=== PATIENT | male | born 1970 | race Caucasian/White ===

== ENCOUNTER 2017-04-06 07:15 | Inpatient (IN) | payer MEDICARE, OTHER ==
[~2017-04-06] VITALS: Ht 167.6 cm; Wt 62.0 kg
[~2017-04-06 07:15] MED LIST: AMLO10 PO; ASPI81EC PO; BUSP15; Bactrim Ds Tab1 EACH PO; CALCA500CH PO; CHLO25 PO; CIPR500 PO; CITA10S PO; CITA20 PO; Cymbalta60 MG PO; DEPRESSION MED; DIVA250EC PO; DIVA500EC PO; ESCI10; ESCI20; FLUO20 PO; HYDACE5 PO; HYDCHL25 PO; IBUP600 PO; IBUP800 PO; LISI10 PO; NAPR500; NAPR500 PO; Oxazepam10 MG PO; PENVK500; PENVK500 PO; PHENY100ER PO; PIRO20; POTCHL20ER PO; Protonix40 MG PO; QUET100; QUET25; RANI150; RANI150 PO; RXPENVK250 PO; SULTRISS PO; TAMS.4ER PO; TRAZ50
[2017-04-06] MEDS ORDERED: PHENY100ER PO ×2 (07:31)
[2017-04-06 10:43] LABS: BASOPHILS ABSOLUTE AUTO 0.02 K/mm3 (0.00-0.23); BASOPHILS PERCENT AUTO 0 % (0-2); EOSINOPHILS ABSOLUTE AUTO 0.08 K/mm3 (0.00-0.68); EOSINOPHILS PERCENT AUTO 1 % (0-6); Hematocrit 46.6 % (37.0-53.0); Hemoglobin 14.8 g/dL (13.5-17.5); IMMATURE GRAN ABSOLUTE AUTO 0.06 K/mm3 (0.00-0.10); IMMATURE GRAN PERCENT AUTO 1 % (0-1); LYMPHOCYTES ABSOLUTE AUTO 4.83 K/mm3 (0.84-5.20); LYMPHOCYTES PERCENT AUTO 45 % (21-46); MONOCYTES ABSOLUTE AUTO 0.43 K/mm3 (0.16-1.47); MONOCYTES PERCENT AUTO 4 % (4-13); Mean Corpuscular HGB Conc 31.8 g/dL (31.5-36.5); Mean Platelet Volume 8.7 fL (9.1-12.4); NEUTROPHILS ABSOLUTE AUTO 5.31 K/mm3 (1.96-9.15); NEUTROPHILS PERCENT AUTO 50 % (41-73); Platelet Count 514 K/mm3 (150-400); RDW Coefficient Variation 13.2 % (11.7-14.2); RDW Standard Deviation 49.1 fL (35.1-46.3); Red Blood Cell Count 4.62 M/mm3 (4.30-5.90); White Blood Cell Count 10.73 K/mm3 (4.00-11.30)
[2017-04-06 10:47] LABS: Mean Corpuscular Volume 101 fL (80-100)
[2017-04-06 11:05] LABS: Anion Gap 22 mmol/L (6-16); Blood Urea Nitrogen 10 mg/dL (8-24); CO2, Blood 12 mmol/L (21-32); Chloride, Blood 107 mmol/L (98-108); Creatinine, Blood 0.83 mg/dL (0.60-1.20); Dilantin (Phenytoin), Total 0.7 ug/mL (10.0-20.0); Glomerular Filtration Rate >60 (60-); Glucose, Blood 166 mg/dL (70-99); Potassium, Blood 4.8 mmol/L (3.5-5.5); Sodium, Blood 141 mmol/L (136-145)
[2017-04-06 11:21] LABS: Base Excess Venous -13.3 mmol/L; Bicarbonate Venous 14.7 mmol/L (24.0-30.0); PCO2 Venous 42.7 mmHg (38-42); PO2 Venous 308 mmHg (38-42)
[2017-04-06 11:22] LABS: pH Blood Venous 7.17 (7.34-7.37)
[2017-04-07 04:06] LABS: BASOPHILS ABSOLUTE AUTO 0.02 K/mm3 (0.00-0.23); BASOPHILS PERCENT AUTO 0 % (0-2); EOSINOPHILS ABSOLUTE AUTO 0.02 K/mm3 (0.00-0.68); EOSINOPHILS PERCENT AUTO 0 % (0-6); Hematocrit 33.4 % (37.0-53.0); Hemoglobin 11.1 g/dL (13.5-17.5); IMMATURE GRAN ABSOLUTE AUTO 0.01 K/mm3 (0.00-0.10); IMMATURE GRAN PERCENT AUTO 0 % (0-1); LYMPHOCYTES ABSOLUTE AUTO 1.29 K/mm3 (0.84-5.20); LYMPHOCYTES PERCENT AUTO 18 % (21-46); MONOCYTES ABSOLUTE AUTO 0.73 K/mm3 (0.16-1.47); MONOCYTES PERCENT AUTO 10 % (4-13); Mean Corpuscular HGB Conc 33.2 g/dL (31.5-36.5); Mean Platelet Volume 8.3 fL (9.1-12.4); NEUTROPHILS ABSOLUTE AUTO 5.09 K/mm3 (1.96-9.15); NEUTROPHILS PERCENT AUTO 71 % (41-73); Platelet Count 294 K/mm3 (150-400); RDW Coefficient Variation 13.1 % (11.7-14.2); RDW Standard Deviation 45.9 fL (35.1-46.3); Red Blood Cell Count 3.47 M/mm3 (4.30-5.90); White Blood Cell Count 7.16 K/mm3 (4.00-11.30)
[2017-04-07 04:12] LABS: Mean Corpuscular Volume 96 fL (80-100)
[2017-04-07 04:30] LABS: Magnesium, Blood 2.3 mg/dL (1.6-2.4)
[2017-04-07 04:34] LABS: Dilantin (Phenytoin), Total 16.9 ug/mL (10.0-20.0)
[2017-04-07 04:53] LABS: Alanine Aminotransfer (ALT/SGP 24 U/L (12-78); Alk Phos 68 U/L (50-136); Anion Gap 8 mmol/L (6-16); Aspartate Aminotrans (AST/SGOT 25 U/L (12-37); Bilirubin, Total 0.7 mg/dL (0.1-1.0); Blood Urea Nitrogen 9 mg/dL (8-24); Bun/Creatinine Ratio 10.4 (12.0-20.0); CO2, Blood 27 mmol/L (21-32); Calcium, Blood 7.7 mg/dL (8.5-10.1); Chloride, Blood 106 mmol/L (98-108); Creatinine, Blood 0.86 mg/dL (0.60-1.20); Globulin, Blood 2.9 g/dL (2.2-4.0); Glomerular Filtration Rate >60 (60-); Glucose, Blood 110 mg/dL (70-99); Potassium, Blood 3.1 mmol/L (3.5-5.5); Sodium, Blood 141 mmol/L (136-145); Total Protein, Blood 5.9 g/dL (6.4-8.2)
[2017-04-07 09:12] LABS: PCO2 Arterial 35.8 mmHg (35-45); pH Blood Arterial 7.49 (7.35-7.45)
[2017-04-08 06:36] LABS: BASOPHILS ABSOLUTE AUTO 0.02 K/mm3 (0.00-0.23); BASOPHILS PERCENT AUTO 0 % (0-2); EOSINOPHILS ABSOLUTE AUTO 0.26 K/mm3 (0.00-0.68); EOSINOPHILS PERCENT AUTO 4 % (0-6); Hematocrit 36.5 % (37.0-53.0); Hemoglobin 12.1 g/dL (13.5-17.5); IMMATURE GRAN ABSOLUTE AUTO 0.01 K/mm3 (0.00-0.10); IMMATURE GRAN PERCENT AUTO 0 % (0-1); LYMPHOCYTES ABSOLUTE AUTO 1.55 K/mm3 (0.84-5.20); LYMPHOCYTES PERCENT AUTO 23 % (21-46); MONOCYTES PERCENT AUTO 4 % (4-13); Mean Corpuscular HGB 31.8 pg (26.0-34.0); Mean Corpuscular HGB Conc 33.2 g/dL (31.5-36.5); Mean Corpuscular Volume 96 fL (80-100); Mean Platelet Volume 8.5 fL (9.1-12.4); NEUTROPHILS ABSOLUTE AUTO 4.63 K/mm3 (1.96-9.15); NEUTROPHILS PERCENT AUTO 69 % (41-73); Platelet Count 306 K/mm3 (150-400); RDW Coefficient Variation 12.9 % (11.7-14.2); RDW Standard Deviation 45.1 fL (35.1-46.3); Red Blood Cell Count 3.81 M/mm3 (4.30-5.90); White Blood Cell Count 6.77 K/mm3 (4.00-11.30)
[2017-04-08 06:53] LABS: Alanine Aminotransfer (ALT/SGP 24 U/L (12-78); Albumin, Blood 2.9 g/dL (3.4-5.0); Albumin/Globulin Ratio 0.8 (0.8-1.8); Alk Phos 69 U/L (50-136); Anion Gap 6 mmol/L (6-16); Aspartate Aminotrans (AST/SGOT 24 U/L (12-37); Bilirubin, Total 0.4 mg/dL (0.1-1.0); Blood Urea Nitrogen 4 mg/dL (8-24); Bun/Creatinine Ratio 5.2 (12.0-20.0); CO2, Blood 29 mmol/L (21-32); Chloride, Blood 106 mmol/L (98-108); Creatinine, Blood 0.77 mg/dL (0.60-1.20); Globulin, Blood 3.5 g/dL (2.2-4.0); Glomerular Filtration Rate >60 (60-); Glucose, Blood 122 mg/dL (70-99); Potassium, Blood 3.3 mmol/L (3.5-5.5); Sodium, Blood 141 mmol/L (136-145); Total Protein, Blood 6.4 g/dL (6.4-8.2)
[2017-04-09 05:59] LABS: Anion Gap 5 mmol/L (6-16); Blood Urea Nitrogen 6 mg/dL (8-24); Bun/Creatinine Ratio 7.8 (12.0-20.0); CO2, Blood 28 mmol/L (21-32); Calcium, Blood 8.1 mg/dL (8.5-10.1); Chloride, Blood 107 mmol/L (98-108); Creatinine, Blood 0.77 mg/dL (0.60-1.20); Glomerular Filtration Rate >60 (60-); Glucose, Blood 93 mg/dL (70-99); Potassium, Blood 3.8 mmol/L (3.5-5.5); Sodium, Blood 140 mmol/L (136-145)
[2017-04-09] MEDS ORDERED: Hair, Skin & N1 EACH PO ×2 (10:22)
[2017-04-09] MEDS ORDERED: PANT40 PO ×2 (10:22)
[2017-04-09] MEDS ORDERED: THIA100 PO ×2 (10:24)
[2017-10-25] MEDS ORDERED: PHENY100ER (03:55)
== END 2017-04-09 10:38 | disposition home or self-care (01) | DRG 208 ==
LOC: ER 07:15 → ICUW 12:10 → PCU 12:10 → ICUE 12:10 → PCU 04-07 19:42
PROVIDERS: Emergency Medicine; Internal Medicine; Internal Medicine Pulmonary Disease
PROC: 5A1935Z Respiratory Ventilation, Less than 24 Consecutive Hours (ICD-10-PCS; principal; 2017-04-06)
PROC: 0BH17EZ Insertion of Endotracheal Airway into Trachea, Via Natural or Artificial Opening (ICD-10-PCS; 2017-04-06)
DX: J69.0 Pneumonitis due to inhalation of food and vomit (principal); J96.01 Acute respiratory failure with hypoxia; G93.40 Encephalopathy, unspecified; F10.230 Alcohol dependence with withdrawal, uncomplicated; G40.909 Epilepsy, unspecified, not intractable, without status epilepticus; B19.20 Unspecified viral hepatitis C without hepatic coma; F95.2 Tourette's disorder; F20.9 Schizophrenia, unspecified; F32.9 Major depressive disorder, single episode, unspecified; N40.0 Benign prostatic hyperplasia without lower urinary tract symptoms; J44.9 Chronic obstructive pulmonary disease, unspecified; F17.210 Nicotine dependence, cigarettes, uncomplicated; R62.7 Adult failure to thrive; E87.6 Hypokalemia; F10.220 Alcohol dependence with intoxication, uncomplicated; W19.XXXA Unspecified fall, initial encounter; Z59.0 Homelessness; Z91.018 Allergy to other foods; Z79.899 Other long term (current) drug therapy; Z91.14 Patient's other noncompliance with medication regimen
CPT/HCPCS: 31500; 31720; 36415; 36600; 51702; 71045; 71046; 80048; 80053; 80185; 81003; 82803; 83735; 85025; 93005; 93010; 94002; 94003; 94640; 94760; 96365; 96366; 96375; 99283; 99291; 99292; C9113; G0480; J0696; J1165; J1630; J1650; J2060; J2250; J2543; J3010; J3411; J3475; J3480; J7030; J7042

== ENCOUNTER 2017-04-11 21:19 | Observation (INO) | payer MEDICARE, OTHER ==
[~2017-04-11] VITALS: Ht 172.7 cm; Wt 68.0 kg
[~2017-04-11 21:19] MED LIST changes: +Hair, Skin & N1 EACH PO; +PANT40 PO; +THIA100 PO
[2017-04-11 22:12] LABS: BASOPHILS ABSOLUTE AUTO 0.04 K/mm3 (0.00-0.23); BASOPHILS PERCENT AUTO 1 % (0-2); EOSINOPHILS ABSOLUTE AUTO 0.26 K/mm3 (0.00-0.68); EOSINOPHILS PERCENT AUTO 3 % (0-6); Hematocrit 39.9 % (37.0-53.0); Hemoglobin 13.3 g/dL (13.5-17.5); IMMATURE GRAN ABSOLUTE AUTO 0.06 K/mm3 (0.00-0.10); IMMATURE GRAN PERCENT AUTO 1 % (0-1); LYMPHOCYTES ABSOLUTE AUTO 2.43 K/mm3 (0.84-5.20); LYMPHOCYTES PERCENT AUTO 28 % (21-46); MONOCYTES ABSOLUTE AUTO 0.49 K/mm3 (0.16-1.47); MONOCYTES PERCENT AUTO 6 % (4-13); Mean Corpuscular HGB 31.9 pg (26.0-34.0); Mean Corpuscular HGB Conc 33.3 g/dL (31.5-36.5); Mean Corpuscular Volume 96 fL (80-100); Mean Platelet Volume 8.8 fL (9.1-12.4); NEUTROPHILS ABSOLUTE AUTO 5.46 K/mm3 (1.96-9.15); NEUTROPHILS PERCENT AUTO 62 % (41-73); Platelet Count 309 K/mm3 (150-400); RDW Standard Deviation 44.9 fL (35.1-46.3); Red Blood Cell Count 4.17 M/mm3 (4.30-5.90); White Blood Cell Count 8.74 K/mm3 (4.00-11.30)
[2017-04-11 22:36] LABS: Anion Gap 13 mmol/L (6-16); Blood Urea Nitrogen 7 mg/dL (8-24); Bun/Creatinine Ratio 12.3 (12.0-20.0); CO2, Blood 23 mmol/L (21-32); Calcium, Blood 8.4 mg/dL (8.5-10.1); Chloride, Blood 108 mmol/L (98-108); Creatinine, Blood 0.57 mg/dL (0.60-1.20); Dilantin (Phenytoin), Total 4.9 ug/mL (10.0-20.0); Glomerular Filtration Rate >60 (60-); Glucose, Blood 116 mg/dL (70-99); Potassium, Blood 3.4 mmol/L (3.5-5.5); Sodium, Blood 144 mmol/L (136-145)
[2017-04-11 22:40] LABS: Ethanol (Alcohol), Blood, Med 385 mg/dL
[2017-10-25] MEDS ORDERED: PHENY100ER (03:55)
== END 2017-04-12 06:42 | disposition home or self-care (01) ==
LOC: ER 21:19 → EOR 21:20
PROVIDERS: Emergency Medicine
DX: F10.129 Alcohol abuse with intoxication, unspecified (principal); F20.9 Schizophrenia, unspecified; F06.2 Psychotic disorder with delusions due to known physiological condition; F95.2 Tourette's disorder; R48.0 Dyslexia and alexia; Z90.49 Acquired absence of other specified parts of digestive tract; Z86.19 Personal history of other infectious and parasitic diseases; Z86.14 Personal history of Methicillin resistant Staphylococcus aureus infection; Z91.018 Allergy to other foods; Z79.899 Other long term (current) drug therapy; Z98.890 Other specified postprocedural states; Y90.8 Blood alcohol level of 240 mg/100 ml or more
CPT/HCPCS: 80048; 80185; 85025; 99285; G0378; G0480; J1630

== ENCOUNTER 2017-04-14 18:00 | Observation (INO) | payer MEDICARE, OTHER ==
[~2017-04-14] VITALS: Ht 165.1 cm; Wt 59.0 kg
[2017-04-14 19:01] LABS: BASOPHILS ABSOLUTE AUTO 0.02 K/mm3 (0.00-0.23); BASOPHILS PERCENT AUTO 0 % (0-2); EOSINOPHILS ABSOLUTE AUTO 0.08 K/mm3 (0.00-0.68); EOSINOPHILS PERCENT AUTO 2 % (0-6); Hematocrit 39.4 % (37.0-53.0); Hemoglobin 13.1 g/dL (13.5-17.5); IMMATURE GRAN ABSOLUTE AUTO 0.05 K/mm3 (0.00-0.10); IMMATURE GRAN PERCENT AUTO 1 % (0-1); LYMPHOCYTES ABSOLUTE AUTO 2.28 K/mm3 (0.84-5.20); LYMPHOCYTES PERCENT AUTO 44 % (21-46); MONOCYTES ABSOLUTE AUTO 0.21 K/mm3 (0.16-1.47); MONOCYTES PERCENT AUTO 4 % (4-13); Mean Corpuscular HGB 32.3 pg (26.0-34.0); Mean Corpuscular HGB Conc 33.2 g/dL (31.5-36.5); Mean Corpuscular Volume 97 fL (80-100); Mean Platelet Volume 9.3 fL (9.1-12.4); NEUTROPHILS ABSOLUTE AUTO 2.54 K/mm3 (1.96-9.15); NEUTROPHILS PERCENT AUTO 49 % (41-73); Platelet Count 158 K/mm3 (150-400); RDW Coefficient Variation 13.5 % (11.7-14.2); RDW Standard Deviation 48.2 fL (35.1-46.3); Red Blood Cell Count 4.06 M/mm3 (4.30-5.90); White Blood Cell Count 5.18 K/mm3 (4.00-11.30)
[2017-04-14 19:23] LABS: Anion Gap 7 mmol/L (6-16); Blood Urea Nitrogen 8 mg/dL (8-24); Bun/Creatinine Ratio 12.8 (12.0-20.0); CO2, Blood 28 mmol/L (21-32); Calcium, Blood 8.7 mg/dL (8.5-10.1); Chloride, Blood 109 mmol/L (98-108); Creatinine, Blood 0.62 mg/dL (0.60-1.20); Glomerular Filtration Rate >60 (60-); Glucose, Blood 96 mg/dL (70-99); Sodium, Blood 144 mmol/L (136-145)
[2017-04-14 19:26] LABS: Ethanol (Alcohol), Blood, Med 305 mg/dL
[2017-10-25] MEDS ORDERED: PHENY100ER (03:55)
== END 2017-04-15 01:39 | disposition home or self-care (01) ==
LOC: ER 18:00 → EOR 18:01
PROVIDERS: Emergency Medicine
DX: S20.211A Contusion of right front wall of thorax, initial encounter (principal); F10.129 Alcohol abuse with intoxication, unspecified; F95.2 Tourette's disorder; F17.210 Nicotine dependence, cigarettes, uncomplicated; R48.0 Dyslexia and alexia; F20.9 Schizophrenia, unspecified; Z86.19 Personal history of other infectious and parasitic diseases; Z86.14 Personal history of Methicillin resistant Staphylococcus aureus infection; Z91.018 Allergy to other foods; Z90.49 Acquired absence of other specified parts of digestive tract; Z98.890 Other specified postprocedural states; Z79.899 Other long term (current) drug therapy; Y90.8 Blood alcohol level of 240 mg/100 ml or more; W08.XXXA Fall from other furniture, initial encounter
CPT/HCPCS: 70450; 71260; 72125; 80048; 85025; 96365; 96375; 99285; G0378; G0480; J1165; J1200; J1630; J2060; Q9967

== ENCOUNTER 2017-04-18 17:49 | Observation (INO) | payer MEDICARE, OTHER ==
[~2017-04-18] VITALS: Ht 170.2 cm; Wt 63.5 kg
[2017-04-18 22:45] LABS: BASOPHILS ABSOLUTE AUTO 0.04 K/mm3 (0.00-0.23); BASOPHILS PERCENT AUTO 1 % (0-2); EOSINOPHILS PERCENT AUTO 2 % (0-6); Hematocrit 40.3 % (37.0-53.0); Hemoglobin 13.1 g/dL (13.5-17.5); IMMATURE GRAN ABSOLUTE AUTO 0.06 K/mm3 (0.00-0.10); IMMATURE GRAN PERCENT AUTO 1 % (0-1); LYMPHOCYTES ABSOLUTE AUTO 1.95 K/mm3 (0.84-5.20); LYMPHOCYTES PERCENT AUTO 33 % (21-46); MONOCYTES ABSOLUTE AUTO 0.44 K/mm3 (0.16-1.47); MONOCYTES PERCENT AUTO 8 % (4-13); Mean Corpuscular HGB 31.5 pg (26.0-34.0); Mean Corpuscular HGB Conc 32.5 g/dL (31.5-36.5); Mean Corpuscular Volume 97 fL (80-100); Mean Platelet Volume 8.4 fL (9.1-12.4); NEUTROPHILS PERCENT AUTO 56 % (41-73); Platelet Count 253 K/mm3 (150-400); RDW Coefficient Variation 13.8 % (11.7-14.2); RDW Standard Deviation 48.5 fL (35.1-46.3); Red Blood Cell Count 4.16 M/mm3 (4.30-5.90); White Blood Cell Count 5.89 K/mm3 (4.00-11.30)
[2017-04-18 23:01] LABS: Anion Gap 9 mmol/L (6-16); Blood Urea Nitrogen 11 mg/dL (8-24); Bun/Creatinine Ratio 19.4 (12.0-20.0); CO2, Blood 25 mmol/L (21-32); Calcium, Blood 7.9 mg/dL (8.5-10.1); Chloride, Blood 113 mmol/L (98-108); Creatinine, Blood 0.57 mg/dL (0.60-1.20); Glomerular Filtration Rate >60 (60-); Glucose, Blood 97 mg/dL (70-99); Potassium, Blood 3.7 mmol/L (3.5-5.5); Sodium, Blood 147 mmol/L (136-145)
[2017-04-18 23:08] LABS: Ethanol (Alcohol), Blood, Med 516 mg/dL
[2017-10-25] MEDS ORDERED: PHENY100ER (03:55)
== END 2017-04-19 10:35 | disposition home or self-care (01) ==
LOC: ER 17:49 → EOR 17:50
PROVIDERS: Emergency Medicine
DX: F10.129 Alcohol abuse with intoxication, unspecified (principal); R45.851 Suicidal ideations; R56.9 Unspecified convulsions; Z86.19 Personal history of other infectious and parasitic diseases; F20.9 Schizophrenia, unspecified; Z90.49 Acquired absence of other specified parts of digestive tract; Z98.890 Other specified postprocedural states; Z86.14 Personal history of Methicillin resistant Staphylococcus aureus infection; Y90.8 Blood alcohol level of 240 mg/100 ml or more; Z79.899 Other long term (current) drug therapy
CPT/HCPCS: 36415; 80048; 85025; 96372; 99285; G0378; G0480; J1630

== ENCOUNTER 2017-04-21 16:21 | Observation (INO) | payer MEDICARE, OTHER ==
[~2017-04-21] VITALS: Ht 167.6 cm; Wt 63.5 kg
[2017-04-21 16:59] LABS: BASOPHILS ABSOLUTE AUTO 0.05 K/mm3 (0.00-0.23); BASOPHILS PERCENT AUTO 1 % (0-2); EOSINOPHILS ABSOLUTE AUTO 0.05 K/mm3 (0.00-0.68); EOSINOPHILS PERCENT AUTO 1 % (0-6); Hematocrit 42.5 % (37.0-53.0); Hemoglobin 14.3 g/dL (13.5-17.5); IMMATURE GRAN ABSOLUTE AUTO 0.02 K/mm3 (0.00-0.10); IMMATURE GRAN PERCENT AUTO 0 % (0-1); LYMPHOCYTES ABSOLUTE AUTO 1.95 K/mm3 (0.84-5.20); LYMPHOCYTES PERCENT AUTO 31 % (21-46); MONOCYTES ABSOLUTE AUTO 0.37 K/mm3 (0.16-1.47); MONOCYTES PERCENT AUTO 6 % (4-13); Mean Corpuscular HGB 31.7 pg (26.0-34.0); Mean Corpuscular HGB Conc 33.6 g/dL (31.5-36.5); Mean Platelet Volume 8.2 fL (9.1-12.4); NEUTROPHILS ABSOLUTE AUTO 3.82 K/mm3 (1.96-9.15); NEUTROPHILS PERCENT AUTO 61 % (41-73); Platelet Count 344 K/mm3 (150-400); RDW Coefficient Variation 13.4 % (11.7-14.2); RDW Standard Deviation 46.4 fL (35.1-46.3); Red Blood Cell Count 4.51 M/mm3 (4.30-5.90); White Blood Cell Count 6.26 K/mm3 (4.00-11.30)
[2017-04-21 17:15] LABS: Anion Gap 8 mmol/L (6-16); Blood Urea Nitrogen 8 mg/dL (8-24); Bun/Creatinine Ratio 12.9 (12.0-20.0); CO2, Blood 29 mmol/L (21-32); Chloride, Blood 103 mmol/L (98-108); Creatinine, Blood 0.62 mg/dL (0.60-1.20); Glomerular Filtration Rate >60 (60-); Glucose, Blood 109 mg/dL (70-99); Potassium, Blood 3.9 mmol/L (3.5-5.5); Sodium, Blood 140 mmol/L (136-145)
[2017-04-21 17:18] LABS: Ethanol (Alcohol), Blood, Med 488 mg/dL
[2017-04-21 17:29] LABS: Mean Corpuscular Volume 94 fL (80-100)
[2017-10-25] MEDS ORDERED: PHENY100ER (03:55)
== END 2017-04-21 20:45 | disposition home or self-care (01) ==
LOC: ER 16:21 → EOR 16:22
PROVIDERS: Emergency Medicine
DX: F10.129 Alcohol abuse with intoxication, unspecified (principal); F20.9 Schizophrenia, unspecified; F95.2 Tourette's disorder; R48.0 Dyslexia and alexia; F80.81 Childhood onset fluency disorder; Z90.49 Acquired absence of other specified parts of digestive tract; Z98.890 Other specified postprocedural states; Z91.018 Allergy to other foods; Z59.0 Homelessness; Y90.8 Blood alcohol level of 240 mg/100 ml or more
CPT/HCPCS: 36415; 80048; 85025; 96361; 96372; 96374; 99283; 99285; G0378; G0480; J1630; J2250; J7030

== ENCOUNTER 2017-04-21 21:03 | Emergency (ER) | payer MEDICARE, OTHER ==
[2017-10-25] MEDS ORDERED: PHENY100ER (03:55)
== END 2017-04-21 21:54 | disposition left against medical advice (07) ==
LOC: ER 21:03
DX: Z53.21 Procedure and treatment not carried out due to patient leaving prior to being seen by health care provider (principal)

== ENCOUNTER 2017-04-24 19:04 | Observation (INO) | payer MEDICARE, OTHER ==
[~2017-04-24] VITALS: Ht 167.6 cm; Wt 68.0 kg
[2017-04-24 22:08] LABS: BASOPHILS ABSOLUTE AUTO 0.04 K/mm3 (0.00-0.23); BASOPHILS PERCENT AUTO 1 % (0-2); EOSINOPHILS ABSOLUTE AUTO 0.16 K/mm3 (0.00-0.68); EOSINOPHILS PERCENT AUTO 3 % (0-6); Hematocrit 44.6 % (37.0-53.0); Hemoglobin 14.9 g/dL (13.5-17.5); IMMATURE GRAN ABSOLUTE AUTO 0.04 K/mm3 (0.00-0.10); IMMATURE GRAN PERCENT AUTO 1 % (0-1); LYMPHOCYTES ABSOLUTE AUTO 1.74 K/mm3 (0.84-5.20); LYMPHOCYTES PERCENT AUTO 32 % (21-46); MONOCYTES PERCENT AUTO 6 % (4-13); Mean Corpuscular HGB Conc 33.4 g/dL (31.5-36.5); Mean Corpuscular Volume 96 fL (80-100); Mean Platelet Volume 8.5 fL (9.1-12.4); NEUTROPHILS ABSOLUTE AUTO 3.19 K/mm3 (1.96-9.15); NEUTROPHILS PERCENT AUTO 58 % (41-73); Platelet Count 299 K/mm3 (150-400); RDW Coefficient Variation 14.2 % (11.7-14.2); RDW Standard Deviation 49.1 fL (35.1-46.3); Red Blood Cell Count 4.66 M/mm3 (4.30-5.90); White Blood Cell Count 5.47 K/mm3 (4.00-11.30)
[2017-04-24 22:34] LABS: Alanine Aminotransfer (ALT/SGP 25 U/L (12-78); Albumin, Blood 4.2 g/dL (3.4-5.0); Alk Phos 93 U/L (50-136); Anion Gap 11 mmol/L (6-16); Aspartate Aminotrans (AST/SGOT 29 U/L (12-37); Bilirubin, Total 0.2 mg/dL (0.1-1.0); Blood Urea Nitrogen 8 mg/dL (8-24); Bun/Creatinine Ratio 13.1 (12.0-20.0); CO2, Blood 26 mmol/L (21-32); Calcium, Blood 8.5 mg/dL (8.5-10.1); Chloride, Blood 108 mmol/L (98-108); Creatinine, Blood 0.61 mg/dL (0.60-1.20); Globulin, Blood 4.2 g/dL (2.2-4.0); Glomerular Filtration Rate >60 (60-); Glucose, Blood 109 mg/dL (70-99); Magnesium, Blood 2.5 mg/dL (1.6-2.4); Potassium, Blood 3.5 mmol/L (3.5-5.5); Sodium, Blood 145 mmol/L (136-145); Total Protein, Blood 8.4 g/dL (6.4-8.2)
[2017-04-24 22:45] LABS: Ethanol (Alcohol), Blood, Med 377 mg/dL
[2017-04-25] MEDS ORDERED: RID COMPLETE TOP (05:42)
[2017-10-25] MEDS ORDERED: PHENY100ER (03:55)
== END 2017-04-25 05:47 | disposition home or self-care (01) ==
LOC: ER 19:04 → EOR 19:05
PROVIDERS: Emergency Medicine
DX: F10.129 Alcohol abuse with intoxication, unspecified (principal); B85.2 Pediculosis, unspecified; F20.9 Schizophrenia, unspecified; F95.2 Tourette's disorder; R48.0 Dyslexia and alexia; Z86.14 Personal history of Methicillin resistant Staphylococcus aureus infection; Z86.19 Personal history of other infectious and parasitic diseases; Z79.899 Other long term (current) drug therapy; Z91.018 Allergy to other foods; Z90.49 Acquired absence of other specified parts of digestive tract; Z98.890 Other specified postprocedural states; Y90.8 Blood alcohol level of 240 mg/100 ml or more
CPT/HCPCS: 80053; 83735; 85025; 96372; 99285; G0378; G0480; J3486

== ENCOUNTER 2017-05-09 11:21 | Emergency (ER) | payer MEDICARE, OTHER ==
[~2017-05-09] VITALS: Ht 167.6 cm; Wt 63.5 kg
[~2017-05-09 11:21] MED LIST changes: +RID COMPLETE TOP
[2017-05-09 13:10] LABS: Calcium, Ionized (POC) 1.09 mmol/L (1.10-1.46); Chloride (POC) 102 mmol/L (98-108); Creatinine (POC) 0.7 mg/dL (0.8-1.3); Glucose (ISTAT POC) 94 mg/dL (70-99); Hemoglobin (POC) 16.3 g/dL (13.5-17.5); Potassium (POC) 4.3 mmol/L (3.5-5.5); Sodium (POC) 140 mmol/L (135-148); Total CO2 (POC) 29 mmol/L (21-32)
[2017-05-09] MEDS ORDERED: LEVE500 PO (13:28)
[2017-05-09] MEDS ORDERED: CHLO25 PO (13:28)
[2017-10-25] MEDS ORDERED: PHENY100ER (03:55)
== END 2017-05-09 13:35 | disposition home or self-care (01) ==
LOC: ER 11:21
PROVIDERS: Emergency Medicine
DX: R56.9 Unspecified convulsions (principal); S20.212A Contusion of left front wall of thorax, initial encounter; F10.239 Alcohol dependence with withdrawal, unspecified; F20.9 Schizophrenia, unspecified; F17.210 Nicotine dependence, cigarettes, uncomplicated; Z86.14 Personal history of Methicillin resistant Staphylococcus aureus infection; Z90.49 Acquired absence of other specified parts of digestive tract; Z91.018 Allergy to other foods; X58.XXXA Exposure to other specified factors, initial encounter; Y92.149 Unspecified place in prison as the place of occurrence of the external cause
CPT/HCPCS: 71101; 80047; 85014; 93005; 93010; 99284

== ENCOUNTER 2017-05-14 04:12 | Emergency (ER) | payer MEDICARE, OTHER ==
[~2017-05-14] VITALS: Ht 167.6 cm; Wt 65.8 kg
[~2017-05-14 04:12] MED LIST changes: +LEVE500 PO
[2017-05-14 06:36] LABS: BASOPHILS ABSOLUTE AUTO 0.02 K/mm3 (0.00-0.23); BASOPHILS PERCENT AUTO 0 % (0-2); EOSINOPHILS ABSOLUTE AUTO 0.02 K/mm3 (0.00-0.68); EOSINOPHILS PERCENT AUTO 0 % (0-6); Hematocrit 39.9 % (37.0-53.0); Hemoglobin 14.2 g/dL (13.5-17.5); IMMATURE GRAN ABSOLUTE AUTO 0.02 K/mm3 (0.00-0.10); IMMATURE GRAN PERCENT AUTO 0 % (0-1); LYMPHOCYTES ABSOLUTE AUTO 1.12 K/mm3 (0.84-5.20); LYMPHOCYTES PERCENT AUTO 19 % (21-46); MONOCYTES ABSOLUTE AUTO 0.61 K/mm3 (0.16-1.47); MONOCYTES PERCENT AUTO 10 % (4-13); Mean Corpuscular HGB 32.9 pg (26.0-34.0); Mean Corpuscular HGB Conc 35.6 g/dL (31.5-36.5); Mean Corpuscular Volume 92 fL (80-100); Mean Platelet Volume 8.9 fL (9.1-12.4); NEUTROPHILS PERCENT AUTO 70 % (41-73); Platelet Count 248 K/mm3 (150-400); RDW Coefficient Variation 13.2 % (11.7-14.2); RDW Standard Deviation 44.6 fL (35.1-46.3); Red Blood Cell Count 4.32 M/mm3 (4.30-5.90); White Blood Cell Count 5.99 K/mm3 (4.00-11.30)
[2017-05-14 06:54] LABS: Alanine Aminotransfer (ALT/SGP 28 U/L (12-78); Albumin, Blood 3.7 g/dL (3.4-5.0); Alk Phos 73 U/L (50-136); Anion Gap 10 mmol/L (6-16); Aspartate Aminotrans (AST/SGOT 36 U/L (12-37); Bilirubin, Total 0.8 mg/dL (0.1-1.0); Blood Urea Nitrogen 13 mg/dL (8-24); Bun/Creatinine Ratio 19.8 (12.0-20.0); CO2, Blood 32 mmol/L (21-32); Calcium, Blood 9.3 mg/dL (8.5-10.1); Chloride, Blood 92 mmol/L (98-108); Creatinine, Blood 0.66 mg/dL (0.60-1.20); Ethanol (Alcohol), Blood, Med <3 mg/dL; Globulin, Blood 3.7 g/dL (2.2-4.0); Glomerular Filtration Rate >60 (60-); Glucose, Blood 90 mg/dL (70-99); Potassium, Blood 2.9 mmol/L (3.5-5.5); Salicylate 2.1 mg/dL (2.8-20.0); Sodium, Blood 134 mmol/L (136-145); Total Protein, Blood 7.4 g/dL (6.4-8.2)
[2017-05-14 07:25] LABS: Acetaminophen, Random <2.0 ug/mL (10.0-30.0)
[2017-05-14] MEDS ORDERED: Prilosec Otc20 MG PO (09:14)
[2017-10-25] MEDS ORDERED: PHENY100ER (03:55)
== END 2017-05-14 09:44 | disposition home or self-care (01) ==
LOC: ER 04:12
PROVIDERS: Emergency Medicine
DX: S20.219A Contusion of unspecified front wall of thorax, initial encounter (principal); R45.851 Suicidal ideations; Z59.0 Homelessness; F32.9 Major depressive disorder, single episode, unspecified; F10.10 Alcohol abuse, uncomplicated; W50.0XXA Accidental hit or strike by another person, initial encounter; Z88.8 Allergy status to other drugs, medicaments and biological substances; Z79.899 Other long term (current) drug therapy
CPT/HCPCS: 71046; 80053; 85025; 93005; 93010; 99283; G0480

== ENCOUNTER 2017-05-18 02:39 | Observation (INO) | payer MEDICARE, OTHER ==
[~2017-05-18] VITALS: Ht 167.6 cm; Wt 59.0 kg
[~2017-05-18 02:39] MED LIST changes: +Prilosec Otc20 MG PO
[2017-05-18 03:43] LABS: BASOPHILS ABSOLUTE AUTO 0.04 K/mm3 (0.00-0.23); BASOPHILS PERCENT AUTO 1 % (0-2); EOSINOPHILS ABSOLUTE AUTO 0.09 K/mm3 (0.00-0.68); EOSINOPHILS PERCENT AUTO 2 % (0-6); Hematocrit 41.4 % (37.0-53.0); Hemoglobin 14.2 g/dL (13.5-17.5); IMMATURE GRAN ABSOLUTE AUTO 0.05 K/mm3 (0.00-0.10); IMMATURE GRAN PERCENT AUTO 1 % (0-1); LYMPHOCYTES ABSOLUTE AUTO 2.18 K/mm3 (0.84-5.20); LYMPHOCYTES PERCENT AUTO 42 % (21-46); MONOCYTES ABSOLUTE AUTO 0.51 K/mm3 (0.16-1.47); MONOCYTES PERCENT AUTO 10 % (4-13); Mean Corpuscular HGB 32.7 pg (26.0-34.0); Mean Corpuscular HGB Conc 34.3 g/dL (31.5-36.5); Mean Corpuscular Volume 95 fL (80-100); Mean Platelet Volume 8.3 fL (9.1-12.4); NEUTROPHILS ABSOLUTE AUTO 2.36 K/mm3 (1.96-9.15); NEUTROPHILS PERCENT AUTO 45 % (41-73); Platelet Count 296 K/mm3 (150-400); RDW Coefficient Variation 13.6 % (11.7-14.2); Red Blood Cell Count 4.34 M/mm3 (4.30-5.90); White Blood Cell Count 5.23 K/mm3 (4.00-11.30)
[2017-05-18 03:48] LABS: Source, Urine Clean Catch
[2017-05-18 03:50] LABS: Appearance, Urine Clear (Clear); Bilirubin, Urine Neg (Neg); Blood, Urine Neg (Neg); Color, Urine Yellow (P-Yellow); Glucose Qualitative, Urine Neg (Neg); Ketones, Urine Neg (Neg); Leukocyte Esterase, Urine Neg (Neg); Nitrite, Urine Neg (Neg); Protein, Urine Neg (Neg); Urobilinogen, Urine NORM (Normal)
[2017-05-18 04:04] LABS: U Amphetamine Screen Not Detected; U Barbituate Screen Not Detected; U Benzodiazapine Screen DETECTED; U Buprenorphine Screen Not Detected; U Cannabinoids Screen DETECTED; U Cocaine Screen Not Detected; U Methadone Screen Not Detected; U Methamphetamine Screen Not Detected; U Opiates Screen Not Detected; U Oxycodone Screen Not Detected; U Phencyclidine Screen Not Detected; U Propoxyphene Screen Not Detected
[2017-05-18 04:05] LABS: Alanine Aminotransfer (ALT/SGP 28 U/L (12-78); Albumin, Blood 3.7 g/dL (3.4-5.0); Alk Phos 71 U/L (50-136); Anion Gap 9 mmol/L (6-16); Aspartate Aminotrans (AST/SGOT 34 U/L (12-37); Bilirubin, Total 0.2 mg/dL (0.1-1.0); Blood Urea Nitrogen 5 mg/dL (8-24); Bun/Creatinine Ratio 7.6 (12.0-20.0); CO2, Blood 32 mmol/L (21-32); Calcium, Blood 8.7 mg/dL (8.5-10.1); Chloride, Blood 97 mmol/L (98-108); Creatinine, Blood 0.66 mg/dL (0.60-1.20); Ethanol (Alcohol), Blood, Med 189 mg/dL; Globulin, Blood 3.6 g/dL (2.2-4.0); Glomerular Filtration Rate >60 (60-); Glucose, Blood 72 mg/dL (70-99); Salicylate 3.4 mg/dL (2.8-20.0); Sodium, Blood 138 mmol/L (136-145); Total Protein, Blood 7.3 g/dL (6.4-8.2)
[2017-05-18 04:18] LABS: Acetaminophen, Random <2.0 ug/mL (10.0-30.0)
[2017-10-25] MEDS ORDERED: PHENY100ER (03:55)
== END 2017-05-18 04:53 | disposition home or self-care (01) ==
LOC: ER 02:39 → EOR 02:40
PROVIDERS: Emergency Medicine
DX: F10.129 Alcohol abuse with intoxication, unspecified (principal); R45.851 Suicidal ideations; F20.9 Schizophrenia, unspecified; F95.2 Tourette's disorder; F17.210 Nicotine dependence, cigarettes, uncomplicated; F80.81 Childhood onset fluency disorder; R48.0 Dyslexia and alexia; Z86.19 Personal history of other infectious and parasitic diseases; Z86.14 Personal history of Methicillin resistant Staphylococcus aureus infection; Z90.49 Acquired absence of other specified parts of digestive tract; Z91.018 Allergy to other foods; Z98.890 Other specified postprocedural states; Y90.6 Blood alcohol level of 120-199 mg/100 ml
CPT/HCPCS: 36415; 80053; 81003; 84443; 85025; 99285; G0378; G0480

== ENCOUNTER 2017-05-24 15:44 | Emergency (ER) | payer MEDICARE, OTHER ==
[~2017-05-24] VITALS: Ht 170.2 cm; Wt 68.0 kg
[2017-05-24 16:08] LABS: BASOPHILS ABSOLUTE AUTO 0.03 K/mm3 (0.00-0.23); BASOPHILS PERCENT AUTO 1 % (0-2); EOSINOPHILS PERCENT AUTO 2 % (0-6); Hematocrit 36.6 % (37.0-53.0); Hemoglobin 12.1 g/dL (13.5-17.5); IMMATURE GRAN ABSOLUTE AUTO 0.03 K/mm3 (0.00-0.10); IMMATURE GRAN PERCENT AUTO 1 % (0-1); LYMPHOCYTES ABSOLUTE AUTO 1.33 K/mm3 (0.84-5.20); LYMPHOCYTES PERCENT AUTO 27 % (21-46); MONOCYTES ABSOLUTE AUTO 0.44 K/mm3 (0.16-1.47); MONOCYTES PERCENT AUTO 9 % (4-13); Mean Corpuscular HGB 32.4 pg (26.0-34.0); Mean Corpuscular HGB Conc 33.1 g/dL (31.5-36.5); Mean Platelet Volume 8.6 fL (9.1-12.4); NEUTROPHILS ABSOLUTE AUTO 3.05 K/mm3 (1.96-9.15); NEUTROPHILS PERCENT AUTO 61 % (41-73); Platelet Count 327 K/mm3 (150-400); RDW Coefficient Variation 13.8 % (11.7-14.2); RDW Standard Deviation 50.1 fL (35.1-46.3); Red Blood Cell Count 3.74 M/mm3 (4.30-5.90); White Blood Cell Count 4.98 K/mm3 (4.00-11.30)
[2017-05-24] MEDS ORDERED: RID COMPLETE TP (16:13)
[2017-05-24 16:16] LABS: Mean Corpuscular Volume 98 fL (80-100)
[2017-05-24 16:28] LABS: Anion Gap 19 mmol/L (6-16); Blood Urea Nitrogen 7 mg/dL (8-24); Bun/Creatinine Ratio 9.4 (12.0-20.0); CO2, Blood 15 mmol/L (21-32); Calcium, Blood 8.3 mg/dL (8.5-10.1); Chloride, Blood 101 mmol/L (98-108); Creatinine, Blood 0.75 mg/dL (0.60-1.20); Ethanol (Alcohol), Blood, Med 25 mg/dL; Glomerular Filtration Rate >60 (60-); Glucose, Blood 83 mg/dL (70-99); Magnesium, Blood 2.1 mg/dL (1.6-2.4); Potassium, Blood 3.3 mmol/L (3.5-5.5); Sodium, Blood 135 mmol/L (136-145)
[2017-05-24] MEDS ORDERED: LEVE500 PO (18:02)
[2017-10-25] MEDS ORDERED: PHENY100ER (03:55)
== END 2017-05-24 18:35 | disposition home or self-care (01) ==
LOC: ER 15:44
PROVIDERS: Emergency Medicine
DX: G40.909 Epilepsy, unspecified, not intractable, without status epilepticus (principal); E87.6 Hypokalemia; Z91.018 Allergy to other foods; Z79.899 Other long term (current) drug therapy; F20.9 Schizophrenia, unspecified; F17.210 Nicotine dependence, cigarettes, uncomplicated
CPT/HCPCS: 80048; 83735; 85025; 99283; G0480

== ENCOUNTER 2017-06-15 15:22 | Emergency (ER) | payer MEDICARE, OTHER ==
[~2017-06-15] VITALS: Ht 167.6 cm; Wt 63.5 kg
[~2017-06-15 15:22] MED LIST changes: +RID COMPLETE TP
[2017-06-15 16:25] LABS: Hematocrit 43.5 % (37.0-53.0); Hemoglobin 14.7 g/dL (13.5-17.5); Mean Corpuscular HGB 32.3 pg (26.0-34.0); Mean Corpuscular HGB Conc 33.8 g/dL (31.5-36.5); Mean Corpuscular Volume 96 fL (80-100); Mean Platelet Volume 8.5 fL (9.1-12.4); Platelet Count 317 K/mm3 (150-400); RDW Coefficient Variation 13.5 % (11.7-14.2); RDW Standard Deviation 47.8 fL (35.1-46.3); Red Blood Cell Count 4.55 M/mm3 (4.30-5.90); White Blood Cell Count 8.06 K/mm3 (4.00-11.30)
[2017-06-15 16:49] LABS: Anion Gap 13 mmol/L (6-16); Blood Urea Nitrogen 8 mg/dL (8-24); Bun/Creatinine Ratio 12.9 (12.0-20.0); CO2, Blood 24 mmol/L (21-32); Chloride, Blood 100 mmol/L (98-108); Creatinine, Blood 0.62 mg/dL (0.60-1.20); Glomerular Filtration Rate >60 (60-); Glucose, Blood 94 mg/dL (70-99); Magnesium, Blood 2.6 mg/dL (1.6-2.4); Potassium, Blood 3.2 mmol/L (3.5-5.5); Sodium, Blood 137 mmol/L (136-145)
[2017-06-15 16:54] LABS: Ethanol (Alcohol), Blood, Med 379 mg/dL
[2017-06-15] MEDS ORDERED: Lice Killing240 ML TOP (17:32)
[2017-10-25] MEDS ORDERED: PHENY100ER (03:55)
== END 2017-06-15 18:27 | disposition home or self-care (01) ==
LOC: ER 15:22
PROVIDERS: Emergency Medicine
DX: F10.129 Alcohol abuse with intoxication, unspecified (principal); B85.2 Pediculosis, unspecified; F17.200 Nicotine dependence, unspecified, uncomplicated; J44.9 Chronic obstructive pulmonary disease, unspecified; G40.909 Epilepsy, unspecified, not intractable, without status epilepticus; I10 Essential (primary) hypertension; F20.9 Schizophrenia, unspecified; Z86.19 Personal history of other infectious and parasitic diseases; Z90.49 Acquired absence of other specified parts of digestive tract; Z98.890 Other specified postprocedural states
CPT/HCPCS: 36415; 71045; 80048; 83735; 85027; 99283; G0480

== ENCOUNTER 2017-06-18 16:36 | Observation (INO) | payer MEDICARE, OTHER ==
[~2017-06-18] VITALS: Ht 177.8 cm; Wt 81.7 kg
[~2017-06-18 16:36] MED LIST changes: +Lice Killing240 ML TOP
[2017-10-25] MEDS ORDERED: PHENY100ER (03:55)
== END 2017-06-18 20:10 | disposition home or self-care (01) ==
LOC: ER 16:36 → EOR 16:37
DX: F10.129 Alcohol abuse with intoxication, unspecified (principal); G92 Toxic encephalopathy; G40.909 Epilepsy, unspecified, not intractable, without status epilepticus; F95.2 Tourette's disorder; F80.81 Childhood onset fluency disorder; R48.0 Dyslexia and alexia; F20.9 Schizophrenia, unspecified; F17.210 Nicotine dependence, cigarettes, uncomplicated; Z86.14 Personal history of Methicillin resistant Staphylococcus aureus infection; Z91.018 Allergy to other foods; Z86.19 Personal history of other infectious and parasitic diseases; Z90.49 Acquired absence of other specified parts of digestive tract; Z98.890 Other specified postprocedural states
CPT/HCPCS: 96361; 96374; 99285; G0378; J2405; J7030

== ENCOUNTER 2017-06-26 19:17 | Observation (INO) | payer MEDICARE, OTHER ==
[~2017-06-26] VITALS: Ht 167.6 cm; Wt 63.5 kg
[2017-10-25] MEDS ORDERED: PHENY100ER (03:55)
== END 2017-06-27 05:30 | disposition home or self-care (01) ==
LOC: ER 19:17 → EOR 19:18
DX: F10.129 Alcohol abuse with intoxication, unspecified (principal); B19.20 Unspecified viral hepatitis C without hepatic coma; F95.2 Tourette's disorder; F20.9 Schizophrenia, unspecified; Z79.899 Other long term (current) drug therapy
CPT/HCPCS: 99285; G0378

== ENCOUNTER 2017-07-04 18:59 | Observation (INO) | payer MEDICARE, OTHER ==
[~2017-07-04] VITALS: Ht 172.7 cm; Wt 61.3 kg
[2017-07-04 20:00] LABS: BASOPHILS ABSOLUTE AUTO 0.05 K/mm3 (0.00-0.23); BASOPHILS PERCENT AUTO 1 % (0-2); EOSINOPHILS PERCENT AUTO 14 % (0-6); Hematocrit 37.4 % (37.0-53.0); Hemoglobin 12.9 g/dL (13.5-17.5); IMMATURE GRAN ABSOLUTE AUTO 0.03 K/mm3 (0.00-0.10); IMMATURE GRAN PERCENT AUTO 0 % (0-1); LYMPHOCYTES ABSOLUTE AUTO 0.44 K/mm3 (0.84-5.20); LYMPHOCYTES PERCENT AUTO 6 % (21-46); MONOCYTES ABSOLUTE AUTO 0.47 K/mm3 (0.16-1.47); MONOCYTES PERCENT AUTO 6 % (4-13); Mean Corpuscular HGB 32.3 pg (26.0-34.0); Mean Corpuscular HGB Conc 34.5 g/dL (31.5-36.5); Mean Corpuscular Volume 94 fL (80-100); Mean Platelet Volume 8.9 fL (9.1-12.4); NEUTROPHILS ABSOLUTE AUTO 5.58 K/mm3 (1.96-9.15); NEUTROPHILS PERCENT AUTO 73 % (41-73); Platelet Count 315 K/mm3 (150-400); RDW Coefficient Variation 13.7 % (11.7-14.2); RDW Standard Deviation 47.2 fL (35.1-46.3); Red Blood Cell Count 3.99 M/mm3 (4.30-5.90); White Blood Cell Count 7.67 K/mm3 (4.00-11.30)
[2017-07-04 20:31] LABS: Ethanol (Alcohol), Blood, Med <3 mg/dL; Magnesium, Blood 2.6 mg/dL (1.6-2.4)
[2017-07-04 20:33] LABS: Alanine Aminotransfer (ALT/SGP 39 U/L (12-78); Albumin/Globulin Ratio 1.1 (0.8-1.8); Alk Phos 77 U/L (50-136); Anion Gap 12 mmol/L (6-16); Aspartate Aminotrans (AST/SGOT 54 U/L (12-37); Bilirubin, Total 0.6 mg/dL (0.1-1.0); Blood Urea Nitrogen 13 mg/dL (8-24); Bun/Creatinine Ratio 18.5 (12.0-20.0); CO2, Blood 24 mmol/L (21-32); Calcium, Blood 8.9 mg/dL (8.5-10.1); Chloride, Blood 99 mmol/L (98-108); Globulin, Blood 3.5 g/dL (2.2-4.0); Glomerular Filtration Rate >60 (60-); Glucose, Blood 106 mg/dL (70-99); Potassium, Blood 3.2 mmol/L (3.5-5.5); Sodium, Blood 135 mmol/L (136-145); Total Protein, Blood 7.5 g/dL (6.4-8.2)
[2017-07-04 21:52] LABS: U Amphetamine Screen DETECTED; U Barbituate Screen Not Detected; U Benzodiazapine Screen Not Detected; U Buprenorphine Screen Not Detected; U Cannabinoids Screen DETECTED; U Cocaine Screen Not Detected; U Methadone Screen Not Detected; U Methamphetamine Screen Not Detected; U Opiates Screen Not Detected; U Oxycodone Screen Not Detected; U Phencyclidine Screen Not Detected; U Propoxyphene Screen Not Detected
[2017-07-05 05:25] LABS: BASOPHILS ABSOLUTE AUTO 0.06 K/mm3 (0.00-0.23); BASOPHILS PERCENT AUTO 1 % (0-2); EOSINOPHILS ABSOLUTE AUTO 1.39 K/mm3 (0.00-0.68); EOSINOPHILS PERCENT AUTO 19 % (0-6); Hematocrit 36.3 % (37.0-53.0); Hemoglobin 12.4 g/dL (13.5-17.5); IMMATURE GRAN ABSOLUTE AUTO 0.02 K/mm3 (0.00-0.10); IMMATURE GRAN PERCENT AUTO 0 % (0-1); LYMPHOCYTES ABSOLUTE AUTO 1.03 K/mm3 (0.84-5.20); LYMPHOCYTES PERCENT AUTO 14 % (21-46); MONOCYTES ABSOLUTE AUTO 0.75 K/mm3 (0.16-1.47); MONOCYTES PERCENT AUTO 10 % (4-13); Mean Corpuscular HGB 32.5 pg (26.0-34.0); Mean Corpuscular HGB Conc 34.2 g/dL (31.5-36.5); Mean Corpuscular Volume 95 fL (80-100); Mean Platelet Volume 8.7 fL (9.1-12.4); NEUTROPHILS ABSOLUTE AUTO 4.19 K/mm3 (1.96-9.15); NEUTROPHILS PERCENT AUTO 56 % (41-73); Platelet Count 287 K/mm3 (150-400); RDW Coefficient Variation 13.9 % (11.7-14.2); RDW Standard Deviation 48.3 fL (35.1-46.3); Red Blood Cell Count 3.82 M/mm3 (4.30-5.90); White Blood Cell Count 7.44 K/mm3 (4.00-11.30)
[2017-07-05 05:57] LABS: Alanine Aminotransfer (ALT/SGP 34 U/L (12-78); Albumin, Blood 3.5 g/dL (3.4-5.0); Alk Phos 65 U/L (50-136); Anion Gap 9 mmol/L (6-16); Aspartate Aminotrans (AST/SGOT 40 U/L (12-37); Bilirubin, Total 0.9 mg/dL (0.1-1.0); Blood Urea Nitrogen 13 mg/dL (8-24); Bun/Creatinine Ratio 18.4 (12.0-20.0); CO2, Blood 26 mmol/L (21-32); Calcium, Blood 8.4 mg/dL (8.5-10.1); Chloride, Blood 101 mmol/L (98-108); Creatinine, Blood 0.71 mg/dL (0.60-1.20); Globulin, Blood 3.5 g/dL (2.2-4.0); Glomerular Filtration Rate >60 (60-); Glucose, Blood 94 mg/dL (70-99); Sodium, Blood 136 mmol/L (136-145)
[2017-07-06 05:26] LABS: Anion Gap 8 mmol/L (6-16); Blood Urea Nitrogen 14 mg/dL (8-24); Bun/Creatinine Ratio 17.3 (12.0-20.0); CO2, Blood 28 mmol/L (21-32); Calcium, Blood 8.4 mg/dL (8.5-10.1); Chloride, Blood 104 mmol/L (98-108); Creatinine, Blood 0.81 mg/dL (0.60-1.20); Glomerular Filtration Rate >60 (60-); Glucose, Blood 104 mg/dL (70-99); Potassium, Blood 3.6 mmol/L (3.5-5.5); Sodium, Blood 140 mmol/L (136-145)
== END 2017-07-06 22:15 ==
LOC: ER 18:59 → MEDS 19:00
PROVIDERS: Internal Medicine; Physician Assistant
DX: G40.909 Epilepsy, unspecified, not intractable, without status epilepticus (principal); F20.9 Schizophrenia, unspecified; F10.259 Alcohol dependence with alcohol-induced psychotic disorder, unspecified; F15.10 Other stimulant abuse, uncomplicated; F12.10 Cannabis abuse, uncomplicated; F95.2 Tourette's disorder; J44.9 Chronic obstructive pulmonary disease, unspecified; I10 Essential (primary) hypertension; F32.9 Major depressive disorder, single episode, unspecified; B85.0 Pediculosis due to Pediculus humanus capitis; B85.1 Pediculosis due to Pediculus humanus corporis; E87.6 Hypokalemia; R45.851 Suicidal ideations; Z87.820 Personal history of traumatic brain injury; Z86.19 Personal history of other infectious and parasitic diseases; Z79.899 Other long term (current) drug therapy
CPT/HCPCS: 36415; 70450; 72125; 80048; 80053; 83735; 84425; 84443; 85025; 93005; 93010; 96361; 96365; 96372; 96375; 96376; 99285; G0378; G0480; J1650; J3411; J3480; J7042

== ENCOUNTER 2017-08-20 00:19 | Observation (INO) | payer MEDICARE ==
[~2017-08-20] VITALS: Ht 167.6 cm; Wt 63.5 kg
[2017-08-20 02:33] LABS: BASOPHILS ABSOLUTE AUTO 0.04 K/mm3 (0.00-0.23); BASOPHILS PERCENT AUTO 1 % (0-2); EOSINOPHILS ABSOLUTE AUTO 0.34 K/mm3 (0.00-0.68); EOSINOPHILS PERCENT AUTO 5 % (0-6); IMMATURE GRAN ABSOLUTE AUTO 0.01 K/mm3 (0.00-0.10); IMMATURE GRAN PERCENT AUTO 0 % (0-1); LYMPHOCYTES ABSOLUTE AUTO 1.62 K/mm3 (0.84-5.20); LYMPHOCYTES PERCENT AUTO 24 % (21-46); MONOCYTES ABSOLUTE AUTO 0.69 K/mm3 (0.16-1.47); MONOCYTES PERCENT AUTO 10 % (4-13); Mean Corpuscular HGB 31.7 pg (26.0-34.0); Mean Corpuscular HGB Conc 33.3 g/dL (31.5-36.5); Mean Corpuscular Volume 95 fL (80-100); Mean Platelet Volume 8.7 fL (9.1-12.4); NEUTROPHILS ABSOLUTE AUTO 4.04 K/mm3 (1.96-9.15); NEUTROPHILS PERCENT AUTO 60 % (41-73); Platelet Count 300 K/mm3 (150-400); RDW Coefficient Variation 13.7 % (11.7-14.2); RDW Standard Deviation 48.1 fL (35.1-46.3); Red Blood Cell Count 3.79 M/mm3 (4.30-5.90); White Blood Cell Count 6.74 K/mm3 (4.00-11.30)
[2017-08-20 02:50] LABS: Alanine Aminotransfer (ALT/SGP 26 U/L (12-78); Albumin, Blood 3.5 g/dL (3.4-5.0); Alk Phos 91 U/L (50-136); Anion Gap 5 mmol/L (6-16); Aspartate Aminotrans (AST/SGOT 31 U/L (12-37); Bilirubin, Total 0.2 mg/dL (0.1-1.0); Blood Urea Nitrogen 16 mg/dL (8-24); Bun/Creatinine Ratio 19.9 (12.0-20.0); CO2, Blood 28 mmol/L (21-32); Calcium, Blood 8.4 mg/dL (8.5-10.1); Chloride, Blood 105 mmol/L (98-108); Creatinine, Blood 0.81 mg/dL (0.60-1.20); Ethanol (Alcohol), Blood, Med <3 mg/dL; Globulin, Blood 3.6 g/dL (2.2-4.0); Glomerular Filtration Rate >60 (60-); Glucose, Blood 99 mg/dL (70-99); Potassium, Blood 4.3 mmol/L (3.5-5.5); Salicylate 2.6 mg/dL (2.8-20.0); Sodium, Blood 138 mmol/L (136-145); Thyroxine (T4) 5.5 ug/dL (4.5-12.1); Total Protein, Blood 7.1 g/dL (6.4-8.2); Troponin I <0.015 ng/mL (0.000-0.040)
[2017-08-20 02:51] LABS: U Amphetamine Screen Not Detected; U Barbituate Screen DETECTED; U Benzodiazapine Screen Not Detected; U Buprenorphine Screen Not Detected; U Cannabinoids Screen DETECTED; U Cocaine Screen Not Detected; U Methadone Screen Not Detected; U Methamphetamine Screen Not Detected; U Opiates Screen Not Detected; U Oxycodone Screen Not Detected; U Phencyclidine Screen Not Detected; U Propoxyphene Screen Not Detected
[2017-08-20 02:54] LABS: Acetaminophen, Random <2.0 ug/mL (10.0-30.0)
[2017-08-20 03:22] LABS: Source, Urine Clean Catch
[2017-08-20 03:24] LABS: Bilirubin, Urine Neg (Neg); Blood, Urine Neg (Neg); Glucose Qualitative, Urine Neg (Neg); Ketones, Urine Neg (Neg); Leukocyte Esterase, Urine Neg (Neg); Nitrite, Urine Neg (Neg); Protein, Urine Neg (Neg); Urobilinogen, Urine NORM (Normal)
[2017-08-20 03:25] LABS: Appearance, Urine Clear (Clear); Color, Urine Yellow (P-Yellow)
== END 2017-08-21 12:02 | disposition home or self-care (01) ==
LOC: ER 00:19 → EOR 00:20
PROVIDERS: Emergency Medicine
DX: F32.9 Major depressive disorder, single episode, unspecified (principal); F41.9 Anxiety disorder, unspecified; F17.210 Nicotine dependence, cigarettes, uncomplicated; F20.9 Schizophrenia, unspecified; Z79.899 Other long term (current) drug therapy
CPT/HCPCS: 80053; 81003; 84436; 84443; 84484; 85025; 93005; 93010; 99285; G0378; G0480; Q3014

== ENCOUNTER 2017-09-06 15:06 | Observation (INO) | payer MEDICARE, OTHER ==
[~2017-09-06] VITALS: Ht 167.6 cm; Wt 63.5 kg
[2017-09-06 16:58] LABS: BASOPHILS ABSOLUTE AUTO 0.02 K/mm3 (0.00-0.23); BASOPHILS PERCENT AUTO 0 % (0-2); EOSINOPHILS ABSOLUTE AUTO 0.14 K/mm3 (0.00-0.68); EOSINOPHILS PERCENT AUTO 3 % (0-6); Hematocrit 38.5 % (37.0-53.0); Hemoglobin 12.7 g/dL (13.5-17.5); IMMATURE GRAN ABSOLUTE AUTO 0.02 K/mm3 (0.00-0.10); IMMATURE GRAN PERCENT AUTO 0 % (0-1); LYMPHOCYTES ABSOLUTE AUTO 1.95 K/mm3 (0.84-5.20); LYMPHOCYTES PERCENT AUTO 34 % (21-46); MONOCYTES ABSOLUTE AUTO 0.42 K/mm3 (0.16-1.47); MONOCYTES PERCENT AUTO 7 % (4-13); Mean Corpuscular HGB 30.9 pg (26.0-34.0); Mean Corpuscular Volume 94 fL (80-100); Mean Platelet Volume 8.4 fL (9.1-12.4); NEUTROPHILS ABSOLUTE AUTO 3.13 K/mm3 (1.96-9.15); NEUTROPHILS PERCENT AUTO 55 % (41-73); Platelet Count 364 K/mm3 (150-400); RDW Coefficient Variation 14.7 % (11.7-14.2); RDW Standard Deviation 51.5 fL (35.1-46.3); Red Blood Cell Count 4.11 M/mm3 (4.30-5.90); White Blood Cell Count 5.68 K/mm3 (4.00-11.30)
[2017-09-06 17:15] LABS: U Amphetamine Screen DETECTED; U Barbituate Screen Not Detected; U Benzodiazapine Screen Not Detected; U Buprenorphine Screen Not Detected; U Cannabinoids Screen DETECTED; U Cocaine Screen Not Detected; U Methadone Screen Not Detected; U Methamphetamine Screen DETECTED; U Opiates Screen Not Detected; U Oxycodone Screen Not Detected; U Phencyclidine Screen Not Detected; U Propoxyphene Screen Not Detected
[2017-09-06 17:18] LABS: Alanine Aminotransfer (ALT/SGP 35 U/L (12-78); Albumin, Blood 3.7 g/dL (3.4-5.0); Alk Phos 86 U/L (50-136); Anion Gap 9 mmol/L (6-16); Aspartate Aminotrans (AST/SGOT 45 U/L (12-37); Bilirubin, Total 0.2 mg/dL (0.1-1.0); Blood Urea Nitrogen 12 mg/dL (8-24); CO2, Blood 24 mmol/L (21-32); Calcium, Blood 8.9 mg/dL (8.5-10.1); Chloride, Blood 106 mmol/L (98-108); Creatinine, Blood 0.75 mg/dL (0.60-1.20); Ethanol (Alcohol), Blood, Med 121 mg/dL; Globulin, Blood 3.8 g/dL (2.2-4.0); Glomerular Filtration Rate >60 (60-); Glucose, Blood 89 mg/dL (70-99); Magnesium, Blood 2.5 mg/dL (1.6-2.4); Potassium, Blood 4.2 mmol/L (3.5-5.5); Salicylate 4.8 mg/dL (2.8-20.0); Sodium, Blood 139 mmol/L (136-145); Thyroxine (T4) 7.4 ug/dL (4.5-12.1); Total Protein, Blood 7.5 g/dL (6.4-8.2); Troponin I <0.015 ng/mL (0.000-0.040)
[2017-09-06 17:34] LABS: Acetaminophen, Random <2.0 ug/mL (10.0-30.0)
== END 2017-09-07 14:19 | disposition home or self-care (01) ==
LOC: ER 15:06 → EOR 15:07
PROVIDERS: Emergency Medicine
DX: R45.851 Suicidal ideations (principal); F32.9 Major depressive disorder, single episode, unspecified; F10.129 Alcohol abuse with intoxication, unspecified; F15.129 Other stimulant abuse with intoxication, unspecified; F19.10 Other psychoactive substance abuse, uncomplicated; F17.210 Nicotine dependence, cigarettes, uncomplicated; F20.9 Schizophrenia, unspecified
CPT/HCPCS: 71046; 80053; 83690; 83735; 84436; 84443; 84484; 85025; 93005; 93010; 99285; G0378; G0480; Q3014

== ENCOUNTER 2017-09-18 19:47 | Observation (INO) | payer MEDICARE, OTHER ==
[~2017-09-18] VITALS: Ht 177.8 cm; Wt 68.0 kg
== END 2017-09-19 01:47 | disposition home or self-care (01) ==
LOC: ER 19:47 → EOR 20:46
DX: F10.129 Alcohol abuse with intoxication, unspecified (principal); F17.210 Nicotine dependence, cigarettes, uncomplicated; F20.9 Schizophrenia, unspecified
CPT/HCPCS: 82947; 99285; G0378

== ENCOUNTER 2017-09-19 02:29 | Emergency (ER) | payer MEDICARE, OTHER ==
[~2017-09-19] VITALS: Ht 167.6 cm; Wt 69.8 kg
== END 2017-09-19 03:38 | disposition home or self-care (01) ==
LOC: ER 02:29
DX: R20.2 Paresthesia of skin (principal); F19.10 Other psychoactive substance abuse, uncomplicated; F17.210 Nicotine dependence, cigarettes, uncomplicated; Z91.018 Allergy to other foods
CPT/HCPCS: 82947; 99283

== ENCOUNTER 2017-10-02 19:03 | Observation (INO) | payer MEDICARE, OTHER ==
[~2017-10-02] VITALS: Ht 177.8 cm; Wt 72.6 kg
[2017-10-02 19:37] LABS: BASOPHILS ABSOLUTE AUTO 0.04 K/mm3 (0.00-0.23); BASOPHILS PERCENT AUTO 1 % (0-2); EOSINOPHILS ABSOLUTE AUTO 0.12 K/mm3 (0.00-0.68); EOSINOPHILS PERCENT AUTO 2 % (0-6); Hematocrit 42.3 % (37.0-53.0); Hemoglobin 14.1 g/dL (13.5-17.5); IMMATURE GRAN ABSOLUTE AUTO 0.01 K/mm3 (0.00-0.10); IMMATURE GRAN PERCENT AUTO 0 % (0-1); LYMPHOCYTES ABSOLUTE AUTO 2.26 K/mm3 (0.84-5.20); LYMPHOCYTES PERCENT AUTO 35 % (21-46); MONOCYTES ABSOLUTE AUTO 0.24 K/mm3 (0.16-1.47); MONOCYTES PERCENT AUTO 4 % (4-13); Mean Corpuscular HGB 31.7 pg (26.0-34.0); Mean Corpuscular HGB Conc 33.3 g/dL (31.5-36.5); Mean Corpuscular Volume 95 fL (80-100); Mean Platelet Volume 8.4 fL (9.1-12.4); NEUTROPHILS ABSOLUTE AUTO 3.76 K/mm3 (1.96-9.15); NEUTROPHILS PERCENT AUTO 59 % (41-73); Platelet Count 303 K/mm3 (150-400); RDW Coefficient Variation 15.2 % (11.7-14.2); RDW Standard Deviation 54.3 fL (35.1-46.3); Red Blood Cell Count 4.45 M/mm3 (4.30-5.90); White Blood Cell Count 6.43 K/mm3 (4.00-11.30)
[2017-10-02 19:52] LABS: Alanine Aminotransfer (ALT/SGP 27 U/L (12-78); Albumin, Blood 3.8 g/dL (3.4-5.0); Alk Phos 72 U/L (50-136); Anion Gap 8 mmol/L (6-16); Aspartate Aminotrans (AST/SGOT 41 U/L (12-37); Bilirubin, Total 0.3 mg/dL (0.1-1.0); Blood Urea Nitrogen 7 mg/dL (8-24); Bun/Creatinine Ratio 10.5 (12.0-20.0); CO2, Blood 27 mmol/L (21-32); Calcium, Blood 8.3 mg/dL (8.5-10.1); Chloride, Blood 110 mmol/L (98-108); Creatinine, Blood 0.67 mg/dL (0.60-1.20); Globulin, Blood 3.9 g/dL (2.2-4.0); Glomerular Filtration Rate >60 (60-); Glucose, Blood 96 mg/dL (70-99); Sodium, Blood 145 mmol/L (136-145); Total Protein, Blood 7.7 g/dL (6.4-8.2)
[2017-10-02 20:28] LABS: Salicylate 6.2 mg/dL (2.8-20.0)
[2017-10-02 20:31] LABS: Acetaminophen, Random <2.0 ug/mL (10.0-30.0); Ethanol (Alcohol), Blood, Med 429 mg/dL
[2017-10-03 00:41] LABS: U Amphetamine Screen Not Detected; U Barbituate Screen Not Detected; U Benzodiazapine Screen Not Detected; U Cannabinoids Screen DETECTED; U Cocaine Screen Not Detected; U Methadone Screen Not Detected; U Methamphetamine Screen Not Detected; U Opiates Screen Not Detected; U Phencyclidine Screen Not Detected
[2017-10-03 00:42] LABS: U Buprenorphine Screen Not Detected; U Oxycodone Screen Not Detected; U Propoxyphene Screen Not Detected
[2017-10-03 01:37] LABS: Source, Urine Voided
[2017-10-03 01:40] LABS: Bilirubin, Urine Neg (Neg); Blood, Urine Neg (Neg); Glucose Qualitative, Urine Neg (Neg); Ketones, Urine Neg (Neg); Leukocyte Esterase, Urine Neg (Neg); Nitrite, Urine Neg (Neg); Protein, Urine Neg (Neg); Urobilinogen, Urine NORM (Normal)
[2017-10-03 01:50] LABS: Appearance, Urine Clear (Clear); Color, Urine Pale Yellow (P-Yellow)
== END 2017-10-03 06:09 | disposition home or self-care (01) ==
LOC: ER 19:03 → EOR 19:04
PROVIDERS: Emergency Medicine
DX: G92 Toxic encephalopathy (principal); F10.10 Alcohol abuse, uncomplicated; F20.9 Schizophrenia, unspecified; F17.210 Nicotine dependence, cigarettes, uncomplicated
CPT/HCPCS: 36415; 80053; 81003; 85025; 96360; 96361; 99285-25; G0378; G0480; J7030

== ENCOUNTER 2017-10-09 02:10 | Emergency (ER) | payer MEDICARE, OTHER ==
[~2017-10-09] VITALS: Ht 175.3 cm; Wt 63.5 kg
== END 2017-10-09 03:40 | disposition home or self-care (01) ==
LOC: ER 02:10
DX: F10.20 Alcohol dependence, uncomplicated (principal); F17.210 Nicotine dependence, cigarettes, uncomplicated; Z91.018 Allergy to other foods
CPT/HCPCS: 99284

== ENCOUNTER 2017-10-20 13:18 | Emergency (ER) | payer MEDICARE, OTHER ==
[~2017-10-20] VITALS: Ht 167.6 cm; Wt 70.3 kg
[2017-10-20] MEDS ORDERED: Ultram50 MG PO (14:59)
== END 2017-10-20 15:09 | disposition home or self-care (01) ==
LOC: ER 13:18
DX: S80.11XA Contusion of right lower leg, initial encounter (principal); J44.9 Chronic obstructive pulmonary disease, unspecified; I10 Essential (primary) hypertension; F17.210 Nicotine dependence, cigarettes, uncomplicated; X58.XXXA Exposure to other specified factors, initial encounter
CPT/HCPCS: 93971; 99284-25

== ENCOUNTER 2017-11-01 21:03 | Observation (INO) | payer MEDICARE, OTHER ==
[~2017-11-01] VITALS: Ht 167.6 cm; Wt 63.5 kg
[~2017-11-01 21:03] MED LIST changes: +PHENY100ER; +Ultram50 MG PO
[2017-11-01 21:23] LABS: Hematocrit 37.1 % (37.0-53.0); Hemoglobin 12.4 g/dL (13.5-17.5); Mean Corpuscular HGB 31.8 pg (26.0-34.0); Mean Corpuscular HGB Conc 33.4 g/dL (31.5-36.5); Mean Corpuscular Volume 95 fL (80-100); Mean Platelet Volume 8.3 fL (9.1-12.4); Platelet Count 214 K/mm3 (150-400); RDW Coefficient Variation 15.6 % (11.7-14.2); RDW Standard Deviation 54.4 fL (35.1-46.3); White Blood Cell Count 5.72 K/mm3 (4.00-11.30)
[2017-11-01 21:41] LABS: Anion Gap 9 mmol/L (6-16); Blood Urea Nitrogen 7 mg/dL (8-24); Bun/Creatinine Ratio 8.6 (12.0-20.0); CO2, Blood 29 mmol/L (21-32); Calcium, Blood 8.3 mg/dL (8.5-10.1); Chloride, Blood 102 mmol/L (98-108); Creatinine, Blood 0.81 mg/dL (0.60-1.20); Glomerular Filtration Rate >60 (60-); Glucose, Blood 112 mg/dL (70-99); Potassium, Blood 3.8 mmol/L (3.5-5.5); Sodium, Blood 140 mmol/L (136-145)
[2017-11-01 21:50] LABS: Ethanol (Alcohol), Blood, Med 460 mg/dL
[2017-11-02 00:15] LABS: U Amphetamine Screen Not Detected; U Barbituate Screen Not Detected; U Benzodiazapine Screen Not Detected; U Buprenorphine Screen Not Detected; U Cannabinoids Screen DETECTED; U Cocaine Screen Not Detected; U Methadone Screen Not Detected; U Methamphetamine Screen Not Detected; U Opiates Screen Not Detected; U Oxycodone Screen Not Detected; U Phencyclidine Screen Not Detected; U Propoxyphene Screen Not Detected
== END 2017-11-02 08:27 | disposition home or self-care (01) ==
LOC: ER 21:03 → EOR 21:04
PROVIDERS: Emergency Medicine
DX: F10.129 Alcohol abuse with intoxication, unspecified (principal); J44.9 Chronic obstructive pulmonary disease, unspecified; G40.909 Epilepsy, unspecified, not intractable, without status epilepticus; F20.9 Schizophrenia, unspecified; F17.210 Nicotine dependence, cigarettes, uncomplicated; I10 Essential (primary) hypertension
CPT/HCPCS: 36415; 80048; 85027; 96374; 96375; 99285-25; G0378; G0480; J1200; J1630; J2060

== ENCOUNTER 2017-11-04 03:25 | Inpatient (IN) | payer MEDICARE, OTHER ==
[~2017-11-04] VITALS: Ht 165.1 cm; Wt 57.4 kg
[2017-11-04 03:37] LABS: BASOPHILS ABSOLUTE AUTO 0.04 K/mm3 (0.00-0.23); BASOPHILS PERCENT AUTO 1 % (0-2); EOSINOPHILS ABSOLUTE AUTO 0.06 K/mm3 (0.00-0.68); EOSINOPHILS PERCENT AUTO 1 % (0-6); Hematocrit 41.4 % (37.0-53.0); Hemoglobin 13.4 g/dL (13.5-17.5); IMMATURE GRAN ABSOLUTE AUTO 0.07 K/mm3 (0.00-0.10); IMMATURE GRAN PERCENT AUTO 1 % (0-1); LYMPHOCYTES ABSOLUTE AUTO 2.09 K/mm3 (0.84-5.20); LYMPHOCYTES PERCENT AUTO 28 % (21-46); MONOCYTES ABSOLUTE AUTO 1.04 K/mm3 (0.16-1.47); MONOCYTES PERCENT AUTO 14 % (4-13); Mean Corpuscular HGB 31.7 pg (26.0-34.0); Mean Corpuscular HGB Conc 32.4 g/dL (31.5-36.5); Mean Platelet Volume 8.1 fL (9.1-12.4); NEUTROPHILS ABSOLUTE AUTO 4.27 K/mm3 (1.96-9.15); NEUTROPHILS PERCENT AUTO 57 % (41-73); Platelet Count 216 K/mm3 (150-400); RDW Coefficient Variation 15.2 % (11.7-14.2); RDW Standard Deviation 54.6 fL (35.1-46.3); Red Blood Cell Count 4.23 M/mm3 (4.30-5.90); White Blood Cell Count 7.57 K/mm3 (4.00-11.30)
[2017-11-04 03:38] LABS: Mean Corpuscular Volume 98 fL (80-100)
[2017-11-04 03:40] LABS: Calcium, Ionized (POC) 1.08 mmol/L (1.10-1.46); Chloride (POC) 99 mmol/L (98-108); Creatinine (POC) 0.6 mg/dL (0.8-1.3); Glucose (ISTAT POC) 126 mg/dL (70-99); Hemoglobin (POC) 15.3 g/dL (13.5-17.5); Sodium (POC) 136 mmol/L (135-148); Total CO2 (POC) 17 mmol/L (21-32)
[2017-11-04 03:50] LABS: International Normalized Ratio 0.91; Prothrombin Time Results 9.4 Sec (9.7-11.5)
[2017-11-04 03:56] LABS: Alanine Aminotransfer (ALT/SGP 34 U/L (12-78); Albumin, Blood 4.2 g/dL (3.4-5.0); Alk Phos 89 U/L (50-136); Anion Gap 22 mmol/L (6-16); Aspartate Aminotrans (AST/SGOT 48 U/L (12-37); Bilirubin, Total 0.4 mg/dL (0.1-1.0); Blood Urea Nitrogen 7 mg/dL (8-24); Bun/Creatinine Ratio 11.3 (12.0-20.0); CO2, Blood 16 mmol/L (21-32); Calcium, Blood 8.1 mg/dL (8.5-10.1); Chloride, Blood 99 mmol/L (98-108); Creatinine, Blood 0.62 mg/dL (0.60-1.20); Ethanol (Alcohol), Blood, Med <3 mg/dL; Glomerular Filtration Rate >60 (60-); Glucose, Blood 123 mg/dL (70-99); Potassium, Blood 3.2 mmol/L (3.5-5.5); Sodium, Blood 137 mmol/L (136-145); Total Protein, Blood 8.2 g/dL (6.4-8.2)
[2017-11-04 04:01] LABS: U Amphetamine Screen DETECTED; U Barbituate Screen Not Detected; U Benzodiazapine Screen Not Detected; U Buprenorphine Screen Not Detected; U Cannabinoids Screen DETECTED; U Cocaine Screen Not Detected; U Methadone Screen Not Detected; U Methamphetamine Screen DETECTED; U Opiates Screen Not Detected; U Oxycodone Screen Not Detected; U Phencyclidine Screen Not Detected; U Propoxyphene Screen Not Detected
[2017-11-04 06:41] LABS: CPK Creatine Kinase 558 U/L (39-308); Magnesium, Blood 2.3 mg/dL (1.6-2.4); Phosphorus, Blood 3.8 mg/dL (2.5-4.9)
[2017-11-04 06:52] LABS: Beta-hydroxybutyrate 0.9 mg/dL (0.2-2.8)
[2017-11-04 08:24] LABS: PO2 Arterial 110 mmHg (80-100); pH Blood Arterial 7.48 (7.35-7.45)
[2017-11-04 08:54] LABS: Source, Urine Catheter
[2017-11-04 09:20] LABS: Bilirubin, Urine Neg (Neg); Blood, Urine 4+ (Neg); Glucose Qualitative, Urine 1+ (Neg); Ketones, Urine Neg (Neg); Leukocyte Esterase, Urine Neg (Neg); Nitrite, Urine Neg (Neg); Protein, Urine 2+ (Neg); Specific Gravity, Urine 1.015 (1.003-1.022); Urobilinogen, Urine NORM (Normal); pH, Urine 6.5 (5.0-8.0)
[2017-11-04 09:47] LABS: Appearance, Urine Clear (Clear); Color, Urine Yellow (P-Yellow)
[2017-11-04 09:57] LABS: Bacteria Not Seen /hpf; Red Blood Cells, Urine 0-2 /hpf (0-2); Squamous Epithelial Cells Not Seen /hpf (Few); White Blood Cells, Urine Not Seen /hpf (0-5)
[2017-11-05 03:39] LABS: BASOPHILS ABSOLUTE AUTO 0.02 K/mm3 (0.00-0.23); BASOPHILS PERCENT AUTO 1 % (0-2); EOSINOPHILS ABSOLUTE AUTO 0.05 K/mm3 (0.00-0.68); EOSINOPHILS PERCENT AUTO 1 % (0-6); Hematocrit 32.6 % (37.0-53.0); Hemoglobin 10.8 g/dL (13.5-17.5); IMMATURE GRAN ABSOLUTE AUTO 0.02 K/mm3 (0.00-0.10); IMMATURE GRAN PERCENT AUTO 1 % (0-1); LYMPHOCYTES PERCENT AUTO 17 % (21-46); MONOCYTES ABSOLUTE AUTO 0.51 K/mm3 (0.16-1.47); MONOCYTES PERCENT AUTO 13 % (4-13); Mean Corpuscular HGB 32.1 pg (26.0-34.0); Mean Corpuscular HGB Conc 33.1 g/dL (31.5-36.5); Mean Corpuscular Volume 97 fL (80-100); Mean Platelet Volume 9.3 fL (9.1-12.4); NEUTROPHILS ABSOLUTE AUTO 2.74 K/mm3 (1.96-9.15); NEUTROPHILS PERCENT AUTO 68 % (41-73); Platelet Count 159 K/mm3 (150-400); RDW Coefficient Variation 15.5 % (11.7-14.2); RDW Standard Deviation 55.5 fL (35.1-46.3); Red Blood Cell Count 3.36 M/mm3 (4.30-5.90); White Blood Cell Count 4.04 K/mm3 (4.00-11.30)
[2017-11-05 03:57] LABS: Alanine Aminotransfer (ALT/SGP 21 U/L (12-78); Albumin, Blood 2.6 g/dL (3.4-5.0); Alk Phos 57 U/L (50-136); Anion Gap 8 mmol/L (6-16); Aspartate Aminotrans (AST/SGOT 32 U/L (12-37); Bilirubin, Total 0.5 mg/dL (0.1-1.0); Blood Urea Nitrogen 6 mg/dL (8-24); Bun/Creatinine Ratio 9.8 (12.0-20.0); CO2, Blood 25 mmol/L (21-32); Calcium, Blood 7.7 mg/dL (8.5-10.1); Chloride, Blood 110 mmol/L (98-108); Creatinine, Blood 0.61 mg/dL (0.60-1.20); Glomerular Filtration Rate >60 (60-); Glucose, Blood 99 mg/dL (70-99); Magnesium, Blood 2.3 mg/dL (1.6-2.4); Phosphorus, Blood 2.6 mg/dL (2.5-4.9); Potassium, Blood 3.5 mmol/L (3.5-5.5); Sodium, Blood 143 mmol/L (136-145)
[2017-11-05 04:00] LABS: Albumin/Globulin Ratio 0.8 (0.8-1.8); Globulin, Blood 3.1 g/dL (2.2-4.0); Total Protein, Blood 5.7 g/dL (6.4-8.2)
[2017-11-05 05:18] LABS: PCO2 Arterial 38.4 mmHg (35-45); PO2 Arterial 58.9 mmHg (80-100); pH Blood Arterial 7.46 (7.35-7.45)
[2017-11-06 04:08] LABS: BASOPHILS ABSOLUTE AUTO 0.01 K/mm3 (0.00-0.23); BASOPHILS PERCENT AUTO 0 % (0-2); EOSINOPHILS ABSOLUTE AUTO 0.05 K/mm3 (0.00-0.68); EOSINOPHILS PERCENT AUTO 1 % (0-6); Hematocrit 34.4 % (37.0-53.0); Hemoglobin 11.1 g/dL (13.5-17.5); IMMATURE GRAN ABSOLUTE AUTO 0.02 K/mm3 (0.00-0.10); IMMATURE GRAN PERCENT AUTO 0 % (0-1); LYMPHOCYTES ABSOLUTE AUTO 0.92 K/mm3 (0.84-5.20); LYMPHOCYTES PERCENT AUTO 16 % (21-46); MONOCYTES ABSOLUTE AUTO 0.76 K/mm3 (0.16-1.47); MONOCYTES PERCENT AUTO 14 % (4-13); Mean Corpuscular HGB 31.2 pg (26.0-34.0); Mean Corpuscular HGB Conc 32.3 g/dL (31.5-36.5); Mean Corpuscular Volume 97 fL (80-100); Mean Platelet Volume 9.3 fL (9.1-12.4); NEUTROPHILS ABSOLUTE AUTO 3.87 K/mm3 (1.96-9.15); NEUTROPHILS PERCENT AUTO 69 % (41-73); Platelet Count 168 K/mm3 (150-400); RDW Coefficient Variation 15.8 % (11.7-14.2); RDW Standard Deviation 56.8 fL (35.1-46.3); Red Blood Cell Count 3.56 M/mm3 (4.30-5.90); White Blood Cell Count 5.63 K/mm3 (4.00-11.30)
[2017-11-06 04:26] LABS: Alanine Aminotransfer (ALT/SGP 19 U/L (12-78); Albumin, Blood 2.6 g/dL (3.4-5.0); Albumin/Globulin Ratio 0.7 (0.8-1.8); Alk Phos 57 U/L (50-136); Anion Gap 7 mmol/L (6-16); Aspartate Aminotrans (AST/SGOT 27 U/L (12-37); Bilirubin, Total 0.3 mg/dL (0.1-1.0); Blood Urea Nitrogen 8 mg/dL (8-24); Bun/Creatinine Ratio 13.3 (12.0-20.0); CO2, Blood 27 mmol/L (21-32); Calcium, Blood 7.9 mg/dL (8.5-10.1); Chloride, Blood 108 mmol/L (98-108); Globulin, Blood 3.5 g/dL (2.2-4.0); Glomerular Filtration Rate >60 (60-); Glucose, Blood 107 mg/dL (70-99); Magnesium, Blood 2.3 mg/dL (1.6-2.4); Phosphorus, Blood 3.1 mg/dL (2.5-4.9); Potassium, Blood 3.1 mmol/L (3.5-5.5); Sodium, Blood 142 mmol/L (136-145); Total Protein, Blood 6.1 g/dL (6.4-8.2)
[2017-11-06 04:29] LABS: PCO2 Arterial 36.1 mmHg (35-45)
[2017-11-07 01:26] LABS: BASOPHILS ABSOLUTE AUTO 0.02 K/mm3 (0.00-0.23); BASOPHILS PERCENT AUTO 0 % (0-2); EOSINOPHILS ABSOLUTE AUTO 0.12 K/mm3 (0.00-0.68); EOSINOPHILS PERCENT AUTO 3 % (0-6); IMMATURE GRAN ABSOLUTE AUTO 0.01 K/mm3 (0.00-0.10); IMMATURE GRAN PERCENT AUTO 0 % (0-1); LYMPHOCYTES ABSOLUTE AUTO 0.85 K/mm3 (0.84-5.20); LYMPHOCYTES PERCENT AUTO 18 % (21-46); MONOCYTES ABSOLUTE AUTO 0.52 K/mm3 (0.16-1.47); MONOCYTES PERCENT AUTO 11 % (4-13); Mean Corpuscular HGB 31.7 pg (26.0-34.0); Mean Corpuscular HGB Conc 33.3 g/dL (31.5-36.5); Mean Corpuscular Volume 95 fL (80-100); NEUTROPHILS ABSOLUTE AUTO 3.24 K/mm3 (1.96-9.15); NEUTROPHILS PERCENT AUTO 68 % (41-73); RDW Coefficient Variation 14.9 % (11.7-14.2); RDW Standard Deviation 52.5 fL (35.1-46.3); Red Blood Cell Count 3.79 M/mm3 (4.30-5.90); White Blood Cell Count 4.76 K/mm3 (4.00-11.30)
[2017-11-07 01:28] LABS: Mean Platelet Volume 9.1 fL (9.1-12.4); Platelet Count 186 K/mm3 (150-400)
[2017-11-07 01:40] LABS: Anion Gap 8 mmol/L (6-16); Blood Urea Nitrogen 7 mg/dL (8-24); CO2, Blood 27 mmol/L (21-32); Calcium, Blood 8.3 mg/dL (8.5-10.1); Chloride, Blood 106 mmol/L (98-108); Creatinine, Blood 0.58 mg/dL (0.60-1.20); Glomerular Filtration Rate >60 (60-); Glucose, Blood 95 mg/dL (70-99); Magnesium, Blood 2.1 mg/dL (1.6-2.4); Sodium, Blood 141 mmol/L (136-145)
== END 2017-11-07 16:25 | disposition left against medical advice (07) | DRG 894 ==
LOC: ER 03:25 → ICUW 05:58 → ICUE 05:58
PROVIDERS: Emergency Medicine; Family Medicine; Internal Medicine; Internal Medicine Critical Care Medicine
PROC: 0BH17EZ Insertion of Endotracheal Airway into Trachea, Via Natural or Artificial Opening (ICD-10-PCS; principal; 2017-11-04)
PROC: 5A1945Z Respiratory Ventilation, 24-96 Consecutive Hours (ICD-10-PCS; 2017-11-04)
DX: F10.230 Alcohol dependence with withdrawal, uncomplicated (principal); J96.00 Acute respiratory failure, unspecified whether with hypoxia or hypercapnia; G93.40 Encephalopathy, unspecified; G40.801 Other epilepsy, not intractable, with status epilepticus; E87.2 Acidosis; J44.9 Chronic obstructive pulmonary disease, unspecified; Z87.820 Personal history of traumatic brain injury; F32.9 Major depressive disorder, single episode, unspecified; Z59.0 Homelessness; E87.6 Hypokalemia; I10 Essential (primary) hypertension; F19.10 Other psychoactive substance abuse, uncomplicated
CPT/HCPCS: 31500; 31720; 36415; 36600; 51702; 70450; 71045; 80047; 80048; 80053; 80177; 81001; 82010; 82550; 82803; 82947; 83605; 83735; 84100; 84132; 85014; 85025; 85027; 85610; 87070; 87205; 93005; 93010; 94002; 94003; 94640; 96374; 96375; 96376; 99291-25; 99292; C9113; G0480; J0295; J0330; J0360; J1650; J1953; J2060; J2250; J2405; J3010; J3411; J3475; J3480; J7030; J7042

== ENCOUNTER 2017-12-17 18:47 | Emergency (ER) | payer MEDICARE, OTHER ==
[~2017-12-17] VITALS: Ht 170.2 cm; Wt 74.8 kg
== END 2017-12-17 21:51 | disposition home or self-care (01) ==
LOC: ER 18:47
DX: F10.129 Alcohol abuse with intoxication, unspecified (principal); Y90.8 Blood alcohol level of 240 mg/100 ml or more; J44.9 Chronic obstructive pulmonary disease, unspecified; G40.909 Epilepsy, unspecified, not intractable, without status epilepticus; F20.9 Schizophrenia, unspecified; I10 Essential (primary) hypertension; F17.210 Nicotine dependence, cigarettes, uncomplicated
CPT/HCPCS: 99284; G0480

== ENCOUNTER 2018-03-31 11:19 | Emergency (ER) | payer MEDICARE ==
[~2018-03-31] VITALS: Ht 167.6 cm; Wt 72.6 kg
== END 2018-03-31 12:00 | disposition left against medical advice (07) ==
LOC: EDBD 11:19 → ER 11:19
DX: Z53.21 Procedure and treatment not carried out due to patient leaving prior to being seen by health care provider (principal)

== ENCOUNTER 2018-04-02 07:13 | Inpatient (IN) | payer MEDICARE ==
[~2018-04-02] VITALS: Ht 167.6 cm; Wt 59.1 kg
[2018-04-02 07:47] LABS: BASOPHILS ABSOLUTE AUTO 0.07 K/mm3 (0.00-0.23); BASOPHILS PERCENT AUTO 1 % (0-2); EOSINOPHILS ABSOLUTE AUTO 0.07 K/mm3 (0.00-0.68); EOSINOPHILS PERCENT AUTO 1 % (0-6); Hematocrit 45.9 % (37.0-53.0); Hemoglobin 14.9 g/dL (13.5-17.5); IMMATURE GRAN ABSOLUTE AUTO 0.01 K/mm3 (0.00-0.10); IMMATURE GRAN PERCENT AUTO 0 % (0-1); LYMPHOCYTES ABSOLUTE AUTO 2.06 K/mm3 (0.84-5.20); LYMPHOCYTES PERCENT AUTO 28 % (21-46); MONOCYTES ABSOLUTE AUTO 0.68 K/mm3 (0.16-1.47); MONOCYTES PERCENT AUTO 9 % (4-13); Mean Corpuscular HGB 30.7 pg (26.0-34.0); Mean Corpuscular HGB Conc 32.5 g/dL (31.5-36.5); Mean Corpuscular Volume 95 fL (80-100); Mean Platelet Volume 8.7 fL (9.1-12.4); NEUTROPHILS ABSOLUTE AUTO 4.38 K/mm3 (1.96-9.15); NEUTROPHILS PERCENT AUTO 60 % (41-73); Platelet Count 490 K/mm3 (150-400); RDW Coefficient Variation 12.9 % (11.7-14.2); RDW Standard Deviation 44.2 fL (35.1-46.3); Red Blood Cell Count 4.85 M/mm3 (4.30-5.90); White Blood Cell Count 7.27 K/mm3 (4.00-11.30)
[2018-04-02 07:57] LABS: Alanine Aminotransfer (ALT/SGP 41 U/L (12-78); Albumin, Blood 4.2 g/dL (3.4-5.0); Albumin/Globulin Ratio 1.1 (0.8-1.8); Alk Phos 101 U/L (50-136); Anion Gap 18 mmol/L (6-16); Aspartate Aminotrans (AST/SGOT 63 U/L (12-37); Bilirubin, Total 0.8 mg/dL (0.1-1.0); Blood Urea Nitrogen 14 mg/dL (8-24); Bun/Creatinine Ratio 16.7 (12.0-20.0); CO2, Blood 19 mmol/L (21-32); Calcium, Blood 8.7 mg/dL (8.5-10.1); Chloride, Blood 103 mmol/L (98-108); Creatinine, Blood 0.84 mg/dL (0.60-1.20); Globulin, Blood 3.8 g/dL (2.2-4.0); Glomerular Filtration Rate >60 (60-); Glucose, Blood 87 mg/dL (70-99); Potassium, Blood 3.5 mmol/L (3.5-5.5); Sodium, Blood 140 mmol/L (136-145)
--- NOTE | 2018-04-02 16:19 | NUR ---
1210 PT ADMITTED VIA STRETCHER AND UNRESPONSIVE TO VERBAL, LOUD SOUNDS, AND ONLY SL FLEXION TO NOXIOUS STIMULI. PT IS UNAWARE OF SURROUNDING. SKIN ON HANDS AND FACE CLEANED WITH SOAP AND WATER. PT RANDOMLY BRUSHING HANDS OVER FACE SPONTANIOUSLY. IV BANANA BAG INFUSING AT 200ML FROM ED. PT IS ON RA AND SATS NOTED.
--- NOTE | 2018-04-02 16:22 | NUR ---
1425 PT AWAKENED AND RAMAINS TOTALLY UNABLE TO FOLLOW COMMANDS, ANSWER QUESTIONS, AND ONLY MUMBLING OBSINITIES. PT SETTING UP AND WOULD HAVE FALLEN OUT OF BED IF LEFT ALONE. ANTONIA VEST APPLIED FOR PT SAFETY AND MEDICATED. NO SIGNS OF SEIZURE ACTIVITY NOTED.
--- NOTE | 2018-04-02 19:00 | NUR ---
ASSUMED CARE OF PT FROM YOSELYN CHEEMA. DR DE LEON AT PT'S BEDSIDE. PT IS VERY AGITATED AND DR DE LEON REQUESTS BILATERAL SOFT WRIST RESTRAINTS IN CONJUCTION WITH THE ANTONIA VEST. PT IS CONFUSED AND UNABLE TO ANSWER QUESTIONS. PT CONTINUOUSLY PULLING CORDS/LINES AND TRYING TO GET OUT OF BED. BED ALARM SET AND SIDE RAILS UPX4. PT HAS ABRASIONS ACROSS FACE CONSISTENT WITH HIS FALL THIS AM (PICTURES IN CHART). CIWA MONITORING IN EFFECT. PT CIWA SCORE IS CURRENTLY 20. PT IS ON ROOM AIR WITH O2 SATS IN LOW 90'S, TACHYCARDIC AND HYPERTENSIVE. SEE FULL SHIFT ASSESSMENT.
--- NOTE | 2018-04-02 19:34 | NUR ---
1845 PT AGITATION HAS ERUPTED AND IS OUT OF CONTROL. ORDER OBTAINED FOR PRECEDEX GTT AND WILL TITRATE. PT IS IN FULL BODY AGITATION AND MOVING IN BED W/O PURPOSE AND UNABLE TO VERBALIZE ANY WISHES. NS AT 150 ML CONTINUES TO RUN. VSS NOTED. PT HAS NOT VOIDED.
[2018-04-02 20:29] LABS: Source, Urine Catheter
[2018-04-02 20:39] LABS: Appearance, Urine Clear (Clear); Bilirubin, Urine Neg (Neg); Blood, Urine Neg (Neg); Color, Urine Yellow (P-Yellow); Glucose Qualitative, Urine Neg (Neg); Ketones, Urine 3+ (Neg); Leukocyte Esterase, Urine Neg (Neg); Nitrite, Urine Neg (Neg); Protein, Urine Neg (Neg); Urobilinogen, Urine NORM (Normal)
--- NOTE | 2018-04-02 20:58 | NUR ---
ETOH WITHDRAWAL PT PULLING AT LINES AND HOLDER CATH. PRECEDEX AT 0.7. CALL TO DR MONTAÑO REGARDING WITHDRAWALS. TOLD TO GIVE ATIVAN PER CIWA PROTOCOL NOW, IF ATIVAN INEFFECTIVE GIVE GEODON IM TIMES ONE.
[2018-04-02 21:00] LABS: U Amphetamine Screen DETECTED; U Barbituate Screen Not Detected; U Benzodiazapine Screen DETECTED; U Buprenorphine Screen Not Detected; U Cannabinoids Screen DETECTED; U Cocaine Screen Not Detected; U Methadone Screen Not Detected; U Methamphetamine Screen DETECTED; U Opiates Screen Not Detected; U Oxycodone Screen Not Detected; U Phencyclidine Screen Not Detected; U Propoxyphene Screen Not Detected
--- NOTE | 2018-04-03 00:35 | NUR ---
CIWA PT CONTINUES TO HAVE CIWA SCORE AROUND 20. WHEN PT IS AWAKE HE IS AGITATED AND CONFUSED. PT THRASHES IN BED AND TRIES TO PULL OUT IVS AND HOLDER. PT UNABLE TO ANSWER QUESTIONS. PT MUMBLES AND PERIODICALLY SAYS "HE NEEDS TO GO THAT WAY" AND "GOD FORGIVE ME, I'M NOT PERFECT".
--- NOTE | 2018-04-03 03:00 | NUR ---
CALLED DR PALUMBO, PT CONTINUES TO TRY AND GET OUT OF BED, PULLING ON CORDS/LINES/HOLDER AND REPEATEDLY SAYING "SHIT, FUCK, GODDAMN". ORDER FOR 3 MG Q6 PRN IV PER DR PALUMBO.
[2018-04-03 03:43] LABS: BASOPHILS ABSOLUTE AUTO 0.05 K/mm3 (0.00-0.23); BASOPHILS PERCENT AUTO 0 % (0-2); EOSINOPHILS PERCENT AUTO 0 % (0-6); IMMATURE GRAN ABSOLUTE AUTO 0.06 K/mm3 (0.00-0.10); IMMATURE GRAN PERCENT AUTO 1 % (0-1); LYMPHOCYTES ABSOLUTE AUTO 0.53 K/mm3 (0.84-5.20); LYMPHOCYTES PERCENT AUTO 4 % (21-46); MONOCYTES ABSOLUTE AUTO 0.62 K/mm3 (0.16-1.47); MONOCYTES PERCENT AUTO 5 % (4-13); Mean Corpuscular HGB 31.3 pg (26.0-34.0); Mean Corpuscular HGB Conc 33.3 g/dL (31.5-36.5); Mean Corpuscular Volume 94 fL (80-100); Mean Platelet Volume 8.6 fL (9.1-12.4); NEUTROPHILS PERCENT AUTO 90 % (41-73); Platelet Count 306 K/mm3 (150-400); RDW Coefficient Variation 12.6 % (11.7-14.2); RDW Standard Deviation 43.4 fL (35.1-46.3); Red Blood Cell Count 4.47 M/mm3 (4.30-5.90); White Blood Cell Count 12.46 K/mm3 (4.00-11.30)
[2018-04-03 04:01] LABS: Anion Gap 11 mmol/L (6-16); Blood Urea Nitrogen 9 mg/dL (8-24); CO2, Blood 25 mmol/L (21-32); Calcium, Blood 8.1 mg/dL (8.5-10.1); Chloride, Blood 99 mmol/L (98-108); Creatinine, Blood 0.69 mg/dL (0.60-1.20); Glomerular Filtration Rate >60 (60-); Glucose, Blood 78 mg/dL (70-99); Potassium, Blood 3.3 mmol/L (3.5-5.5); Sodium, Blood 135 mmol/L (136-145)
--- NOTE | 2018-04-03 06:15 | NUR ---
SHIFT SUMMARY PT HAS HAD CIWA SCORE OF 18-20 THROUGHOUT SHIFT AND WAS CONSISTENTLY CONFUSED AND AGITATED. PT CONTINUES TO HAVE GARBLED SPEECH WITH PERIODS OF CLARITY (MOSTLY CUSS WORDS). PT IS UNABLE TO FOLLOW COMMANDS AND CONTINUES TO ATTEMPT TO GET OUT OF BED AND PULL AT HIS LINE/CORDS/HOLDER DESPITE ANTONIA VEST AND BILATERAL WRIST RESTRAINTS. PT'S URINALYSIS SHOWS PT POSITIVE FOR METHAMPHETAMINE, CANNABOIDS, AND BENZOS. PRECEDEX RUNNING AT 0.7 MCG/KG/HR AND NS 150 ML/HR. HOLDER PATENT AND DRAINING. WILL REPORT TO DAYSHIFT NURSE.
--- NOTE | 2018-04-03 09:10 | NUR ---
CARE ASSUMED CARE AND REPORT ASSUMED FROM FAITH CHEEMA. PT SLEEPING AND WHEN AWAKENED, HE BECOMES AGITATED AND SPEAKS INCOMPREHENSIVELY. NO S/S PAIN AT THIS TIME. VSS. NSR 70S. BP STABLE. AFEBRILE. NS INFUSING AT 150 ML/HR PER ORDER. PRECEDEX GTT INFSUING AT 0.7 MCG. BUE RESTRAINED AND PT IN ANTONIA VEST. ABRASIONS ON FACE ARE CLEAN AND DRY AT THIS TIME WITH BACITRACIN OINTMENT. WILL CONTINUE TO MONITOR.
--- NOTE | 2018-04-03 12:11 | NUR ---
REASSESSMENT PT REMAINS SLEEPING. OCCASSIONALLY AWAKENS WHEN BP CUFF INFLATES. REMAINS IN BUE RESTRAINTS AND ANTONIA VEST. VSS. NS INFUSING AT 150 ML/HR PER ORDER. BANANA BAG INFUSING. K+ REPLACEMENT INFUSED. PRECEDEX GTT REMAINS INFUSING AT 0.7. WILL CONTINUE TO MONITOR.
--- NOTE | 2018-04-03 15:30 | NUR ---
REASSESSMENT PT REMAINS SLEEPING. ATTEMPTED TO GIVE PT A BEDBATH AND CHANGE LINENS, AND HE PROCEEDED TO GROAN AND YELL AND ASKED MULTIPLE TIMES THAT STAFF STOP. VSS. PRECEDEX GTT INFUSING AT 0.7 MCG. NS INFUSING AT 150 ML/HR PER ORDER. REMAINS IN BUE RESTRAINTS AND ANTONIA VEST. WILL CONTINUE TO MONITOR.
--- NOTE | 2018-04-03 18:21 | NUR ---
SHIFT SUMMARY PT REMAINED IN CALM AND IN RESTRAINTS AND ANTONIA ENTIRE SHIFT. WHEN AWAKENED, PT IS CONFUSED. ABRASIONS ON FACE REMAIN INTACT WITH MARGINS CLOSED. TMAX 99.4. BP STABLE AND PT IN NSR ENTIRE SHIFT. PT TURNS SELF IN BED WHILE RESTRAINED. 700 ML URINE OUTPUT FROM HOLDER CATHETER. SLEPT MOST OF SHIFT AND WHEN AWAKENED FOR BEDBATH, HE BECAME AGITATED AND ASKED STAFF MULTIPLE TIMES TO STOP. WILL GIVE BEDSIDE, HANDOFF REPORT TO NOC RN.
--- NOTE | 2018-04-03 20:05 | NUR ---
ASSUMED CARE OF PT PT SLEEPING SOUNDLY. PRECEDEX 0.7 MCG/KG/HR AND NS 150 ML/HR RUNNING. HOLDER PATENT AND DRAINING DARK YELLOW URINE. VSS, O2 SATS 93% ON ROOM AIR. SEE FULL SHIFT ASSESSMENT.
--- NOTE | 2018-04-04 01:27 | NUR ---
PT HAS BEEN SLEEPING BUT AROUSABLE FOR ENTIRETY OF SHIFT. CIWA SCORE NOT CALCULATED DUE TO SLEEPING STATE. NO AGITATION, TREMORS, DIAPHORESIS, OR HALLUCINATIONS NOTED.
[2018-04-04 03:39] LABS: BASOPHILS ABSOLUTE AUTO 0.03 K/mm3 (0.00-0.23); BASOPHILS PERCENT AUTO 0 % (0-2); EOSINOPHILS ABSOLUTE AUTO 0.01 K/mm3 (0.00-0.68); EOSINOPHILS PERCENT AUTO 0 % (0-6); Hematocrit 37.4 % (37.0-53.0); Hemoglobin 12.7 g/dL (13.5-17.5); IMMATURE GRAN PERCENT AUTO 1 % (0-1); LYMPHOCYTES ABSOLUTE AUTO 1.05 K/mm3 (0.84-5.20); LYMPHOCYTES PERCENT AUTO 8 % (21-46); MONOCYTES ABSOLUTE AUTO 0.63 K/mm3 (0.16-1.47); MONOCYTES PERCENT AUTO 5 % (4-13); Mean Corpuscular HGB 31.4 pg (26.0-34.0); Mean Corpuscular Volume 93 fL (80-100); NEUTROPHILS ABSOLUTE AUTO 10.85 K/mm3 (1.96-9.15); NEUTROPHILS PERCENT AUTO 86 % (41-73); Platelet Count 246 K/mm3 (150-400); RDW Coefficient Variation 12.6 % (11.7-14.2); RDW Standard Deviation 43.1 fL (35.1-46.3); Red Blood Cell Count 4.04 M/mm3 (4.30-5.90); White Blood Cell Count 12.67 K/mm3 (4.00-11.30)
[2018-04-04 03:54] LABS: Albumin, Blood 2.4 g/dL (3.4-5.0); Anion Gap 7 mmol/L (6-16); Blood Urea Nitrogen 8 mg/dL (8-24); Bun/Creatinine Ratio 10.8 (12.0-20.0); CO2, Blood 24 mmol/L (21-32); Calcium, Blood 7.7 mg/dL (8.5-10.1); Chloride, Blood 108 mmol/L (98-108); Creatinine, Blood 0.74 mg/dL (0.60-1.20); Glomerular Filtration Rate >60 (60-); Glucose, Blood 100 mg/dL (70-99); Magnesium, Blood 1.9 mg/dL (1.6-2.4); Phosphorus, Blood 2.1 mg/dL (2.5-4.9); Potassium, Blood 3.1 mmol/L (3.5-5.5); Sodium, Blood 139 mmol/L (136-145)
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
--- NOTE | 2018-04-04 09:13 | NUR ---
CARE ASSUMED CARE AND REPORT ASSUMED FROM FAITH CHEEMA. PRECEDEX GTT TURNED OF AT 0800. PT NOW SITTING UP IN BED, TALKING TO HIMSELF. DIET ADVANCED AND PT NOW EATING BREAKAST. NS INFUSING AT 150 ML/HR PER ORDER. BANANA BAG INFUSING. POTASSIUM PHOSPHATE REPLACEMENT INFUSING. VSS. REMAINS IN ANTONIA VEST. WILL CONTINUE TO MONITOR.
--- NOTE | 2018-04-04 11:42 | NUR ---
REASSESSMENT PRECEDEX GTT TURNED OFF FOR FEW HOURS BUT PT BECAME RESTLESS, PULLING AND PICKING AT LINES AND TUBES AND HALLUCINATING. HAD MULTIPLE INCONTINENT BOWEL MOVEMENTS AND HAD LINENS CHANGED AND CHAI CARE MULTIPLE TIMES. BANANA BAG INFUSING. PRECEDEX GTT RESTARTED AT 0.7 MCG AND ATIVAN 2 MG IVP GIVEN AT 1030. PT REMAINS HAVING HALLUCINATIONS AND TALKING TO HIMSELF. BUE RESTRAINED AND PT IN ANTONIA VEST. WILL CONTINUE TO MONITOR.
--- NOTE | 2018-04-04 13:54 | NUR ---
1300: CARE ASSUMED, PT SLEEPING AT THIS TIME, SNORING LIGHTLY, VSS. 1400: PT AWAKE, LYING IN BED, FAIRLY CALM AT THIS TIME BUT CONTINUES TO TALK NONSENSE. TV TURNED ON PER PT REQUEST, PT WATCHING QUIETLY, WATER GIVEN.
--- NOTE | 2018-04-04 14:54 | NUR ---
1430: DR. DE LEON AT BEDSIDE TO ASSESS. NO NEW ORDERS AT THIS TIME. 1455: PT BECOMING MORE AGITATED AND RESTLESS, HALLUCINATING, UNABLE TO CALM WITH REORIENTATION AND REASSURANCE. ATIVAN 2MG ADMINISTERED FOR CIWA SCORE 17.
--- NOTE | 2018-04-04 15:22 | NUR ---
1520: ATIVAN APPEARS TO HAVE NO EFFECT OF PT, PT REMAINS RESTLESS, AGITATED, CONFUSED, CURSING, PULLING AT SHEETS, HALLUCINATING. HALDOL ADMINISTERED PER ORDERS FOR CIWA 19. WILL CONTINUE TO MONITOR.
--- NOTE | 2018-04-04 16:08 | NUR ---
1600: PT SLEEPING AFTER HALDOL, RR 28/MIN EVEN AND UNLABORED, SPO2 96% RA, HR 58, BP 119/85. PT WOKEN FOR ASSESSMENT, QUICKLY FALLS BACK ASLEEP. NEURO STATUS UNCHANGED.
--- NOTE | 2018-04-04 18:35 | NUR ---
183: PT ATE 20% OF DINNER WITHOUT DIFFICULTY, THEN STATED HE WAS FINISHED. PT RESTLESS, THRASHING, REPOSITIONED IN BED AND RESTRAINTS REAPPLIED FOR SAFETY. PT LYING DOWN, QUICKLY FELL ASLEEP, VSS, PT NOW RESTING QUIETLY IN BED. REPORT TO ONCOMING SHIFT.
[2018-04-05 04:25] LABS: BASOPHILS ABSOLUTE AUTO 0.01 K/mm3 (0.00-0.23); BASOPHILS PERCENT AUTO 0 % (0-2); EOSINOPHILS ABSOLUTE AUTO 0.11 K/mm3 (0.00-0.68); EOSINOPHILS PERCENT AUTO 1 % (0-6); Hematocrit 34.8 % (37.0-53.0); Hemoglobin 11.6 g/dL (13.5-17.5); IMMATURE GRAN ABSOLUTE AUTO 0.03 K/mm3 (0.00-0.10); IMMATURE GRAN PERCENT AUTO 0 % (0-1); LYMPHOCYTES ABSOLUTE AUTO 0.85 K/mm3 (0.84-5.20); LYMPHOCYTES PERCENT AUTO 10 % (21-46); MONOCYTES PERCENT AUTO 5 % (4-13); Mean Corpuscular HGB 31.3 pg (26.0-34.0); Mean Corpuscular HGB Conc 33.3 g/dL (31.5-36.5); Mean Corpuscular Volume 94 fL (80-100); Mean Platelet Volume 8.8 fL (9.1-12.4); NEUTROPHILS ABSOLUTE AUTO 7.32 K/mm3 (1.96-9.15); NEUTROPHILS PERCENT AUTO 84 % (41-73); Platelet Count 209 K/mm3 (150-400); RDW Coefficient Variation 12.7 % (11.7-14.2); Red Blood Cell Count 3.71 M/mm3 (4.30-5.90); White Blood Cell Count 8.72 K/mm3 (4.00-11.30)
[2018-04-05 04:39] LABS: Albumin, Blood 2.4 g/dL (3.4-5.0); Anion Gap 7 mmol/L (6-16); Blood Urea Nitrogen 10 mg/dL (8-24); Bun/Creatinine Ratio 14.9 (12.0-20.0); CO2, Blood 24 mmol/L (21-32); Calcium, Blood 7.9 mg/dL (8.5-10.1); Chloride, Blood 109 mmol/L (98-108); Creatinine, Blood 0.67 mg/dL (0.60-1.20); Glomerular Filtration Rate >60 (60-); Glucose, Blood 120 mg/dL (70-99); Magnesium, Blood 1.9 mg/dL (1.6-2.4); Phosphorus, Blood 2.7 mg/dL (2.5-4.9); Potassium, Blood 3.1 mmol/L (3.5-5.5); Sodium, Blood 140 mmol/L (136-145)
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
--- NOTE | 2018-04-05 08:47 | NUR ---
0730: CARE ASSUMED, ASSESSMENT COMPLETED. PT AWAKE, ALERT AND ORIENTED X3, UNSURE OF DATE. VSS, ATTENDS ON, HOLDER PATENT AND DRAINING. NS 150ML/HR, PRECEDEX 0.6MCG/KG/HR. PT PLEASANT AND COOPERATIVE THIS MORNING, REPOSITIONING SELF IN BED, SCDS ON BLE'S. RESTRAINTS DC'D AT THIS TIME, PT IS ALERT AND COOPERATIVE. 0830: PT SITTING UP IN BED EATING BREAKFAST AND WATCHING TV, REMAINS COOPERATIVE AND PLEASANT, DENIES NEEDS. VSS, PRECEDEX DECREASED TO 0.4MCG/KG/HR. WILL CONTINUE TO MONITOR.
--- NOTE | 2018-04-05 11:12 | NUR ---
1000: PRECEDEX OFF AT THIS TIME, PT REMAINS COOPERATIVE AND APPROPRIATE. UP TO BR FOR BM, GAIT SLIGHTLY UNSTEADY, SBA REQUIRED. SCDS OFF FOR BREAK. 1100: PT AMBULATED TO SHOWER WITH SBA, ASSISTED WITH SHOWERING AND THEN AMBULATED BACK TO BED, GAIT REAMAINS UNSTEADY. GOWN AND LINENS CHANGED, SCD'S PUT BACK ON. VSS, PRECEDEX REMAINS OFF, PT APPROPRIATE, WATCHING TV AT THIS TIME.
--- NOTE | 2018-04-05 11:41 | NUR ---
1140: DR. DE LEON CALLED, UPDATED ON PATIENT'S CONDITION, NO NEW ORDERS AT THIS TIME. PT SITTING IN BED WATCHING TV, DENIES NEEDS. PRECEDEX REMAINS OFF.
--- NOTE | 2018-04-05 12:42 | NUR ---
1200: DR. DEMPSEY AT BEDSIDE TO ASSESS PT, DISCUSSED ALCOHOL REHAB WITH PT, PT RECEPTIVE. NEW ORDERS RECEIVED, PT MEDICAL STATUS. PT SITTING UP IN BED TO EAT LUNCH AT THIS TIME, DENIES C/O. VSS, PRECEDEX REMAINS OFF.
--- NOTE | 2018-04-05 13:34 | NUR ---
1215: PT C/O PAIN TO 18G IV RIGHT AC, ATTEMPTED TO FLUSH WITH CONTINUED C/O PAIN, SITE LEAKING. IV DC'D WITH TIP INTACT, PRESSURE DRESSING APPLIED. 1245: LABS DRAWN. 1300: XRAY COMPLETED. 1315: HOLDER DC'D WITH TIP INTACT, ATTENDS ON, URINAL GIVEN TO PT. PT SITTING IN BED WATCHING TV, DENIES NEEDS.
--- NOTE | 2018-04-05 14:25 | NUR ---
1415: PT UP TO TOILET FOR VOID AND STOOL, GAIT REMAINS UNSTEADY, ASSISTED BACK TO BED WITHOUT DIFFICULTY. 1430: PT TO ROOM 337 VIA WC, REPORT TO RECEIVING NURSE.
--- NOTE | 2018-04-05 18:18 | NUR ---
SUMMARY PT SITTING UP IN BED EATING HIS DINNER, PT WAS TRANSFERRED UP FROM ICU, PT IS ALERT AND ORIENTED, UNSURE OF THE DATE, PT IS ALSO FORGETFUL, BED ALARM ON FOR SAFETY, CARE MANAGEMENT HAS BEEN IN TO SEE THE PT HE IS HOMELESS, NO ACUTE CHANGES, WILL CONT TO MONITOR
--- NOTE | 2018-04-06 04:35 | NUR ---
SHIFT SUMMARY PT HAD SOME INCREASED ANXIETY AT BEGINNING OF SHIFT. PT WAS TX PER EMAR. PT RESPONDED WELL TO TX. PT HAS BEEN RELAXED. PT HAS BEEN SLEEPING FOR MOST OF SHIFT. PT HAD NO ACUTE ISSUES NOTED. PT IS CURRENTLY SLEEPING AND BREATHING EASY. CALL LIGHT IN REACH.
[2018-04-06 08:20] LABS: BASOPHILS ABSOLUTE AUTO 0.02 K/mm3 (0.00-0.23); BASOPHILS PERCENT AUTO 0 % (0-2); EOSINOPHILS ABSOLUTE AUTO 0.19 K/mm3 (0.00-0.68); EOSINOPHILS PERCENT AUTO 2 % (0-6); Hematocrit 33.8 % (37.0-53.0); Hemoglobin 11.3 g/dL (13.5-17.5); IMMATURE GRAN ABSOLUTE AUTO 0.03 K/mm3 (0.00-0.10); IMMATURE GRAN PERCENT AUTO 0 % (0-1); LYMPHOCYTES ABSOLUTE AUTO 0.98 K/mm3 (0.84-5.20); LYMPHOCYTES PERCENT AUTO 12 % (21-46); MONOCYTES ABSOLUTE AUTO 0.52 K/mm3 (0.16-1.47); MONOCYTES PERCENT AUTO 7 % (4-13); Mean Corpuscular HGB 31.7 pg (26.0-34.0); Mean Corpuscular HGB Conc 33.4 g/dL (31.5-36.5); Mean Corpuscular Volume 95 fL (80-100); NEUTROPHILS ABSOLUTE AUTO 6.16 K/mm3 (1.96-9.15); NEUTROPHILS PERCENT AUTO 78 % (41-73); Platelet Count 295 K/mm3 (150-400); RDW Coefficient Variation 12.7 % (11.7-14.2); RDW Standard Deviation 44.3 fL (35.1-46.3); Red Blood Cell Count 3.57 M/mm3 (4.30-5.90)
[2018-04-06 08:40] LABS: Alanine Aminotransfer (ALT/SGP 34 U/L (12-78); Albumin, Blood 2.5 g/dL (3.4-5.0); Albumin/Globulin Ratio 0.7 (0.8-1.8); Alk Phos 64 U/L (50-136); Anion Gap 6 mmol/L (6-16); Aspartate Aminotrans (AST/SGOT 39 U/L (12-37); Bilirubin, Total 0.3 mg/dL (0.1-1.0); Blood Urea Nitrogen 8 mg/dL (8-24); Bun/Creatinine Ratio 10.8 (12.0-20.0); CO2, Blood 27 mmol/L (21-32); Calcium, Blood 7.9 mg/dL (8.5-10.1); Chloride, Blood 104 mmol/L (98-108); Creatinine, Blood 0.74 mg/dL (0.60-1.20); Globulin, Blood 3.8 g/dL (2.2-4.0); Glomerular Filtration Rate >60 (60-); Glucose, Blood 94 mg/dL (70-99); Potassium, Blood 3.3 mmol/L (3.5-5.5); Sodium, Blood 137 mmol/L (136-145); Total Protein, Blood 6.3 g/dL (6.4-8.2)
--- NOTE | 2018-04-06 10:08 | NUR ---
RICHARD PT RECIEVED A PHONE CALL FROM HIS PAYEE DAVIS, PT APPEARED TEARFUL AND ANXIOUS AFTER THE CALL, MED PT PER EMAR, NOTIFIED [employer] BREAKER AND GAVE HER THE PHONE NUMBER OF THE PAYEE [phone]
--- NOTE | 2018-04-06 10:47 | NUR ---
SEIZURE PT HAD A ABSENT TYPE SEIZURE WITNESSED BY THE LEAD PRINCIPAL TECHNICAL ARCHITECT, PT ASSISTED BACK TO BED, MEDICATED WITH 2 MG ATIVAN, DR DEMPSEY NOTIFIED
--- NOTE | 2018-04-06 17:48 | NUR ---
SUMMARY PT SITTING UP IN BED WATCHING TV, PT HAS BEEN PLEASANT AND COOPERATIVE WITH CARE BUT REMAINS VERY FORGETFUL, PT TALKING ABOUT LEAVING THE HOSPITAL VERY OFTEN, PT HAD PULLED HIS IV OUT EARLIER AND A NEW ONE HAS BEEN PLACED, PT'S PAYEE HAS BROUGHT HIM SOME SHOES, CLOTHES, AND HIS PAYCHECK, ALL ARE IN A PAPER BAG WITH HIS NAME AND ROOM NUMBER ON IT, VSS, NO ACUTE CHANGES, WILL CONT TO MONITOR
[2018-04-07 05:49] LABS: Albumin, Blood 2.9 g/dL (3.4-5.0); Anion Gap 8 mmol/L (6-16); Blood Urea Nitrogen 11 mg/dL (8-24); Bun/Creatinine Ratio 14.3 (12.0-20.0); CO2, Blood 26 mmol/L (21-32); Calcium, Blood 8.6 mg/dL (8.5-10.1); Chloride, Blood 102 mmol/L (98-108); Creatinine, Blood 0.77 mg/dL (0.60-1.20); Glomerular Filtration Rate >60 (60-); Glucose, Blood 106 mg/dL (70-99); Phosphorus, Blood 3.1 mg/dL (2.5-4.9); Potassium, Blood 3.8 mmol/L (3.5-5.5); Sodium, Blood 136 mmol/L (136-145)
--- NOTE | 2018-04-07 08:13 | NUR ---
Rn summary: Patient is alert and oriented to being in the hospital but forgetful. He doesnt know how he got here or what happened. He will tell you the same story over and over. Pt has scrapes to his face from a fall prior to admit. He has been SBA to BR and does well. Pt receiving atibiotics and has tolerated them well. Pt rested well most of the shift. He denies pain and hopes to be DC'd today. His clothes and check are in a paper bag in the office across from room 362 per yesterdays day shift nurse. Pt did shower this am. CIWA was 0 this shift. Call light in reach. REport to day shift RN.
[2018-04-07] MEDS ORDERED: AMLO5 PO (13:41)
[2018-04-07] MEDS ORDERED: LEVE500 PO (13:42)
[2018-04-07] MEDS ORDERED: Augmentin 875-1 EACH PO (13:43)
--- NOTE | 2018-04-07 14:07 | NUR ---
PATIENT DISCHARGE THE PATIENT WAS DISCHARGED OUT OF THE HOSPITAL ON HIS OWN. 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 THE PATIENT LEFT THE HOSPITAL WITHOUT CONCERN OR COMPLAINT.
== END 2018-04-07 14:00 | disposition home or self-care (01) | DRG 896 ==
LOC: ER 07:13 → ICUW 09:47 → ICUE 09:47 → MEDS 04-05 14:36 → EDBD 04-07 14:00 → MEDS 04-07 14:00
PROVIDERS: Emergency Medicine; Internal Medicine; ADMIT Internal Medicine
DX: F10.239 Alcohol dependence with withdrawal, unspecified (principal); J18.9 Pneumonia, unspecified organism; E87.1 Hypo-osmolality and hyponatremia; F20.9 Schizophrenia, unspecified; Z86.14 Personal history of Methicillin resistant Staphylococcus aureus infection; R48.0 Dyslexia and alexia; F95.2 Tourette's disorder; F17.210 Nicotine dependence, cigarettes, uncomplicated; G40.909 Epilepsy, unspecified, not intractable, without status epilepticus; J44.9 Chronic obstructive pulmonary disease, unspecified; Z87.820 Personal history of traumatic brain injury; I10 Essential (primary) hypertension; D69.6 Thrombocytopenia, unspecified; F10.20 Alcohol dependence, uncomplicated; W19.XXXA Unspecified fall, initial encounter; Y93.01 Activity, walking, marching and hiking; Y92.512 Supermarket, store or market as the place of occurrence of the external cause; S00.81XA Abrasion of other part of head, initial encounter; E87.6 Hypokalemia; E83.39 Other disorders of phosphorus metabolism; Y90.0 Blood alcohol level of less than 20 mg/100 ml; F17.200 Nicotine dependence, unspecified, uncomplicated
CPT/HCPCS: 36415; 51702; 70450; 71046; 72125; 80048; 80053; 80069; 80177; 81003; 83735; 84100; 84145; 85025; 93005; 93010; 94760; 96365; 96375; 99285-25; G0480; J1630; J1953; J2060; J2543; J3411; J3475; J3480; J3486; J7030; J7042; J7060

== ENCOUNTER 2018-04-10 19:04 | Emergency (ER) | payer MEDICARE ==
[~2018-04-10] VITALS: Ht 165.1 cm; Wt 65.8 kg
[~2018-04-10 19:04] MED LIST changes: +AMLO5 PO; +Augmentin 875-1 EACH PO
[2018-04-10 22:30] LABS: Calcium, Ionized (POC) 1.14 mmol/L (1.10-1.46); Chloride (POC) 99 mmol/L (98-108); Creatinine (POC) 0.6 mg/dL (0.8-1.3); Glucose (ISTAT POC) 112 mg/dL (70-99); Hemoglobin (POC) 15.6 g/dL (13.5-17.5); Potassium (POC) 3.9 mmol/L (3.5-5.5); Sodium (POC) 138 mmol/L (135-148); Total CO2 (POC) 27 mmol/L (21-32)
== END 2018-04-10 22:32 | disposition home or self-care (01) ==
LOC: EDBD 19:04 → ER 19:04
PROVIDERS: Emergency Medicine
DX: F10.129 Alcohol abuse with intoxication, unspecified (principal); Z79.899 Other long term (current) drug therapy; F20.9 Schizophrenia, unspecified; F17.210 Nicotine dependence, cigarettes, uncomplicated; Z88.8 Allergy status to other drugs, medicaments and biological substances
CPT/HCPCS: 80047; 82947; 85014; 99284

== ENCOUNTER 2018-05-14 16:54 | Emergency (ER) | payer MEDICARE ==
[~2018-05-14] VITALS: Ht 175.3 cm; Wt 72.6 kg
[2018-05-14 18:10] LABS: U Amphetamine Screen Not Detected; U Barbituate Screen Not Detected; U Benzodiazapine Screen Not Detected; U Buprenorphine Screen Not Detected; U Cannabinoids Screen DETECTED; U Cocaine Screen Not Detected; U Methadone Screen Not Detected; U Methamphetamine Screen Not Detected; U Opiates Screen DETECTED; U Oxycodone Screen Not Detected; U Phencyclidine Screen Not Detected; U Propoxyphene Screen Not Detected
[2018-05-14 18:14] LABS: Ethanol (Alcohol), Blood, Med 296 mg/dL; Troponin I <0.015 ng/mL (0.000-0.040)
[2018-05-14 18:30] LABS: Calcium, Ionized (POC) 1.02 mmol/L (1.10-1.46); Chloride (POC) 108 mmol/L (98-108); Creatinine (POC) 0.8 mg/dL (0.8-1.3); Glucose (ISTAT POC) 110 mg/dL (70-99); Hemoglobin (POC) 12.6 g/dL (13.5-17.5); Potassium (POC) 3.5 mmol/L (3.5-5.5); Sodium (POC) 145 mmol/L (135-148); Total CO2 (POC) 25 mmol/L (21-32)
== END 2018-05-14 22:06 | disposition home or self-care (01) ==
LOC: ER 16:54
PROVIDERS: Emergency Medicine
DX: R07.9 Chest pain, unspecified (principal); F10.10 Alcohol abuse, uncomplicated; Y90.8 Blood alcohol level of 240 mg/100 ml or more; Z88.8 Allergy status to other drugs, medicaments and biological substances; F17.210 Nicotine dependence, cigarettes, uncomplicated
CPT/HCPCS: 36415; 71046; 80047; 84484; 85014; 93005; 93010; 96372; 99285-25; G0480; J1885

== ENCOUNTER 2018-06-25 19:50 | Emergency (ER) | payer MEDICARE | END 2018-06-25 21:48 | disposition left against medical advice (07) | LOC: ER 19:50 | DX: Z53.21 Procedure and treatment not carried out due to patient leaving prior to being seen by health care provider (principal) ==

== ENCOUNTER 2018-07-02 11:11 | Emergency (ER) | payer MEDICARE ==
[~2018-07-02] VITALS: Ht 172.7 cm; Wt 68.0 kg
[2018-07-02 11:58] LABS: BASOPHILS ABSOLUTE AUTO 0.04 K/mm3 (0.00-0.23); BASOPHILS PERCENT AUTO 1 % (0-2); EOSINOPHILS ABSOLUTE AUTO 0.09 K/mm3 (0.00-0.68); EOSINOPHILS PERCENT AUTO 2 % (0-6); Hematocrit 43.5 % (37.0-53.0); Hemoglobin 14.2 g/dL (13.5-17.5); IMMATURE GRAN ABSOLUTE AUTO 0.01 K/mm3 (0.00-0.10); IMMATURE GRAN PERCENT AUTO 0 % (0-1); LYMPHOCYTES ABSOLUTE AUTO 1.95 K/mm3 (0.84-5.20); LYMPHOCYTES PERCENT AUTO 34 % (21-46); MONOCYTES PERCENT AUTO 10 % (4-13); Mean Corpuscular HGB 31.1 pg (26.0-34.0); Mean Corpuscular HGB Conc 32.6 g/dL (31.5-36.5); Mean Corpuscular Volume 95 fL (80-100); NEUTROPHILS ABSOLUTE AUTO 3.13 K/mm3 (1.96-9.15); NEUTROPHILS PERCENT AUTO 54 % (41-73); Platelet Count 310 K/mm3 (150-400); RDW Coefficient Variation 12.9 % (11.7-14.2); RDW Standard Deviation 45.4 fL (35.1-46.3); Red Blood Cell Count 4.57 M/mm3 (4.30-5.90); White Blood Cell Count 5.82 K/mm3 (4.00-11.30)
[2018-07-02 12:22] LABS: Alanine Aminotransfer (ALT/SGP 23 U/L (12-78); Albumin, Blood 3.8 g/dL (3.4-5.0); Alk Phos 75 U/L (50-136); Anion Gap 5 mmol/L (6-16); Aspartate Aminotrans (AST/SGOT 16 U/L (12-37); Bilirubin, Total 0.6 mg/dL (0.1-1.0); Blood Urea Nitrogen 11 mg/dL (8-24); Bun/Creatinine Ratio 16.2 (12.0-20.0); CO2, Blood 30 mmol/L (21-32); Calcium, Blood 8.7 mg/dL (8.5-10.1); Chloride, Blood 104 mmol/L (98-108); Creatinine, Blood 0.68 mg/dL (0.60-1.20); Dilantin (Phenytoin), Total <0.4 ug/mL (10.0-20.0); Ethanol (Alcohol), Blood, Med <3 mg/dL; Globulin, Blood 3.7 g/dL (2.2-4.0); Glomerular Filtration Rate >60 (60-); Glucose, Blood 72 mg/dL (70-99); Sodium, Blood 139 mmol/L (136-145); Total Protein, Blood 7.5 g/dL (6.4-8.2)
== END 2018-07-02 13:17 | disposition left against medical advice (07) ==
LOC: ER 11:11
PROVIDERS: Physician Assistant
DX: Z53.21 Procedure and treatment not carried out due to patient leaving prior to being seen by health care provider (principal)
CPT/HCPCS: 36415; 80053; 80185; 85025; 93005; 93010; 99282-25; G0480

== ENCOUNTER 2018-08-18 21:03 | Emergency (ER) | payer MEDICARE ==
[~2018-08-18] VITALS: Ht 170.2 cm; Wt 71.2 kg
== END 2018-08-18 21:48 | disposition home or self-care (01) ==
LOC: ER 21:03
DX: R55 Syncope and collapse (principal); F10.129 Alcohol abuse with intoxication, unspecified; F17.210 Nicotine dependence, cigarettes, uncomplicated
CPT/HCPCS: 93005; 93010; 99284-25

== ENCOUNTER 2018-08-26 19:05 | Observation (INO) | payer MEDICARE ==
[~2018-08-26] VITALS: Ht 172.7 cm; Wt 73.5 kg
[2018-08-26 19:35] LABS: Source, Urine Clean Catch
[2018-08-26 19:38] LABS: BASOPHILS ABSOLUTE AUTO 0.03 K/mm3 (0.00-0.23); BASOPHILS PERCENT AUTO 1 % (0-2); EOSINOPHILS ABSOLUTE AUTO 0.13 K/mm3 (0.00-0.68); EOSINOPHILS PERCENT AUTO 3 % (0-6); Hemoglobin 13.2 g/dL (13.5-17.5); IMMATURE GRAN ABSOLUTE AUTO 0.02 K/mm3 (0.00-0.10); IMMATURE GRAN PERCENT AUTO 0 % (0-1); LYMPHOCYTES PERCENT AUTO 46 % (21-46); MONOCYTES ABSOLUTE AUTO 0.37 K/mm3 (0.16-1.47); MONOCYTES PERCENT AUTO 8 % (4-13); Mean Corpuscular HGB 31.4 pg (26.0-34.0); Mean Corpuscular HGB Conc 33.8 g/dL (31.5-36.5); Mean Corpuscular Volume 93 fL (80-100); Mean Platelet Volume 8.4 fL (9.1-12.4); NEUTROPHILS ABSOLUTE AUTO 2.06 K/mm3 (1.96-9.15); NEUTROPHILS PERCENT AUTO 43 % (41-73); Platelet Count 316 K/mm3 (150-400); White Blood Cell Count 4.81 K/mm3 (4.00-11.30)
[2018-08-26 19:53] LABS: Bilirubin, Urine Neg (Neg); Blood, Urine Neg (Neg); Glucose Qualitative, Urine Neg (Neg); Ketones, Urine Neg (Neg); Leukocyte Esterase, Urine Neg (Neg); Nitrite, Urine Neg (Neg); Protein, Urine Neg (Neg); Specific Gravity, Urine 1.015 (1.003-1.022); Urobilinogen, Urine NORM (Normal)
[2018-08-26 19:57] LABS: Appearance, Urine Clear (Clear); Color, Urine Yellow (P-Yellow)
[2018-08-26 20:04] LABS: U Amphetamine Screen Not Detected; U Barbituate Screen Not Detected; U Benzodiazapine Screen Not Detected; U Buprenorphine Screen Not Detected; U Cannabinoids Screen DETECTED; U Cocaine Screen Not Detected; U Methadone Screen Not Detected; U Methamphetamine Screen Not Detected; U Opiates Screen Not Detected; U Oxycodone Screen Not Detected; U Phencyclidine Screen Not Detected
[2018-08-26 20:05] LABS: U Propoxyphene Screen Not Detected
[2018-08-26 20:11] LABS: Alanine Aminotransfer (ALT/SGP 29 U/L (12-78); Albumin, Blood 3.6 g/dL (3.4-5.0); Albumin/Globulin Ratio 1.1 (0.8-1.8); Alk Phos 94 U/L (50-136); Anion Gap 6 mmol/L (6-16); Aspartate Aminotrans (AST/SGOT 34 U/L (12-37); Bilirubin, Total 0.2 mg/dL (0.1-1.0); Blood Urea Nitrogen 11 mg/dL (8-24); Bun/Creatinine Ratio 13.9 (12.0-20.0); CO2, Blood 31 mmol/L (21-32); Calcium, Blood 8.1 mg/dL (8.5-10.1); Chloride, Blood 104 mmol/L (98-108); Creatinine, Blood 0.79 mg/dL (0.60-1.20); Ethanol (Alcohol), Blood, Med 151 mg/dL; Globulin, Blood 3.3 g/dL (2.2-4.0); Glomerular Filtration Rate >60 (60-); Glucose, Blood 113 mg/dL (70-99); Potassium, Blood 3.8 mmol/L (3.5-5.5); Salicylate 3.3 mg/dL (2.8-20.0); Sodium, Blood 141 mmol/L (136-145); Total Protein, Blood 6.9 g/dL (6.4-8.2); Valproic Acid 4.7 ug/mL (50.0-100.0)
[2018-08-26 20:15] LABS: Acetaminophen, Random <2.0 ug/mL (10.0-30.0)
== END 2018-08-27 07:48 | disposition home or self-care (01) ==
LOC: ER 19:05 → EOR 19:06
PROVIDERS: ADMIT Emergency Medicine
DX: F32.9 Major depressive disorder, single episode, unspecified (principal); F10.129 Alcohol abuse with intoxication, unspecified; F20.9 Schizophrenia, unspecified; F17.210 Nicotine dependence, cigarettes, uncomplicated; Y90.6 Blood alcohol level of 120-199 mg/100 ml; Z91.018 Allergy to other foods; Z79.899 Other long term (current) drug therapy
CPT/HCPCS: 36415; 80053; 80164; 81003; 84443; 85025; G0480

== ENCOUNTER 2018-09-06 08:10 | Emergency (ER) | payer MEDICARE ==
[~2018-09-06] VITALS: Ht 170.2 cm; Wt 81.7 kg
== END 2018-09-06 08:41 | disposition home or self-care (01) ==
LOC: ER 08:10
DX: F10.230 Alcohol dependence with withdrawal, uncomplicated (principal); Z91.018 Allergy to other foods; F17.210 Nicotine dependence, cigarettes, uncomplicated
CPT/HCPCS: 99284

== ENCOUNTER 2018-09-10 07:53 | Observation (INO) | payer MEDICARE ==
[~2018-09-10] VITALS: Ht 172.7 cm; Wt 63.5 kg
[2018-09-10 09:16] LABS: Source, Urine Voided
[2018-09-10 09:20] LABS: BASOPHILS ABSOLUTE AUTO 0.05 K/mm3 (0.00-0.23); BASOPHILS PERCENT AUTO 1 % (0-2); EOSINOPHILS ABSOLUTE AUTO 0.05 K/mm3 (0.00-0.68); EOSINOPHILS PERCENT AUTO 1 % (0-6); Hematocrit 44.2 % (37.0-53.0); Hemoglobin 14.6 g/dL (13.5-17.5); IMMATURE GRAN ABSOLUTE AUTO 0.02 K/mm3 (0.00-0.10); IMMATURE GRAN PERCENT AUTO 0 % (0-1); LYMPHOCYTES ABSOLUTE AUTO 1.46 K/mm3 (0.84-5.20); LYMPHOCYTES PERCENT AUTO 24 % (21-46); MONOCYTES ABSOLUTE AUTO 0.47 K/mm3 (0.16-1.47); MONOCYTES PERCENT AUTO 8 % (4-13); Mean Corpuscular HGB 31.3 pg (26.0-34.0); Mean Corpuscular Volume 95 fL (80-100); Mean Platelet Volume 8.7 fL (9.1-12.4); NEUTROPHILS ABSOLUTE AUTO 3.96 K/mm3 (1.96-9.15); NEUTROPHILS PERCENT AUTO 66 % (41-73); Platelet Count 323 K/mm3 (150-400); RDW Coefficient Variation 13.4 % (11.7-14.2); RDW Standard Deviation 47.4 fL (35.1-46.3); Red Blood Cell Count 4.66 M/mm3 (4.30-5.90); White Blood Cell Count 6.01 K/mm3 (4.00-11.30)
[2018-09-10 09:22] LABS: Bilirubin, Urine Neg (Neg); Blood, Urine 1+ (Neg); Glucose Qualitative, Urine Neg (Neg); Ketones, Urine 3+ (Neg); Leukocyte Esterase, Urine 1+ (Neg); Nitrite, Urine Neg (Neg); Protein, Urine 1+ (Neg); Urobilinogen, Urine NORM (Normal)
[2018-09-10 09:30] LABS: Appearance, Urine Hazy (Clear); Color, Urine Yellow (P-Yellow)
[2018-09-10 09:32] LABS: Red Blood Cells, Urine 0-2 /hpf (0-2); White Blood Cells, Urine 0-2 /hpf (0-5)
[2018-09-10 09:33] LABS: Bacteria Rare /hpf; Squamous Epithelial Cells Rare /hpf (Few)
[2018-09-10 09:34] LABS: Mucus Light (0-Heavy)
[2018-09-10 09:44] LABS: U Amphetamine Screen Not Detected; U Barbituate Screen Not Detected; U Benzodiazapine Screen DETECTED; U Methamphetamine Screen DETECTED
[2018-09-10 09:45] LABS: U Buprenorphine Screen Not Detected; U Cannabinoids Screen DETECTED; U Cocaine Screen Not Detected; U Methadone Screen Not Detected; U Opiates Screen Not Detected; U Oxycodone Screen Not Detected; U Phencyclidine Screen Not Detected; U Propoxyphene Screen Not Detected
[2018-09-10 10:05] LABS: Ethanol (Alcohol), Blood, Med <3 mg/dL; Salicylate 4.4 mg/dL (2.8-20.0)
[2018-09-10 10:11] LABS: Alanine Aminotransfer (ALT/SGP 20 U/L (12-78); Albumin, Blood 3.9 g/dL (3.4-5.0); Alk Phos 101 U/L (50-136); Anion Gap 6 mmol/L (6-16); Aspartate Aminotrans (AST/SGOT 19 U/L (12-37); Bilirubin, Total 0.5 mg/dL (0.1-1.0); Blood Urea Nitrogen 16 mg/dL (8-24); Bun/Creatinine Ratio 22.2 (12.0-20.0); CO2, Blood 26 mmol/L (21-32); Calcium, Blood 8.7 mg/dL (8.5-10.1); Chloride, Blood 107 mmol/L (98-108); Creatinine, Blood 0.72 mg/dL (0.60-1.20); Globulin, Blood 3.8 g/dL (2.2-4.0); Glomerular Filtration Rate >60 (60-); Glucose, Blood 84 mg/dL (70-99); Potassium, Blood 3.7 mmol/L (3.5-5.5); Sodium, Blood 139 mmol/L (136-145); Total Protein, Blood 7.7 g/dL (6.4-8.2)
[2018-09-10 10:12] LABS: Acetaminophen, Random <2.0 ug/mL (10.0-30.0)
== END 2018-09-11 01:25 | disposition home or self-care (01) ==
LOC: ER 07:53 → EOR 07:54
PROVIDERS: ADMIT Emergency Medicine
DX: F19.14 Other psychoactive substance abuse with psychoactive substance-induced mood disorder (principal); F15.10 Other stimulant abuse, uncomplicated; F17.210 Nicotine dependence, cigarettes, uncomplicated; Z76.5 Malingerer [conscious simulation]; Z59.0 Homelessness; Z79.899 Other long term (current) drug therapy
CPT/HCPCS: 36415; 80053; 81001; 84443; 85025; 87086; 99285; G0378; G0480; Q3014

== ENCOUNTER 2018-09-11 17:53 | Emergency (ER) | payer MEDICARE ==
[~2018-09-11] VITALS: Ht 172.7 cm; Wt 72.6 kg
== END 2018-09-11 18:04 | disposition home or self-care (01) ==
LOC: ER 17:53
DX: F10.129 Alcohol abuse with intoxication, unspecified (principal); Z91.018 Allergy to other foods; F17.210 Nicotine dependence, cigarettes, uncomplicated; F20.9 Schizophrenia, unspecified
CPT/HCPCS: 99283

== ENCOUNTER 2018-09-17 13:53 | Inpatient (IN) | payer MEDICARE ==
[~2018-09-17] VITALS: Ht 167.6 cm; Wt 66.2 kg
[2018-09-17 14:22] LABS: PCO2 Arterial 39.3 mmHg (35-45); PO2 Arterial 206 mmHg (80-100); pH Blood Arterial 7.37 (7.35-7.45)
[2018-09-17 14:24] LABS: Source, Urine Catheter
[2018-09-17 14:26] LABS: BASOPHILS ABSOLUTE AUTO 0.05 K/mm3 (0.00-0.23); BASOPHILS PERCENT AUTO 0 % (0-2); EOSINOPHILS ABSOLUTE AUTO 0.11 K/mm3 (0.00-0.68); EOSINOPHILS PERCENT AUTO 1 % (0-6); Hematocrit 43.3 % (37.0-53.0); Hemoglobin 14.1 g/dL (13.5-17.5); IMMATURE GRAN ABSOLUTE AUTO 0.08 K/mm3 (0.00-0.10); IMMATURE GRAN PERCENT AUTO 1 % (0-1); LYMPHOCYTES ABSOLUTE AUTO 1.18 K/mm3 (0.84-5.20); LYMPHOCYTES PERCENT AUTO 9 % (21-46); MONOCYTES ABSOLUTE AUTO 0.53 K/mm3 (0.16-1.47); MONOCYTES PERCENT AUTO 4 % (4-13); Mean Corpuscular HGB 31.6 pg (26.0-34.0); Mean Corpuscular HGB Conc 32.6 g/dL (31.5-36.5); Mean Corpuscular Volume 97 fL (80-100); Mean Platelet Volume 8.8 fL (9.1-12.4); NEUTROPHILS ABSOLUTE AUTO 10.79 K/mm3 (1.96-9.15); NEUTROPHILS PERCENT AUTO 85 % (41-73); Platelet Count 355 K/mm3 (150-400); RDW Coefficient Variation 13.4 % (11.7-14.2); Red Blood Cell Count 4.46 M/mm3 (4.30-5.90); White Blood Cell Count 12.74 K/mm3 (4.00-11.30)
[2018-09-17 14:30] LABS: Appearance, Urine Hazy (Clear); Bilirubin, Urine Neg (Neg); Blood, Urine 3+ (Neg); Glucose Qualitative, Urine 2+ (Neg); Ketones, Urine 1+ (Neg); Leukocyte Esterase, Urine Neg (Neg); Nitrite, Urine Neg (Neg); Protein, Urine 3+ (Neg); Urobilinogen, Urine NORM (Normal)
[2018-09-17 14:45] LABS: Alanine Aminotransfer (ALT/SGP 22 U/L (12-78); Albumin, Blood 3.8 g/dL (3.4-5.0); Alk Phos 104 U/L (50-136); Anion Gap 16 mmol/L (6-16); Aspartate Aminotrans (AST/SGOT 17 U/L (12-37); Bilirubin, Total 0.4 mg/dL (0.1-1.0); Blood Urea Nitrogen 11 mg/dL (8-24); Bun/Creatinine Ratio 11.9 (12.0-20.0); CO2, Blood 21 mmol/L (21-32); Calcium, Blood 8.8 mg/dL (8.5-10.1); Chloride, Blood 104 mmol/L (98-108); Creatinine, Blood 0.92 mg/dL (0.60-1.20); Ethanol (Alcohol), Blood, Med <3 mg/dL; Globulin, Blood 3.8 g/dL (2.2-4.0); Glomerular Filtration Rate >60 (60-); Glucose, Blood 232 mg/dL (70-99); Potassium, Blood 3.3 mmol/L (3.5-5.5); Sodium, Blood 141 mmol/L (136-145); Total Protein, Blood 7.6 g/dL (6.4-8.2)
[2018-09-17 14:46] LABS: Color, Urine Yellow (P-Yellow)
[2018-09-17 14:50] LABS: Amorphous Casts 25-50 /lpf (0); Bacteria Few /hpf; Red Blood Cells, Urine 0-2 /hpf (0-2); Squamous Epithelial Cells Few /hpf (Few); White Blood Cells, Urine 0-2 /hpf (0-5)
[2018-09-17 14:53] LABS: Acetaminophen, Random <2.0 ug/mL (10.0-30.0)
[2018-09-17 14:57] LABS: Dilantin (Phenytoin), Total <0.4 ug/mL (10.0-20.0)
[2018-09-17 14:57] LABS: U Amphetamine Screen DETECTED; U Barbituate Screen Not Detected; U Benzodiazapine Screen Not Detected; U Buprenorphine Screen Not Detected; U Cannabinoids Screen DETECTED; U Cocaine Screen Not Detected; U Methadone Screen Not Detected; U Methamphetamine Screen DETECTED; U Opiates Screen Not Detected; U Oxycodone Screen Not Detected; U Phencyclidine Screen Not Detected; U Propoxyphene Screen Not Detected
[2018-09-17 15:34] LABS: Magnesium, Blood 1.9 mg/dL (1.6-2.4)
--- NOTE | 2018-09-17 18:32 | NUR ---
1605 PT ADMITTED AND VERY RESTLESS AND AGITATED. REQUIRING 4 POINT SOFT AND VEST RESTRAINT. ORDER PLACED. PT IS UNABLE TO COOPERATE OR FOLLOW COMMANDS. SUBSIQUENT ORDER FOR PRECEDEX GTT PLACE AND WAS PLACED ON 0.4 THEN UPTO 0.7 MCG PRECEDEX GTT THEN ATIVAN IV GIVEN NOTED PER EMAR TO MANNAGE PT. PT IV LINE AND HOLDER CATH LINES POSITIONED FOR PROTECTION.
--- NOTE | 2018-09-17 19:30 | NUR ---
[place] of Care: Patient restless in bed, turning [id number], mumbling words "I want to go home". Patient unable to follow any command's, unable to re-direct patient. Currently in x4 point soft restraints and nima vest r/t safety as patient will attempt to get out of bed and/or pull at lines, tubes, cords. CIWA of 20 at this time, prn IV Ativan given. Precedex gtt at 0.7mcg/kg/min. Peripheral IV's x2 patent and intact. Francis cath patent and intact, draining cloudy yellow urine. Will continue to monitor for pain, safety, comfort.
--- NOTE | 2018-09-18 02:06 | NUR ---
ASSUMED CARE ASSUMED CARE OF PATIENT. RESTING QUIETLY WHEN UNDISTURBED. ROUSES TO VERBAL STIMULI. ORIENTED TO SELF ONLY AT THIS TIME. FOLLOWS SIMPLE COMMANDS. SPEECH IS GARBLED. ANTONIA VEST AND BILATERAL SOFT WRIST RESTRAINTS REMAIN IN PLACE AT THIS TIME. SEDATED WITH PRECEDEX @ 0.5MCG/KG/HR. MOVES ALL EXTREMITIES AND IS ABLE TO REPOSITION SELF IN BED. MONITOR SHOWS SB-SR, RATE 55-60s. HYPERTENSIVE AT TIMES. REMAINS ON 2L NC. RESPIRATIONS EVEN AND UNLABORED. HOLDER PATENT AND DRAINING YELLOW URINE. NS INFUSING @ 150CC/HR PER ORDER. SEE SHIFT ASSESSMENT FOR FULL ASSESSMENT.
[2018-09-18 04:41] LABS: Anion Gap 6 mmol/L (6-16); Blood Urea Nitrogen 7 mg/dL (8-24); Bun/Creatinine Ratio 11.8 (12.0-20.0); CO2, Blood 26 mmol/L (21-32); Chloride, Blood 109 mmol/L (98-108); Creatinine, Blood 0.59 mg/dL (0.60-1.20); Glomerular Filtration Rate >60 (60-); Glucose, Blood 135 mg/dL (70-99); Potassium, Blood 4.3 mmol/L (3.5-5.5); Sodium, Blood 141 mmol/L (136-145)
[2018-09-18 04:42] LABS: BASOPHILS ABSOLUTE AUTO 0.02 K/mm3 (0.00-0.23); BASOPHILS PERCENT AUTO 0 % (0-2); EOSINOPHILS ABSOLUTE AUTO 0.01 K/mm3 (0.00-0.68); EOSINOPHILS PERCENT AUTO 0 % (0-6); Hematocrit 42.4 % (37.0-53.0); Hemoglobin 14.2 g/dL (13.5-17.5); IMMATURE GRAN ABSOLUTE AUTO 0.03 K/mm3 (0.00-0.10); IMMATURE GRAN PERCENT AUTO 0 % (0-1); LYMPHOCYTES ABSOLUTE AUTO 1.24 K/mm3 (0.84-5.20); LYMPHOCYTES PERCENT AUTO 10 % (21-46); MONOCYTES ABSOLUTE AUTO 0.85 K/mm3 (0.16-1.47); MONOCYTES PERCENT AUTO 7 % (4-13); Mean Corpuscular HGB 31.6 pg (26.0-34.0); Mean Corpuscular HGB Conc 33.5 g/dL (31.5-36.5); Mean Corpuscular Volume 94 fL (80-100); Mean Platelet Volume 9.1 fL (9.1-12.4); NEUTROPHILS ABSOLUTE AUTO 10.31 K/mm3 (1.96-9.15); NEUTROPHILS PERCENT AUTO 83 % (41-73); Platelet Count 213 K/mm3 (150-400); RDW Coefficient Variation 13.2 % (11.7-14.2); RDW Standard Deviation 45.7 fL (35.1-46.3); Red Blood Cell Count 4.49 M/mm3 (4.30-5.90); White Blood Cell Count 12.46 K/mm3 (4.00-11.30)
--- NOTE | 2018-09-18 06:25 | NUR ---
Shift Summary: Patient sedated/sleeping for majority of shift. Continues to be confused, restless, and agitated when awake. Unable to follow any commands, unable to re-direct, attempts to get out of bed. VSS throughout shift, except for patient's HR decreased to high 30's for approx 10-15 seconds, BP remained WNL. Precedex gtt decreased from 0.7 to 0.5, then placed on stand-by when patient's HR decreased to 30's. Precedex continues on stand-by at this time, patient remains asleep, VSS. Francis cath remains patent and intact, draining yellow, cloudy urine. Appears calm and comfortable at this time. Will continue to monitor until report to day shift RN.
--- NOTE | 2018-09-18 09:54 | NUR ---
BEGINNING OF SHIFT Assumed care at 0700 with Meet CHEEMA. Bedside report received from Serge CHEEMA. Pt asleep in bed at time of report. Pt in soft wrist restraints bilaterally and vest restraint. Swelling noted to right arm. Two saline locked IVs in place. Plan to removed these sites. IV to left upper arm infusing 0.5 mcg/kg/min of precedex and 150 mL/hr of NS. Pt spontaneously wakes up and pulls at restraints and repositions self. Pt does not follow commands. When asked his name, pt states "Theodore". He answers other questions provided by this RN, however his speech is incomprehensible. Pt often moans when BP cuff inflates. Francis catheter in place for strict measurement of fluid intake and output. Draining clear, yellow urine. Lungs clear, but dim in bases. Sinus bradycardia - sinus rhythm per monitor. Dr Alicia in to see pt this AM. Plan to continue plan of care with precedex/ativan for agitation. Pt has not had any seizure activity this shift.
--- NOTE | 2018-09-18 09:54 | NUR ---
BEGINNING OF SHIFT Assumed care at 0700 with Meet CHEEMA. Bedside report received from Serge CHEEMA. Pt asleep in bed at time of report. Pt in soft wrist restraints bilaterally and vest restraint. Swelling noted to right arm. Two saline locked IVs in place. Plan to removed these sites. IV to left upper arm infusing 0.5 mcg/kg/hr of precedex and 150 mL/hr of NS. Pt spontaneously wakes up and pulls at restraints and repositions self. Pt does not follow commands. When asked his name, pt states "Theodore". He answers other questions provided by this RN, however his speech is incomprehensible. Pt often moans when BP cuff inflates. Francsi catheter in place for strict measurement of fluid intake and output. Draining clear, yellow urine. Lungs clear, but dim in bases. Sinus bradycardia - sinus rhythm per monitor. Dr Alicia in to see pt this AM. Plan to continue plan of care with precedex/ativan for agitation. Pt has not had any seizure activity this shift.
--- NOTE | 2018-09-18 14:30 | NUR ---
UPDATE Pt was assessed by Betty CHEEMA and Misty RN for placement of Powerglide as pt had two IV access quit working during previous shift. Pt's anatomy was not appropriate for Powerglide placement when assessed with ultrasound. PICC placed to [facility] by Misty CHEEMA. Pt was agitated and restless prior to PICC placement; ativan administered and precedex increased from 0.4 mcg/kg/hr to 0.7 mcg/kg/hr. At this time, pt is sleeping in bed and snoring. Opens eyes to verbal stimulus. Precedex currently at 0.5 mcg/kg/hr.
--- NOTE | 2018-09-18 18:04 | NUR ---
SUMMARY During attempt to titrate precedex down, pt agitated and anxious, shouting "please don't give me shock therapy". At times, pt was crying and fearful. Pt also stated "I have to pee!" several times. Educated pt about urinary catheter, but pt was unreceptive. Pt has been sleeping for majority of time since last note. Pt has remained at 0.5 mcg/kg/hr of precedex. Bedbath provided to patient. Pt able to follow directions when asked to roll from one side to another, or sit up, but he did require maximum assistance to do this. Pt appears much more comfortable than he did when precedex was at 0.4 mcg/kg/min and ativan was being used for anxiety/agitation. Francis catheter remains in place. A small amount of swelling is noted to penis. Catheter care provided. No events per heart monitor this shift. Pt has had some high blood pressures with systolic greater than 160, that resolved without antihypertensive medication. Will continue to closely monitor until care handoff and bedside report with oncoming RN.
--- NOTE | 2018-09-18 21:40 | NUR ---
BACK PAIN PT WITH INCREASED RESTLESSNESS NOTED. C/O BACK PAIN. CALL TO MEMO MORSE NP, FOR PAIN CONTROL- NEW ORDERS RECEIVED FOR TORADOL.
[2018-09-19 05:56] LABS: Anion Gap 4 mmol/L (6-16); Blood Urea Nitrogen 3 mg/dL (8-24); Bun/Creatinine Ratio 5.7 (12.0-20.0); CO2, Blood 28 mmol/L (21-32); Chloride, Blood 109 mmol/L (98-108); Creatinine, Blood 0.52 mg/dL (0.60-1.20); Glomerular Filtration Rate >60 (60-); Glucose, Blood 102 mg/dL (70-99); Magnesium, Blood 1.7 mg/dL (1.6-2.4); Potassium, Blood 2.9 mmol/L (3.5-5.5); Sodium, Blood 141 mmol/L (136-145)
--- NOTE | 2018-09-19 06:08 | NUR ---
SHIFT SUMMARY NO ACUTE CHANGES DURING SHIFT. PRECEDEX INFUSED BETWEEN 0.5-0.7MCG/KG/HR- NOW INFUSING @ 0.6MCG/KG/HR. ALSO MEDICATED WITH ATIVAN IV X 2 DOSES FOR CIWA SCORE 11-15. PT CONTINUES TO BE ORIENTED TO SELF ONLY. CONTINUOUSLY ASKING "WHERE AM I?" AND "WHAT HAPPENED?" POOR SHORT TERM MEMORY NOTED. REPOSITIONS SELF IN BED. ANTONIA VEST AND BILATERAL SOFT WRIST RESTRAINTS REMAIN IN PLACE. MEDICATED WITH HYDRALAZINE X 1 DOSE DURING SHIFT FOR HYPERTENSION WITH GOOD RESULT. MEDICATED WITH TORADOL 15MG IV X 1 FOR C/O BACK PAIN WITH GOOD RESULTS. HOLDER PATENT AND DRAINING YELLOW URINE. ATTEMPTED SIPS OF WATER BUT COUGHING NOTED- WILL KEEP NPO FOR NOW. NS INFUSING @ 150CC/HR PER ORDER. WILL REPORT TO DAY SHIFT RN WHEN AVAILABLE.
--- NOTE | 2018-09-19 14:27 | NUR ---
0800 NOTE. PT IS RESTING WELL ON PRECEEX GTT AT 0.6 MCG. PT VS NOTED. ABLE TO VERBALLY AID PT TO RELAX AND AROUSES EASILY.
--- NOTE | 2018-09-19 18:25 | NUR ---
PT HAS BEEN AWAKE FOR SHORT EPISODES THIS SHIFT BUT RETURN TO SLEEP W/O INCIDENT. VSS. I/O NOTED. PT CURRENTLY VERBAL AND WILL MONITOR FOR DISTRESS.
--- NOTE | 2018-09-19 21:19 | NUR ---
[place] of Care: Care assumed at 1900hr. Patient awake at shift change, pulling on restraints, yelling out, asking staff to remove monitor tubes/cords. Oriented to self, confused to place, time/date, reason for admission. CIWA of 21 at shift change prn ativan 2mg given with good effect, precedex gtt at 0.6mckg/kg/min. Patient back/forth between sleeping and awake. Agitated when awake but continues to follow commands. Some hallucination's noted, patient stated he saw spiders crawling on the wall. PICC line to DONOVAN patent and intact. Francis cath patent and intact, draining light yellow, clear urine. Bilateral soft wrist restraints and nima vest in place for safety. Will continue to monitor for pain, comfort, safety.
[2018-09-20 03:19] LABS: Hematocrit 37.8 % (37.0-53.0); Hemoglobin 12.7 g/dL (13.5-17.5); Mean Corpuscular HGB 31.8 pg (26.0-34.0); Mean Corpuscular HGB Conc 33.6 g/dL (31.5-36.5); Mean Corpuscular Volume 95 fL (80-100); Mean Platelet Volume 8.7 fL (9.1-12.4); Platelet Count 258 K/mm3 (150-400); RDW Coefficient Variation 13.2 % (11.7-14.2); RDW Standard Deviation 45.9 fL (35.1-46.3); Red Blood Cell Count 3.99 M/mm3 (4.30-5.90); White Blood Cell Count 6.84 K/mm3 (4.00-11.30)
[2018-09-20 03:36] LABS: Anion Gap 7 mmol/L (6-16); Blood Urea Nitrogen 6 mg/dL (8-24); CO2, Blood 25 mmol/L (21-32); Calcium, Blood 8.5 mg/dL (8.5-10.1); Chloride, Blood 107 mmol/L (98-108); Creatinine, Blood 0.66 mg/dL (0.60-1.20); Glomerular Filtration Rate >60 (60-); Glucose, Blood 82 mg/dL (70-99); Magnesium, Blood 1.8 mg/dL (1.6-2.4); Potassium, Blood 3.3 mmol/L (3.5-5.5); Sodium, Blood 139 mmol/L (136-145)
--- NOTE | 2018-09-20 05:47 | NUR ---
Shift Summary: Patient slept well throughout shift. Continues to be confused when awake, attempts to pull at restraints, lines, tubes, cords, but cooperative with staff when re-directed. Precedex gtt titrated down from 0.6 to 0.4 throughout shift, only x1 dose of prn ativan indicated early in shift. PICC line to DONOVAN remains patent and intact. Francis cath remains patent and intact. Morning labs showed potassium of 3.3, received order per Dr. Bojorquez for 40meq KCl IV x1. VSS, O2-95-98% throughout shift. Sleeping and appears comfortable at this time. Will continue to monitor for pain, comfort, safety.
--- NOTE | 2018-09-20 09:19 | NUR ---
PT REQUESTING TO HAVE HOLDER REMOVED. PT IS MUCH MORE ALERT THIS MORNING, ABLE TO FOLLOW COMMANDS. HOLDER DC'D PER PROTOCOL. PT'S RESTRAINTS ALSO DC'D THIS MORNING AND BED ALARM ON. LIBRIUM GIVEN FOR CIWAA AND PRECEDEX GTT TITRATED OFF. DR. MCKEON BY AND GAVE OK FOR PT TO EAT. PT TOLERATED BREAKFAST WELL. CONTINUE TO MONITOR.
--- NOTE | 2018-09-20 13:09 | NUR ---
REASSESSMENT: PT HAS BEEN RESTING IN BED THROUGHOUT THE MORNING. HE GOT UP ONCE TO THE COMMODE AND IS VERY WEAK. HE HAD DIFFICULTY TRANSFERRING STRAIGHT FROM THE BED TO THE COMMODE AND THEN BACK. HE REMAINS ALERT AND ORIENTED, CIWAA 8, PRN LIBRIUM GIVEN. PT HAS A LOW GRADE FEVER, WILL GIVE TYLENOL. LUNGS CLEAR, RA, ST, BP STABLE. PT HAS VOIDED SINCE HOLDER REMOVED. CONTINUING TO MONITOR.
--- NOTE | 2018-09-20 14:43 | NUR ---
SOKE WITH DR. MCKEON ABOUT PT DOING WELL WITH PRECEDEX GTT OFF SINCE EARLY THIS MORNING. PT REMAINS COOPERATIVE, FOLLOWING DIRECTIONS, CIWAA OF 8 AT NOON. RECEIVED ORDER TO TRANSFER TO PCU.
--- NOTE | 2018-09-20 17:35 | NUR ---
SHIFT SUMMARY: PT HAS DONE WELL THIS SHIFT WITH THE PRECEDEX GTT TURNED OFF AND RESTRAINTS REMOVED AT THE BEGINNING OF THE SHIFT. HIS CIWAA HAS BEEN ABOUT 8-11, LIBRIUM GIVEN TWICE THIS SHIFT AND PT HAS SLEPT FOR MOST OF IT WHEN UNDISTURBED. HE CONTINUES TO BE COOPERATIVE AND FOLLOW COMMANDS. SR, BP STABLE. FEVER BETTER AFTER TYLENOL. HE GOT UP TO THE COMMODE AND HAD A BM, THEN GOT UP TO THE SHOWER CHAIR AND WAS ABLE TO TAKE A SHOWER. HIS LEGS ARE QUITE WEAK REQUIRING 1-2 PERSON ASSISTANCE FOR EVEN SHORT TRANSFERS. HE IS VOIDING INDEPENDENTLY AFTER HAVING HOLDER REMOVED. CONTINUING TO MONITOR.
--- NOTE | 2018-09-20 18:02 | NUR ---
When walking past the room ov=bserved pt making uncoordinated slicing movements with his dinner knife across his hand. WHne pt was asked what he was doing he said "trying to slice my wrist." Asked pt why he wanted to do this and he said to kill himself. Reassessed pt using suicide severity scale and pt is now positive. While in the room pt starts sobbing, saying he doesn't feel good and wants to . PT also states he plans to jump off the [place] bridge when he leaves the hospital. Comfort provided to pt. Room cleared of hazards. Dr. Yepez notified and suicide precautions intitiated and Dr. Coronado to be consulted.
--- NOTE | 2018-09-20 20:00 | NUR ---
ASSUMED CARE PT SLEEPING IN ROOM COMFORTABLY. PT WAS EASILY AROUSABLE. PER DAY SHIFT PT WAS REMOVBED FROM RESTRAINTS, AND ANTONIA VEST. PT MORE COOPERATIVE WITH CARE. PER DAY SHIFT PT WAS GIVEN DINNER TRAY AND WAS WHTNESSED TO BE USING BUTTER KNIFE ON WRISTS. PT WAS ASKED WHAT HE WAS DOING AND REPORTED HE WAS TRYING TO KILL HIMSELF. PT WAS STARTED ON VIDEO MONITORING. UPON ASSESSMENT, PT REPORTED TO THIS RN "IDONT HAVE ANYTHING TO LIVE FOR, WHEN I LEAVE HERE I AM GOING TO JUMP OFF THE BRIDGE ON THE INTERSTATE. I WANT TO .". PT EDUCATED THAT HE WOULD BE STAYING THE NIGHT IN THE HOSPITAL UNDER OBSERVATION AND WOULD BE SEEN BY HOSPITAL PSYCHIATRIST IN THE AM. PT REPORTS UNDERSTANDING AND AGREES TO STAY. RESP EVEN UNLABORED ON RA W/ SATS >92%. DENIES CP, DENIES SOB. CALL LIGHT IS WITHIN REACH. PT PROVIDED WITH SANDWHICH AND PUDDING AT THIS TIME WITH PLASTIC SPOON. PT CONTRACTED FOR SAFETY WITH SPOON, WILL BE MONITORED. CALL LIGHT IN REACH.
--- NOTE | 2018-09-20 20:30 | NUR ---
PT TOOK PLASTIC SPOON AND BROKE END TO USE ON WRISTS. THIS RN TO ROOM QUICKLY, SPOON REMOVED FROM ROOM. PT EDUCATED THAT HE WOULD NO LONGER BE ALOWED ANYTHIGN PLASTIC WITH ANY EDGES, AND ONLY FINGER FOODS WOULD BE PROVIDED. PT TEARFUL AND STATING "I'M SORRY I JUST DONT HAVE ANYTHIGN TO LIVE FOR". PT EDUCATED ABOUT SAFETY MONITORING, AND THAT THIS BEHAVIOR WOULD NOT BE TOLERATED OR ALLOWED TONIGHT. PT REPORTS UNDERSTANDING.
--- NOTE | 2018-09-21 05:40 | NUR ---
SHIFT SUMMARY PT RESTING IN ROOM COMFORTABLY WATCHING TV. NO ACUTE CHANGES IN STATUS SINCE LAST UPDATE, SEE PREVIOUS NOTE. PT REMAINS SUICIDAL AT THIS TIME, BUT IS COOPERATIVE W/ CARE AND REMAINING IN HOSPITAL TO SEE DR SALEH THIS AM. PT REPORTS HE HAS A PLAN TO "JUMP OFF THE BRIDGE OVER THE INTERSTATE THE SECOND I LEAVE HERE". THIS RN HAS HAD MULTIPLE THERAPUTIC CONVERSATIONS W/ PT ABOUT FAMILY, FRIENDS, AND HOME LIFE, AND THINGS TO LOOK FORWARD TO OUTSIDE OF THE HOSPITAL. PT CONTINUES TO HAVE DEPRESSED AFFECT, AND REITERATES SI. DUE TO EVENTS EARLIER IN SHIFT OUTLINED IN PREVIOUS NOTES, PT NOT TO HAVE ANY PLASTIC IN ROOM. CALL LIGHT IN REACH.
--- NOTE | 2018-09-21 07:15 | NUR ---
AM NOTE. ASSUMED CARE OF PT APROX 0700, PT IS A&Ox3 UNABLE TO STATE THE DATE. PT WAS ADMITTED FOR ETOH W/D AND IS CURRENTLY HIGH RISK S.I. MONITOR INTACT, NSR IN THE 710'S-80'S. PT'S BP STABLE. L/S CLEAR T/O, PT IS ON RA WITH O2 SATS >90%. BT PRESENT AND NORMOACTIVE. PT STATED THAT HE WANTED TO LEAVE, THIS RN ASKED PT IF HE STILL WANTED TO END HIS LIFE AND IF HE STILL HAD A PLAN, PT DENIES EVER WANTING TO END HIS LIFE. PT WAS TOLD ABOUT THE COMMENTS HE HAD MADE THE PREVIOUS SHIFT AND THE ATTEMPT HE HAD MADE WITH A PLASTIC SPOON TO CUT HIS WRISTS. PT AGAIN STATED THAT HE DID NOT REMEMBER MAKING THOSE STATEMENTS AND THAT HE WANTED TO LIVE SO HE COULD "GO HOME TO [place]." PT HAS TELE [facility] CONSULT SCHEDULED FOR TODAY. WILL CONTINUE TO MONITOR.
[2018-09-21 08:35] LABS: Anion Gap 6 mmol/L (6-16); Blood Urea Nitrogen 13 mg/dL (8-24); Bun/Creatinine Ratio 16.9 (12.0-20.0); CO2, Blood 27 mmol/L (21-32); Calcium, Blood 8.4 mg/dL (8.5-10.1); Chloride, Blood 107 mmol/L (98-108); Creatinine, Blood 0.77 mg/dL (0.60-1.20); Glomerular Filtration Rate >60 (60-); Glucose, Blood 112 mg/dL (70-99); Potassium, Blood 3.7 mmol/L (3.5-5.5); Sodium, Blood 140 mmol/L (136-145)
--- NOTE | 2018-09-21 19:41 | NUR ---
SHIFT SUMMARY. PT HAS BEEN VERY PLEASENT AND COOPERATIVE WITH STAFF TODAY. PT HAS NOT STATED ANY SUICIDAL INTENTS OR PLANS. PT STATED THAT HE DID NOT REMEMBER TRYING TO CUT HIS WRISTS OR STATING HE PLANNED TO KILL HIMSELF. PT STATED HE WANTED TO GO HOME TO [place] AND BE WITH HIS FAMILY. THIS RN ATTEMPTED TO HELP PT CALL A FAMILY MEMBER, HOWEVER THAT FAMILY MEMBER WAS NO LONGER AT THAT LOCATION. PT STATED HE DID NOT KNOW ANY OTHER FAMILY MEMBER'S NUMBERS. PT HAS BEEN VERY EMOTIONAL TODAY CRYING MULTIPLE TIMES WHILE TALKING ABOUT HIS FAMILY AND GOING BACK TO [place]. DURING SHIFT CHANGE AND BEDSIDE REPORT PT WAS UP IN A CHAIR WAITING FOR HIS TELE [facility] CONSULT. PT ASKED TO GO BACK TO BED AND STARTED CRYING STATING "I JUST DON'T FEEL GOOD." PT ALSO STATED THAT HE WAS FEELING "NUMB ON THE LEFT SIDE OF HIS BODY." WHEN PT WAS TRANSFERED FROM THE CHAIR TO THE BED PT'S LEFT LEG WAS VERY WEAK AND IT WAS HARD FOR THE PT TO STAND. CALL LIGHT IN REACH, BED IS LOCKED WITH BED ALARM ON, WILL CONTINUE TO MONITOR UNTIL REPORT IS GIVEN TO ONCOMING RN.
--- NOTE | 2018-09-21 22:47 | NUR ---
ASSUMED CARE OF PATIENT AT APPROXIMATELY 1905 FROM ALVARO Ribeiro RN. PATIENT ALERT AND ORIENTED TO SELF, LOCATION AND EVENT. PATIENT UNABLE TO STATE DATE, FORGETFUL AT TIMES. HIGH RISK S.I.; CAMERA IN USE; PATIENT REPORTS DURING BEDSIDE REPORT THAT HIS LEFT SIDE HAD SOME NUMBNESS AND TINGLING AT TIMES; NO FACIAL DROOP NOTED; PATIENT REPORTS NUMBNESS GOES FROM HAND TO UPPER ARM; ABLE TO FEEL WHEN PIV WAS FLUSHED; REPORTED FELT COLD. REPORTS HAS BEEN OFF AND ON FOR THE PAST YEAR. PATIENT TEARFUL DURING BEDSIDE REPORT ALSO. PATIENT WAS IN CHAIR AND REQUESTED TO GO BACK TO BED; 2 ASSIST WITH GAIT BELT; WEAK GAIT. PATIENT REPORTS PAIN IN LOWER LEFT ABDOMEN; MEDICATED PER EMAR; REPORTED PAIN GONE. PIV BAD IN SILVER; NEW IV PLACED BY NORBERTO. URINATES INTO URINAL AT BEDSIDE. NSR ON TELE; OXYGEN SATURATION ABOVE 90% ON ROOM AIR. PATIENT VOMITTED WITH FOOD PARTICLES; DENIES NAUSEA AFTERWARDS; ABLE TO HOLD [place]. [facility]. PATIENT CURRENTLY SLEEPING IN BED; CALL LIGHT IN REACH; BED IN LOWEST POSISTION; WILL CONTINUE TO MONITOR AND ASSESS UNTIL END OF SHIFT.
--- NOTE | 2018-09-22 05:33 | NUR ---
TELEPSYCH IN PROGRESS
--- NOTE | 2018-09-22 06:17 | NUR ---
DR. GARZA (TELEPYSCH DOCTOR) CALLED FOR RECOMMENDATIONS; CONTINUE TO HOLD PATIENT IN HOSPITAL AND SHE WILL GIVE MEDICATION RECOMMENDATIONS TO THE DOCTOR. PATIENT HAS SLEPT ABOUT EIGHT HOURS. REPORTS FEELING DIZZY AFTER TRANSFERRING TO THE CHAIR THIS MORNING FOR TELEPYSCH MEETING. PATIENT CURRENTLY SLEEPING IN BED AGAIN. WILL CONTINUE TO MONITOR AND ASSESS UNTIL END OF SHIFT.
--- NOTE | 2018-09-22 09:01 | NUR ---
GREASE PRESS HELPER REPORTS THAT THE FIRST THING PT ASKED HER WHEN SHE WENT IN WITH HIS TRAY WAS IF THERE WAS A KNIFE ON IT, WHICH THERE WAS NOT. LATER CENTRAL MONITORING CALLED TO REPORT PT DRAGGING SOMETHING ACROSS HIS HAND. PT HAD A SPOON IN HIS HAND, DRAGGING THE EDGE ACROSS HIS ARM TRYING TO CUT IT. WHEN THIS RN WENT IN THE ROOM PT GRABBED HIS SPOON TIGHT AND TRIED TO HIDE AND NOT GIVE IT UP. HE WAS PERSUADED WITHIN A FEW MINUTES TO HAND OVER THE SPOON. PT STARTED CRYING SAYING HE WANTS TO . LATER PT OBSERVED SCRATCHING/DRAGGING HIS NAILS DOWN HIS ARMS WHERE HIS VEINS ARE. PT'S NAILS ARE SHORT THOUGH SO HE IS NOT ABLE TO BREAK THE SKIN AT ALL. PT REMINDED THAT WE ARE HERE TO PROTECT HIM AND KEEP HIM SAFE. EMOTIONAL SUPPORT PROVIDED. CONTINUE TO OBSERVE CLOSELY.
--- NOTE | 2018-09-22 15:23 | NUR ---
PT REQUESTING TO GO OUT AND SMOKE. STATES HE NORMALLY SMOKES ABOUT A HALF A PACK PER DAY. DR. MCKEON NOTIFIED AND RECEIVED ORDER FOR NICOTINE PATCH, SEE ORDERS.
--- NOTE | 2018-09-22 16:27 | NUR ---
SHIFT SUMMARY: PT HAS HAD NO ACUTE CHANGES THIS SHIFT. HE CONTINUES TO EXPRESS SUICIDAL THOUGHTS STATING THAT HE WISHES HE WAS OR THAT HE JUST WANTS TO . HE ALSO HAS BURST INTO TEARS SEVERAL TIMES TODAY. REMAINS ALERT AND ORIENTED, LUNGS CLEAR, REGULAR HR, BP STABLE, VOIDING WITHOUT DIFFICULTY, HAD A BM TODAY. CONTINUING TO MONITOR.
--- NOTE | 2018-09-22 18:59 | NUR ---
TRANSFER: PT TRANSFERRED TO RM 345 VIA WC WITH RN. REPORT GIVEN TO DENI COOLEY. PT TOLERATED TRANSFER WELL.
[2018-09-23 04:42] LABS: Hematocrit 40.6 % (37.0-53.0); Hemoglobin 13.3 g/dL (13.5-17.5); Mean Corpuscular HGB 31.7 pg (26.0-34.0); Mean Corpuscular HGB Conc 32.8 g/dL (31.5-36.5); Mean Corpuscular Volume 97 fL (80-100); Mean Platelet Volume 8.8 fL (9.1-12.4); Platelet Count 290 K/mm3 (150-400); RDW Coefficient Variation 13.2 % (11.7-14.2); RDW Standard Deviation 47.6 fL (35.1-46.3); White Blood Cell Count 6.64 K/mm3 (4.00-11.30)
--- NOTE | 2018-09-23 04:55 | NUR ---
SHIFT SUMMARY: PT IS ALERT AND ORIENTED. PT IS CALM AND COOPERATIVE WITH CARE. PT CALLS APPROPRIATELY. PT IS A 2 PERSON ASSIST TO THE BATHROOM, USES THE URINAL IN BED INDEPENDENTLY. SUICIDE PRECAUTIONS IN PLACE. PT DENIES PAIN, NAUSEA, VOMITING, AND SOB. PT SLEPT MUCH OF THE NIGHT WHEN NOT DISTURBED. NO ACUTE CHANGES OR COMPLICATIONS. WILL REPORT TO DAY NURSE.
[2018-09-23 04:58] LABS: Anion Gap 5 mmol/L (6-16); Blood Urea Nitrogen 15 mg/dL (8-24); Bun/Creatinine Ratio 20.5 (12.0-20.0); CO2, Blood 30 mmol/L (21-32); Calcium, Blood 8.6 mg/dL (8.5-10.1); Chloride, Blood 103 mmol/L (98-108); Creatinine, Blood 0.73 mg/dL (0.60-1.20); Glomerular Filtration Rate >60 (60-); Glucose, Blood 101 mg/dL (70-99); Potassium, Blood 4.3 mmol/L (3.5-5.5); Sodium, Blood 138 mmol/L (136-145)
--- NOTE | 2018-09-23 07:23 | NUR ---
PT ATTEMPTING TO HARM SELF WITH TOURAQUET. PT FOUND IN ROOM WITH ORANGE TOURNAQUET. PT WAS HOLDING IT AGAINST HIS NECK. THIS RN INFORMED THE PT THAT HE MUST GIVE UP THE TOURNAQUET. PT BECAME TEARFUL & HANDED THE TOURNAQUET OVER TO THIS RN. V BELT FINISHER NOTIFIED. LAB NOTIFIED OF EVENT. ROOM OBSERVED FOR OTHER HARMFUL OBJECTS. WILL CONTINUE TO MONITOR.
--- NOTE | 2018-09-23 07:31 | NUR ---
ONLINE COMMUNICATIONS SPECIALIST VERIFIED THIS RN CALLED TO VERIFY THAT THE PT IS CLEARLY SEEN THROUGH THE MONITORS. AUBREE VALENTINE, ONLINE COMMUNICATIONS SPECIALIST CONFIRMED THAT PT IS IN VIEW.
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
--- NOTE | 2018-09-23 10:01 | NUR ---
WEAK TRANSFER TO [facility] PT VERY WEAK WHEN TRANSFERING TO [facility]. 2 STAFF REQUIRED TO ASSIST WITH TRANSFER. PT PREVIOUSLY A STAND BY ASSIST. WILL CONTINUE TO MONITOR
--- NOTE | 2018-09-23 12:46 | NUR ---
PT ATTEMPTING SELF HARM WITH ORANGE JUICE CONTAINER PT FINICHED HIS LUNCH & WAS FOUND TRYING TO CUT HIS R WRIST WITH HIS EMPTY OJ CONTAINER. PT SKIN UNBROKEN. TRAY REMOVED.
--- NOTE | 2018-09-23 17:34 | NUR ---
SHIFT SUMMARY NO CHANGES IN ASSESSMENT AT THIS TIME. VSS. PT CONTINUES TO COMPLAIN FOR PAIN IN HIS L UPPER ABD/RIB CAGE. PT STATES IT HURTS WHEN HE COUGHS OR DEEP BREATHS. PT MEDICATED FOR PAIN X2 THIS SHIFT. PT HAS ATTEMPTED TO HARM SELF 3X THIS SHIFT. SEE NOTES. PT IN STABLE CONDITION. AWARE OF MASS FOUND IN L UPPER RIBCAGE. WILL CONTINUE TO MONITOR UNTIL TURNOVER IS COMPLETE.
--- NOTE | 2018-09-24 05:11 | NUR ---
SHIFT SUMMARY: PT IS ALERT AND ORIENTED. PT IS CALM AND COOPERATIVE WITH CARE. PT CALLS APPROPRIATELY. SI PRECAUTIONS IN PLACE, NO IDEATION OVERNIGHT. PT IS A 1-2 ASSIST TO THE BATHROOM, USES THE URINAL INDEPENDENTLY IN BED. PT SLEPT MUCH OF THE NIGHT. PT DENIES PAIN, NAUSEA, VOMITING, AND SOB. NO ACUTE CHANGES OR COMPLICATIONS THIS SHIFT. BED IN LOW POSITION, CALL LIGHT WITHIN REACH, BED ALARM SET.
--- NOTE | 2018-09-24 07:51 | NUR ---
OPTICAL SYSTEMS ENGINEER VERIFIED THIS RN CALLED OPTICAL SYSTEMS ENGINEEREDIE TO VERIFY THAT PT IS CLEARLY SEEN.
[2018-09-24] MEDS ORDERED: FOLI1 PO (16:35)
[2018-09-24] MEDS ORDERED: AMLO5 PO (16:35)
[2018-09-24] MEDS ORDERED: Nicoderm Cq1 EAC1 TOP (16:36)
[2018-09-24] MEDS ORDERED: LEVE500 PO (16:36)
[2018-09-24] MEDS ORDERED: ACET325 PO (16:37)
--- NOTE | 2018-09-24 17:31 | NUR ---
PT DISCHARGED PT DISCAHRGED IN STABLE CONDITION WITH VSS. PT EDUCATED ON IMPORTANCE OF A PCP & TO FOLLOW UP WITH [facility]. NO CHANGES IN ASSESSMENT PRIOR TO DC. PT AMBULATED OUT OF BUILDING WITH ENROLLMENT MANAGEMENT VICE PRESIDENT TO WAIT FOR TAXI IN THE SMOKING AREA. PT IV REMOVED & INTACT. PT GIVEN SCRUBS & FOOD FOR DC. PT TO BE DROPPED OFF AT [facility].
== END 2018-09-24 17:34 | disposition home or self-care (01) | DRG 101 ==
LOC: ER 13:53 → ICUE 14:03 → ICUW 14:03 → ICUE 16:05 → MEDS 09-22 18:44
PROVIDERS: Emergency Medicine; Hospitalist; Internal Medicine; ADMIT Internal Medicine
PROC: 02HV33Z Insertion of Infusion Device into Superior Vena Cava, Percutaneous Approach (ICD-10-PCS; principal; 2018-09-18)
PROC: 4A02X4A Measurement of Cardiac Electrical Activity, Guidance, External Approach (ICD-10-PCS; 2018-09-18)
DX: R56.9 Unspecified convulsions (principal); F10.230 Alcohol dependence with withdrawal, uncomplicated; F15.20 Other stimulant dependence, uncomplicated; R65.10 Systemic inflammatory response syndrome (SIRS) of non-infectious origin without acute organ dysfunction; I82.611 Acute embolism and thrombosis of superficial veins of right upper extremity; F33.9 Major depressive disorder, recurrent, unspecified; R45.851 Suicidal ideations; I10 Essential (primary) hypertension; J44.9 Chronic obstructive pulmonary disease, unspecified; Z59.0 Homelessness; F17.210 Nicotine dependence, cigarettes, uncomplicated; R48.0 Dyslexia and alexia; F95.2 Tourette's disorder; E87.6 Hypokalemia; F20.9 Schizophrenia, unspecified
CPT/HCPCS: 36415; 36569; 36600; 51702; 71045; 71250; 74150; 80048; 80053; 80185; 81001; 82550; 82803; 83605; 83735; 84132; 84443; 85025; 85027; 87040; 93005; 93010; 93971; 94760; 96361-59; 96365-59; 96375-59; 96376-59; 97116; 97162; 97166; 97530; 97535; 99285-25; A9270; C1751; G0480; J0360; J1165; J1650; J1885; J1953; J1956; J2060; J2405; J3411; J3475; J3480; J7030; J7042; J7050

== ENCOUNTER 2018-09-27 20:21 | Observation (INO) | payer MEDICARE ==
[~2018-09-27] VITALS: Ht 182.9 cm; Wt 79.4 kg
[~2018-09-27 20:21] MED LIST changes: +ACET325 PO; +FOLI1 PO; +Nicoderm Cq1 EAC1 TOP
[2018-09-27 20:46] LABS: Hematocrit 41.6 % (37.0-53.0); Hemoglobin 13.5 g/dL (13.5-17.5); Mean Corpuscular HGB 31.9 pg (26.0-34.0); Mean Corpuscular HGB Conc 32.5 g/dL (31.5-36.5); Mean Corpuscular Volume 98 fL (80-100); Mean Platelet Volume 8.8 fL (9.1-12.4); Platelet Count 420 K/mm3 (150-400); RDW Coefficient Variation 13.2 % (11.7-14.2); RDW Standard Deviation 47.8 fL (35.1-46.3); Red Blood Cell Count 4.23 M/mm3 (4.30-5.90); White Blood Cell Count 6.84 K/mm3 (4.00-11.30)
[2018-09-27 21:01] LABS: Anion Gap 8 mmol/L (6-16); Blood Urea Nitrogen 17 mg/dL (8-24); Bun/Creatinine Ratio 21.3 (12.0-20.0); CO2, Blood 26 mmol/L (21-32); Calcium, Blood 8.9 mg/dL (8.5-10.1); Chloride, Blood 110 mmol/L (98-108); Ethanol (Alcohol), Blood, Med 276 mg/dL; Glomerular Filtration Rate >60 (60-); Glucose, Blood 94 mg/dL (70-99); Potassium, Blood 4.2 mmol/L (3.5-5.5); Sodium, Blood 144 mmol/L (136-145)
== END 2018-09-28 02:41 | disposition home or self-care (01) ==
LOC: ER 20:21 → EOR 20:22
PROVIDERS: ADMIT Emergency Medicine
DX: F10.129 Alcohol abuse with intoxication, unspecified (principal); J44.9 Chronic obstructive pulmonary disease, unspecified; F17.200 Nicotine dependence, unspecified, uncomplicated; I10 Essential (primary) hypertension; F32.9 Major depressive disorder, single episode, unspecified
CPT/HCPCS: 36415; 80048; 85027; 99285; G0378; G0480

== ENCOUNTER 2018-09-29 21:58 | Observation (INO) | payer MEDICARE ==
[~2018-09-29] VITALS: Ht 165.1 cm; Wt 74.8 kg
[2018-09-29 22:37] LABS: BASOPHILS ABSOLUTE AUTO 0.12 K/mm3 (0.00-0.23); BASOPHILS PERCENT AUTO 1 % (0-2); EOSINOPHILS ABSOLUTE AUTO 0.13 K/mm3 (0.00-0.68); EOSINOPHILS PERCENT AUTO 1 % (0-6); Hematocrit 39.5 % (37.0-53.0); Hemoglobin 13.2 g/dL (13.5-17.5); IMMATURE GRAN ABSOLUTE AUTO 0.03 K/mm3 (0.00-0.10); IMMATURE GRAN PERCENT AUTO 0 % (0-1); LYMPHOCYTES PERCENT AUTO 30 % (21-46); MONOCYTES ABSOLUTE AUTO 0.75 K/mm3 (0.16-1.47); MONOCYTES PERCENT AUTO 8 % (4-13); Mean Corpuscular HGB Conc 33.4 g/dL (31.5-36.5); Mean Corpuscular Volume 96 fL (80-100); Mean Platelet Volume 8.6 fL (9.1-12.4); NEUTROPHILS ABSOLUTE AUTO 5.58 K/mm3 (1.96-9.15); NEUTROPHILS PERCENT AUTO 59 % (41-73); Platelet Count 530 K/mm3 (150-400); RDW Coefficient Variation 13.3 % (11.7-14.2); RDW Standard Deviation 47.2 fL (35.1-46.3); Red Blood Cell Count 4.13 M/mm3 (4.30-5.90); White Blood Cell Count 9.41 K/mm3 (4.00-11.30)
[2018-09-29 22:57] LABS: Alanine Aminotransfer (ALT/SGP 29 U/L (12-78); Albumin, Blood 3.9 g/dL (3.4-5.0); Albumin/Globulin Ratio 1.1 (0.8-1.8); Alk Phos 85 U/L (50-136); Anion Gap 10 mmol/L (6-16); Aspartate Aminotrans (AST/SGOT 42 U/L (12-37); Bilirubin, Total 0.5 mg/dL (0.1-1.0); Blood Urea Nitrogen 17 mg/dL (8-24); Bun/Creatinine Ratio 20.5 (12.0-20.0); CO2, Blood 24 mmol/L (21-32); Calcium, Blood 8.8 mg/dL (8.5-10.1); Chloride, Blood 106 mmol/L (98-108); Creatinine, Blood 0.83 mg/dL (0.60-1.20); Ethanol (Alcohol), Blood, Med 298 mg/dL; Globulin, Blood 3.7 g/dL (2.2-4.0); Glomerular Filtration Rate >60 (60-); Glucose, Blood 123 mg/dL (70-99); Potassium, Blood 3.3 mmol/L (3.5-5.5); Sodium, Blood 140 mmol/L (136-145); Total Protein, Blood 7.6 g/dL (6.4-8.2)
== END 2018-09-30 10:30 | disposition home or self-care (01) ==
LOC: ER 21:58 → EOR 21:59
PROVIDERS: ADMIT Emergency Medicine
DX: F10.129 Alcohol abuse with intoxication, unspecified (principal); F20.9 Schizophrenia, unspecified; F17.210 Nicotine dependence, cigarettes, uncomplicated; Z91.018 Allergy to other foods; Z79.899 Other long term (current) drug therapy; Y90.8 Blood alcohol level of 240 mg/100 ml or more
CPT/HCPCS: 70450; 80053; 85025; 96360; 96361; 96372-59; 99283; 99285-25; G0378; G0480; J1200; J1630; J7030

== ENCOUNTER 2018-10-01 00:23 | Emergency (ER) | payer MEDICARE ==
[~2018-10-01] VITALS: Ht 170.2 cm; Wt 68.0 kg
== END 2018-10-01 00:33 ==
LOC: ER 00:23
DX: F10.229 Alcohol dependence with intoxication, unspecified (principal); Z91.018 Allergy to other foods; Z79.899 Other long term (current) drug therapy; F20.9 Schizophrenia, unspecified; F17.210 Nicotine dependence, cigarettes, uncomplicated
CPT/HCPCS: 99284

== ENCOUNTER 2018-10-13 23:38 | Observation (INO) | payer MEDICARE ==
[~2018-10-13] VITALS: Ht 170.2 cm; Wt 68.0 kg
== END 2018-10-16 14:08 | disposition home or self-care (01) ==
LOC: ER 23:38 → EOR 23:40 → ER 10-14 00:30 → EOR 10-14 00:30
PROVIDERS: ADMIT Emergency Medicine
DX: F43.21 Adjustment disorder with depressed mood (principal); S61.512A Laceration without foreign body of left wrist, initial encounter; I10 Essential (primary) hypertension; J44.9 Chronic obstructive pulmonary disease, unspecified; G40.909 Epilepsy, unspecified, not intractable, without status epilepticus; F17.210 Nicotine dependence, cigarettes, uncomplicated; Z88.8 Allergy status to other drugs, medicaments and biological substances; Z79.899 Other long term (current) drug therapy
CPT/HCPCS: 36415; 71046; 80053; 81003; 84443; 85025; 87086; 99283; 99283-25; 99285; G0378; G0480; Q3014

== ENCOUNTER 2018-10-16 19:24 | Emergency (ER) | payer MEDICARE ==
[~2018-10-16] VITALS: Ht 172.7 cm; Wt 74.8 kg
== END 2018-10-16 19:38 ==
LOC: ER 19:24
DX: F10.129 Alcohol abuse with intoxication, unspecified (principal); F17.210 Nicotine dependence, cigarettes, uncomplicated
CPT/HCPCS: 99283

== ENCOUNTER 2018-11-19 18:42 | Observation (INO) | payer MEDICARE ==
[~2018-11-19] VITALS: Ht 167.6 cm; Wt 72.6 kg
[2018-11-20 05:53] LABS: BASOPHILS ABSOLUTE AUTO 0.04 K/mm3 (0.00-0.23); BASOPHILS PERCENT AUTO 1 % (0-2); EOSINOPHILS ABSOLUTE AUTO 0.13 K/mm3 (0.00-0.68); EOSINOPHILS PERCENT AUTO 3 % (0-6); Hematocrit 43.1 % (37.0-53.0); Hemoglobin 14.4 g/dL (13.5-17.5); IMMATURE GRAN ABSOLUTE AUTO 0.01 K/mm3 (0.00-0.10); IMMATURE GRAN PERCENT AUTO 0 % (0-1); LYMPHOCYTES ABSOLUTE AUTO 2.46 K/mm3 (0.84-5.20); LYMPHOCYTES PERCENT AUTO 47 % (21-46); MONOCYTES ABSOLUTE AUTO 0.37 K/mm3 (0.16-1.47); MONOCYTES PERCENT AUTO 7 % (4-13); Mean Corpuscular HGB 31.1 pg (26.0-34.0); Mean Corpuscular HGB Conc 33.4 g/dL (31.5-36.5); Mean Corpuscular Volume 93 fL (80-100); Mean Platelet Volume 8.8 fL (9.1-12.4); NEUTROPHILS PERCENT AUTO 42 % (41-73); Platelet Count 270 K/mm3 (150-400); RDW Standard Deviation 44.4 fL (35.1-46.3); Red Blood Cell Count 4.63 M/mm3 (4.30-5.90); White Blood Cell Count 5.21 K/mm3 (4.00-11.30)
[2018-11-20 06:12] LABS: Alanine Aminotransfer (ALT/SGP 19 U/L (12-78); Albumin, Blood 3.6 g/dL (3.4-5.0); Albumin/Globulin Ratio 1.1 (0.8-1.8); Alk Phos 81 U/L (50-136); Anion Gap 11 mmol/L (6-16); Aspartate Aminotrans (AST/SGOT 30 U/L (12-37); Bilirubin, Total 0.2 mg/dL (0.1-1.0); Blood Urea Nitrogen 14 mg/dL (8-24); Bun/Creatinine Ratio 12.8 (12.0-20.0); CO2, Blood 28 mmol/L (21-32); CPK Creatine Kinase 594 U/L (39-308); Calcium, Blood 8.4 mg/dL (8.5-10.1); Chloride, Blood 107 mmol/L (98-108); Creatine Kinase MB 6.8 ng/mL (0.0-3.6); Creatine Kinase MB Index 1.1 (0.0-4.0); Creatinine, Blood 1.09 mg/dL (0.60-1.20); Ethanol (Alcohol), Blood, Med 245 mg/dL; Globulin, Blood 3.4 g/dL (2.2-4.0); Glomerular Filtration Rate >60 (60-); Glucose, Blood 91 mg/dL (70-99); Magnesium, Blood 2.3 mg/dL (1.6-2.4); Potassium, Blood 3.7 mmol/L (3.5-5.5); Sodium, Blood 146 mmol/L (136-145)
== END 2018-11-20 08:47 | disposition home or self-care (01) ==
LOC: ER 18:42 → EOR 20:08
PROVIDERS: Emergency Medicine; ADMIT Emergency Medicine
DX: F10.129 Alcohol abuse with intoxication, unspecified (principal); S00.81XA Abrasion of other part of head, initial encounter; F17.210 Nicotine dependence, cigarettes, uncomplicated; Z91.018 Allergy to other foods; X58.XXXA Exposure to other specified factors, initial encounter
CPT/HCPCS: 36415; 70450; 72125; 80053; 82550; 82553; 83735; 85025; 96372; 99285-25; G0378; G0480; J1630

== ENCOUNTER 2018-12-24 22:28 | Emergency (ER) | payer MEDICARE ==
[~2018-12-24] VITALS: Ht 157.5 cm; Wt 65.8 kg
[2018-12-24 22:55] LABS: Calcium, Ionized (POC) 1.14 mmol/L (1.10-1.46); Chloride (POC) 96 mmol/L (98-108); Creatinine (POC) 1.3 mg/dL (0.8-1.3); Glucose (ISTAT POC) 89 mg/dL (70-99); Hemoglobin (POC) 14.6 g/dL (13.5-17.5); Potassium (POC) 3.5 mmol/L (3.5-5.5); Sodium (POC) 139 mmol/L (135-148); Total CO2 (POC) 32 mmol/L (21-32)
== END 2018-12-24 23:05 | disposition home or self-care (01) ==
LOC: ER 22:28
PROVIDERS: Emergency Medicine
DX: F10.129 Alcohol abuse with intoxication, unspecified (principal); Z91.018 Allergy to other foods; F17.210 Nicotine dependence, cigarettes, uncomplicated
CPT/HCPCS: 80047; 85014; 93005; 93010; 99284-25

== ENCOUNTER 2019-01-01 15:08 | Emergency (ER) | payer MEDICARE | END 2019-01-01 15:40 | disposition left against medical advice (07) | LOC: ER 15:08 | DX: Z53.21 Procedure and treatment not carried out due to patient leaving prior to being seen by health care provider (principal) ==

== ENCOUNTER 2019-01-16 17:04 | Observation (INO) | payer MEDICARE ==
[~2019-01-16] VITALS: Ht 170.2 cm; Wt 77.1 kg
[2019-01-16 18:30] LABS: Calcium, Ionized (POC) 1.12 mmol/L (1.10-1.46); Chloride (POC) 104 mmol/L (98-108); Creatinine (POC) 1.6 mg/dL (0.8-1.3); Glucose (ISTAT POC) 119 mg/dL (70-99); Hemoglobin (POC) 12.2 g/dL (13.5-17.5); Potassium (POC) 3.6 mmol/L (3.5-5.5); Sodium (POC) 144 mmol/L (135-148); Total CO2 (POC) 27 mmol/L (21-32)
== END 2019-01-17 07:45 | disposition home or self-care (01) ==
LOC: ER 17:04 → EOR 17:05
PROVIDERS: ADMIT Emergency Medicine
DX: F10.129 Alcohol abuse with intoxication, unspecified (principal); F95.2 Tourette's disorder; F20.9 Schizophrenia, unspecified; F17.210 Nicotine dependence, cigarettes, uncomplicated; Z91.018 Allergy to other foods
CPT/HCPCS: 80047; 85014; 99285; G0378

== ENCOUNTER 2019-01-17 16:18 | Emergency (ER) | payer MEDICARE ==
[~2019-01-17] VITALS: Ht 167.6 cm; Wt 68.0 kg
== END 2019-01-17 18:12 | disposition home or self-care (01) ==
LOC: ER 16:18
DX: R07.81 Pleurodynia (principal); R51 Headache; Y04.8XXA Assault by other bodily force, initial encounter; Z91.018 Allergy to other foods; F17.210 Nicotine dependence, cigarettes, uncomplicated
CPT/HCPCS: 70450; 71046; 99284-25

== ENCOUNTER 2019-01-18 22:24 | Emergency (ER) | payer MEDICARE ==
[~2019-01-18] VITALS: Ht 170.2 cm; Wt 63.5 kg
== END 2019-01-19 00:15 | disposition home or self-care (01) ==
LOC: ER 22:24
DX: F10.129 Alcohol abuse with intoxication, unspecified (principal); F17.210 Nicotine dependence, cigarettes, uncomplicated
CPT/HCPCS: 70450; 99284-25

== ENCOUNTER 2019-02-09 00:44 | Emergency (ER) | payer MEDICARE ==
[~2019-02-09] VITALS: Ht 165.1 cm; Wt 49.9 kg
== END 2019-02-09 00:58 | disposition home or self-care (01) ==
LOC: ER 00:44
DX: F10.129 Alcohol abuse with intoxication, unspecified (principal); F17.210 Nicotine dependence, cigarettes, uncomplicated; Z91.018 Allergy to other foods
CPT/HCPCS: 99283

== ENCOUNTER 2019-03-19 02:17 | Emergency (ER) | payer MEDICARE | END 2019-03-19 02:45 | disposition home or self-care (01) | LOC: ER 02:17 | DX: F10.129 Alcohol abuse with intoxication, unspecified (principal); F20.9 Schizophrenia, unspecified; Z86.19 Personal history of other infectious and parasitic diseases; Z88.8 Allergy status to other drugs, medicaments and biological substances; F17.210 Nicotine dependence, cigarettes, uncomplicated | CPT/HCPCS: 99283 ==

== ENCOUNTER 2019-03-19 10:04 | Emergency (ER) | payer MEDICARE ==
[~2019-03-19] VITALS: Ht 162.6 cm; Wt 81.7 kg
== END 2019-03-19 11:35 | disposition home or self-care (01) ==
LOC: ER 10:04
DX: F19.10 Other psychoactive substance abuse, uncomplicated (principal); F20.9 Schizophrenia, unspecified; Z86.19 Personal history of other infectious and parasitic diseases; Z88.8 Allergy status to other drugs, medicaments and biological substances; F17.210 Nicotine dependence, cigarettes, uncomplicated
CPT/HCPCS: 99284

== ENCOUNTER 2019-03-20 15:23 | Inpatient (IN) | payer MEDICARE ==
[~2019-03-20] VITALS: Ht 175.3 cm; Wt 63.9 kg
[2019-03-20 15:35] LABS: Calcium, Ionized (POC) 1.13 mmol/L (1.10-1.46); Chloride (POC) 99 mmol/L (98-108); Creatinine (POC) 1.1 mg/dL (0.8-1.3); Glucose (ISTAT POC) 396 mg/dL (70-99); Hemoglobin (POC) 13.3 g/dL (13.5-17.5); Potassium (POC) 3.3 mmol/L (3.5-5.5); Sodium (POC) 137 mmol/L (135-148); Total CO2 (POC) 20 mmol/L (21-32)
[2019-03-20 15:58] LABS: PCO2 Arterial 64.1 mmHg (35-45); PO2 Arterial 309 mmHg (80-100)
[2019-03-20 16:03] LABS: BASOPHILS ABSOLUTE AUTO 0.07 K/mm3 (0.00-0.23); BASOPHILS PERCENT AUTO 1 % (0-2); EOSINOPHILS PERCENT AUTO 2 % (0-6); Hematocrit 38.6 % (37.0-53.0); Hemoglobin 12.2 g/dL (13.5-17.5); IMMATURE GRAN PERCENT AUTO 1 % (0-1); LYMPHOCYTES ABSOLUTE AUTO 3.45 K/mm3 (0.84-5.20); LYMPHOCYTES PERCENT AUTO 29 % (21-46); MONOCYTES ABSOLUTE AUTO 0.71 K/mm3 (0.16-1.47); MONOCYTES PERCENT AUTO 6 % (4-13); Mean Corpuscular HGB 30.5 pg (26.0-34.0); Mean Corpuscular HGB Conc 31.6 g/dL (31.5-36.5); Mean Corpuscular Volume 97 fL (80-100); NEUTROPHILS PERCENT AUTO 62 % (41-73); Platelet Count 430 K/mm3 (150-400); RDW Coefficient Variation 13.5 % (11.7-14.2); RDW Standard Deviation 48.1 fL (35.1-46.3); White Blood Cell Count 11.83 K/mm3 (4.00-11.30)
[2019-03-20 16:15] LABS: Alanine Aminotransfer (ALT/SGP 23 U/L (12-78); Albumin, Blood 3.4 g/dL (3.4-5.0); Alk Phos 96 U/L (50-136); Anion Gap 19 mmol/L (6-16); Aspartate Aminotrans (AST/SGOT 24 U/L (12-37); Bilirubin, Total 0.2 mg/dL (0.1-1.0); Blood Urea Nitrogen 24 mg/dL (8-24); Bun/Creatinine Ratio 21.8 (12.0-20.0); CO2, Blood 18 mmol/L (21-32); Calcium, Blood 8.1 mg/dL (8.5-10.1); Chloride, Blood 102 mmol/L (98-108); Globulin, Blood 3.5 g/dL (2.2-4.0); Glomerular Filtration Rate >60 (60-); Glucose, Blood 398 mg/dL (70-99); Potassium, Blood 3.4 mmol/L (3.5-5.5); Sodium, Blood 139 mmol/L (136-145); Total Protein, Blood 6.9 g/dL (6.4-8.2)
[2019-03-20 17:13] LABS: Source, Urine Catheter
[2019-03-20 17:17] LABS: Bilirubin, Urine Neg (Neg); Blood, Urine 2+ (Neg); Glucose Qualitative, Urine 3+ (Neg); Ketones, Urine Neg (Neg); Leukocyte Esterase, Urine Neg (Neg); Nitrite, Urine Neg (Neg); Protein, Urine 2+ (Neg); Specific Gravity, Urine 1.025 (1.003-1.022); Urobilinogen, Urine NORM (Normal)
[2019-03-20 17:36] LABS: Appearance, Urine Hazy (Clear); Color, Urine Yellow (P-Yellow)
[2019-03-20 17:38] LABS: Amorphous Light (0-Heavy); Bacteria Few /hpf; Red Blood Cells, Urine 0-2 /hpf (0-2); Squamous Epithelial Cells Rare /hpf (Few); White Blood Cells, Urine Rare /hpf (0-5)
--- NOTE | 2019-03-20 21:30 | NUR ---
ASSUMED PT CARE FROM DENI PADILLA PT INTUBATED AND SEDATED. VENT SETTINGS: SPONTANEOUS WITH PRESSURE SUPPORT 8/5; FIO2 30%. PT RESPONDS TO NOXIOUS STIMULI BY OPENING EYES AND WITHDRAWALING FROM STIMULUS. DOES NOT FOLLOW COMMANDS. PROPOFOL AT 60MCG/KG/MIN. LACTATED RINGERS BEING BOLUSED IN PER ORDERS. OG TUBE HOOKED TO LOW INTERMITTENT SUCTION WITH BRIGHT YELLOW, BILE NOTED TO CANISTER. TEMP HOLDER PROBE PATENT AND DRAINING TO GRAVITY; CLEAR YELLOW. NO FAMILY AT BEDSIDE. WILL CONTINUE TO MONITOR.
[2019-03-20 21:45] LABS: Bicarbonate Venous 27.1 mmol/L (24.0-30.0); PCO2 Venous 50.9 mmHg (38-42); PO2 Venous 70.3 mmHg (38-42); pH Blood Venous 7.37 (7.34-7.37)
[2019-03-21 03:51] LABS: BASOPHILS ABSOLUTE AUTO 0.03 K/mm3 (0.00-0.23); BASOPHILS PERCENT AUTO 0 % (0-2); EOSINOPHILS ABSOLUTE AUTO 0.03 K/mm3 (0.00-0.68); EOSINOPHILS PERCENT AUTO 0 % (0-6); Hematocrit 31.6 % (37.0-53.0); Hemoglobin 10.5 g/dL (13.5-17.5); IMMATURE GRAN ABSOLUTE AUTO 0.03 K/mm3 (0.00-0.10); IMMATURE GRAN PERCENT AUTO 0 % (0-1); LYMPHOCYTES ABSOLUTE AUTO 1.76 K/mm3 (0.84-5.20); LYMPHOCYTES PERCENT AUTO 19 % (21-46); MONOCYTES ABSOLUTE AUTO 1.13 K/mm3 (0.16-1.47); MONOCYTES PERCENT AUTO 12 % (4-13); Mean Corpuscular HGB 30.5 pg (26.0-34.0); Mean Corpuscular HGB Conc 33.2 g/dL (31.5-36.5); Mean Platelet Volume 8.8 fL (9.1-12.4); NEUTROPHILS ABSOLUTE AUTO 6.11 K/mm3 (1.96-9.15); NEUTROPHILS PERCENT AUTO 67 % (41-73); Platelet Count 250 K/mm3 (150-400); RDW Coefficient Variation 13.3 % (11.7-14.2); RDW Standard Deviation 44.6 fL (35.1-46.3); Red Blood Cell Count 3.44 M/mm3 (4.30-5.90); White Blood Cell Count 9.09 K/mm3 (4.00-11.30)
[2019-03-21 03:54] LABS: Mean Corpuscular Volume 92 fL (80-100)
[2019-03-21 04:12] LABS: Alanine Aminotransfer (ALT/SGP 19 U/L (12-78); Albumin, Blood 3.1 g/dL (3.4-5.0); Albumin/Globulin Ratio 1.1 (0.8-1.8); Alk Phos 67 U/L (50-136); Anion Gap 6 mmol/L (6-16); Aspartate Aminotrans (AST/SGOT 25 U/L (12-37); Bilirubin, Total 0.4 mg/dL (0.1-1.0); Blood Urea Nitrogen 14 mg/dL (8-24); Bun/Creatinine Ratio 18.2 (12.0-20.0); CO2, Blood 28 mmol/L (21-32); Calcium, Blood 8.2 mg/dL (8.5-10.1); Chloride, Blood 106 mmol/L (98-108); Creatinine, Blood 0.77 mg/dL (0.60-1.20); Globulin, Blood 2.9 g/dL (2.2-4.0); Glomerular Filtration Rate >60 (60-); Glucose, Blood 104 mg/dL (70-99); Magnesium, Blood 2.1 mg/dL (1.6-2.4); Potassium, Blood 3.3 mmol/L (3.5-5.5); Sodium, Blood 140 mmol/L (136-145)
--- NOTE | 2019-03-21 07:08 | NUR ---
END OF SHIFT SUMMARY NO SIGNIFICANT CHANGES SINCE LAST ENTRY. PT SWITCHED TO AC 16, TV 450, PEEP 5, FIO2 30%. PT REMAINS ON PROPOFOL 40MCG/KG/MIN, PRECEDEX 0.2MCG/KG/HR. PT CONTINUES TO PULL AWAY AND OPEN EYES TO NOXIOUS STIMULI; HOWEVER, HE DOES NOT FOLLOW ANY COMMANDS. REMAINS IN BILATERAL SOFT WRIST RESTRAINTS TO PROTECT VITAL TUBES/LINES PT IS A HIGH RISK FOR SELF EXTUBATION. WHEN AGITATED HE BECOMES RESTLESS IN BED AND REPOSITIONS SELF. TEMP HOLDER CATHETER IS PATENT AND DRAINING TO GRAVITY; CLEAR, YELLOW URINE. NO FAMILY AT BEDSIDE. REPORT HANDED OFF TO DENI PADILLA.
--- NOTE | 2019-03-21 08:00 | NUR ---
INITIAL ASSESMENT PT INTUBATED 8.0 AT 24 ON AC SETTINGS AND TOLERATING VENT. SEDATION VIA PROPOFOL AND PRECEDX. EASILY AROUSABLE AND AGGITATED AND WILL NOT REORIENT WITH VERBAKL REDIRECTION. WILL WEAN SEDATION FOR SBT PER PROTOCOL. VSS NSR AND SBP IN THE 110S TO 120S. PALP PULSES T/O AND SCANT EDEMA. CLEAR LUNG SOUNDS BILAT WITH SMALL THICK YELLOW SECREATIONS VIA ETT. NG TO LWS WITH YELLOW BILE DISCHARGE. UO ADEQUATE VIA HOLDER CLEAR AND YELLOW. WILL CONT TO MONITOR.
--- NOTE | 2019-03-21 15:00 | NUR ---
PT UPDATE PT EXTUBATED WITH PROPOFOL OFF AND PRECEDEX REMAINS. PT YELLING OUT AND CONFUSED AT TIMES AND REORIENT. LIBRIUM PRN GIVEN VIA NG TUBE. PRECEDEX TITRATED PER MD ORDER. REMAINS RESTRAINED RELATED TO HIGH RISK OF DISLODGING TUBES AND LINES. SR, VSS, AFEBRILE AND PALP PULSES. RA CLEAR T/O AND SATS WNL. NG TUBE IN PLCE TO LWS, ABD SOFT FLAT AND NON TENDER. HOLDER IN PLACE DRAINING CLEAR AND YELLOW URINE. MD BEDSIDE. WILL CONT TO MONITOR
--- NOTE | 2019-03-21 19:28 | NUR ---
ASSUMED CARE OF PT AT 1915. CALM VITALS WNL. HOLDER , NG, AND 2-POINT SOFT RESTRAINTS IN PLACE. PRECEDEX RUNNING.
--- NOTE | 2019-03-22 00:37 | NUR ---
PT ASKING QUESTIONS, REDIRECTABLE STILL CONFUSED.
--- NOTE | 2019-03-22 01:47 | NUR ---
PATIENT SCREAMING "NO" WHILE SLEEPING. HOLDER WAS ACTIVELY FLOWING AT SAME TIME. PT DENIED PAIN,SOB,CHEST PAIN. PULLED LIBRIUM, WENT TO GIVE MED AND PATIENT WAS NO LONGER SCREAMING. PT WAS CALM AND SLEEPING, HOLDER WAS NO LONGER ACTIVE FLOWING. VITAL SIGNS WNL. RETURNED LIBRIUM TO [facility]
--- NOTE | 2019-03-22 07:10 | NUR ---
PT REMAINED IN BED, VITAL WNL,HOLDER IN PLACE PT IS CONFUSED AND SEEING "MIDGETS" ON CEILING. PRECEDEX RUNNING @ 19.2ML/HR. PT HAD A FEVER,TYLENOL GIVEN PATIENT TEMP NOW 97.2. ORAL CARE COMPLETE, NO OTHER ACUTE EVENTS, WILL CONTINUE TO MONITOR
--- NOTE | 2019-03-22 15:40 | NUR ---
ASSUMED CARE OF PATIENT AT ~1515. A&O X 3, COOPERATIVE. HRR, LUNGS CTAB WITH VERY FINE CRACKLES IN RLL. SKIN INTACT. C/O GENERALIZED DISCOMFORT, NON SPECIFIC. BS ACTIVE X 4. HOLDER CATHETER DRAINING DARK YELLOW URINE. PLAN IS TO TRANSFER TO MEDICAL FLOOR WHEN BED AVAILABLE.
--- NOTE | 2019-03-22 17:21 | NUR ---
ARRIVES VIA W/C FROM ICU. REPORT FROM ELOISA CHEEMA. IV RT HAND. RESPONSES ARE SLOW BUT APPROPRIATE. WEAK AND ADVISED TO LET US KNOW WHEN HE NEEDS TO GET UP. ORIENTED TO ROOM. LUNGS CLEAR. UNLABORED RESPIRATIONS ON R.A. HANDS SWOLLEN. HOLDER D'C IN ICU. USES URINAL. BED IN LOW POSITION. CALL LIGHT WITHIN REACH. [facility]
--- NOTE | 2019-03-22 18:37 | NUR ---
ALERT. UNLABORED RESPIRATIONS. ON R.A. NO TELE. WEAK BUT TRIES TO DO DIPS WHILE HOLDING WALKER. LUNGS CLEAR. WCTM
--- NOTE | 2019-03-22 20:35 | NUR ---
PT MAKING SUICIDAL STATEMENTS TO TYPE PROOF REPRODUCER, ASKING FOR A KNIFE TO SLIT HIS THROAT. SUICIDE ASSESSMENT COMPLETED. SCORED MODERATE RISK. WILL NOTFY PROVIDER.
--- NOTE | 2019-03-22 20:55 | NUR ---
PT PLACED ON MODERATE RISK SI PRECAUTIONS -- VIDEO MONITORING TAKING PLACE. PT ALSO HAS REDNESS AND SWELLING TO L HAND. OLD ABRASION TO L HAND. PT ABLE TO MOVE FINGERS AND SENSATION INTACT. NOTIFIED TYSON JUAN. TO COME AND ASSESS PATIENT.
--- NOTE | 2019-03-22 22:40 | NUR ---
BEGINNING SHIFT SUMMARY ASSUMED CARE OF PT AT 1900. PT WAS LYING IN BED, PT REPORTED FEELING SUICIDAL TO THE LOG CUT OFF SAWYER, HOSPITALIST CALLED AND PUT ON SUICIDE PRECAUTIONS, ALL CORDS TAKEN AND BAGS CHANGED, PT ASSESSED TO BE AT A MODERATE RISK, PT PLACED ON MONITOR. HEART SOUNDS REGULAR, LUNG SOUNDS CLEAR. PT STATES HE HAS PAIN IN HIS HIPS AND HIS L HAND IS SWOLLEN AND TENDER TO TOUCH, HOSPIATALIST NOTIFIED AND STATED THEY WOULD COME AND LOOK AT IT. PT C/O THROAT PAIN, MEDICATED PER EMAR. PT IS CURRENTLY SLEEPING, CALL LIGHT IN REACH, BED IN LOWEST POSTION, BED ALARM ON, WILL CONTINUE TO MONITOR.
--- NOTE | 2019-03-23 01:32 | NUR ---
PT C/O OF BODY PAIN, MOSTLY TO L ARM, BLE, AND CHEST. PAIN WITH ANY MOVEMENT. REPORTED TO [facility]. EKG X1 TO R/O CARDIAC ETIOLOGY. TYLENOL PER EMAR. L ARM CONT TO BE RED AND SWOLLEN. ICE AND ELEVATE. WILL CONT TO MONITOR.
--- NOTE | 2019-03-23 01:49 | NUR ---
EKG NORMAL SINUS RHYTHM AT 96.
--- NOTE | 2019-03-23 05:26 | NUR ---
END SHIFT SUMMARY PT AWOKE DURING THE NIGHT C/O CHEST PAIN AND ARM PAIN. EKG WAS UNEVENTFUL, DOCTOR CALLED AND NOTIFIED, HOSPITALIST STATED TO USE ICE AND ELEVATION ON HIS ARM AND TO MEDICATE WITH TYLENOL. PT SLEPT T/O AFTER THIS EVENT. CALL LIGHT IN REACH, BED IN LOWEST POSTION, WILL CONTINUE TO MONITOR UNTIL DAYSHIFT NURSE ARRIVES.
[2019-03-23 12:14] LABS: Hematocrit 37.9 % (37.0-53.0); Hemoglobin 12.3 g/dL (13.5-17.5); Mean Corpuscular HGB 29.7 pg (26.0-34.0); Mean Corpuscular HGB Conc 32.5 g/dL (31.5-36.5); Mean Corpuscular Volume 92 fL (80-100); Mean Platelet Volume 9.2 fL (9.1-12.4); Platelet Count 266 K/mm3 (150-400); RDW Coefficient Variation 13.2 % (11.7-14.2); RDW Standard Deviation 43.7 fL (35.1-46.3); Red Blood Cell Count 4.14 M/mm3 (4.30-5.90); White Blood Cell Count 6.61 K/mm3 (4.00-11.30)
[2019-03-23 12:40] LABS: Anion Gap 7 mmol/L (6-16); Blood Urea Nitrogen 13 mg/dL (8-24); Bun/Creatinine Ratio 19.7 (12.0-20.0); CO2, Blood 25 mmol/L (21-32); Calcium, Blood 8.5 mg/dL (8.5-10.1); Chloride, Blood 104 mmol/L (98-108); Creatinine, Blood 0.66 mg/dL (0.60-1.20); Glomerular Filtration Rate >60 (60-); Glucose, Blood 100 mg/dL (70-99); Potassium, Blood 3.7 mmol/L (3.5-5.5); Sodium, Blood 136 mmol/L (136-145)
--- NOTE | 2019-03-23 17:16 | NUR ---
SUMMARY PT RESTING QUIETLY IN BED, WAKES EASILY, HAS BEEN DEPRESSED TODAY, HAS EXPRESSED SUICIDAL IDEATION, WHEN ASKED IF HE HAS A PLAN, HE STATES, "I'LL JUMP OFF A HIGHWAY OVERPASS" PT MED WITH TYLENOL AND LIBRIUM PER EMAR, PT STATES HE WILL NOT HARM HIMSELF WHILE HERE IN THE HOSPITAL, PT HAS BEEN COOPERATIVE WITH CARE AND WITH STAFF, VSS, NO ACUTE CHANGES, WILL CONT TO MONITOR
--- NOTE | 2019-03-23 21:08 | NUR ---
SUICIDE REASSESSMENT PT STATED THAT HE IS FEELING REALLY DEPRESSED TODAY. PT STATES THAT HE WANTS THIS NURSE TO GIVE HIM A GUN TO KILL HIMSELF, PT STATES THAT HE DOESNT LIKE FEELING THIS WAY BUT WONT HURT HIMSELF IN THE HOSPITAL. CALL LIGHT INREACH, BED IN LOWEST POSITION, BED ALARM ON, VIDEO SURVALENCE NOTIFIED, WILL CONTINUE TO MONITOR.
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
--- NOTE | 2019-03-24 04:53 | NUR ---
END SHIFT SUMMARY NO ACUTE CHANGES T/O THE NIGHT. PT SLEPT T/O THE NIGHT WITH NO PAINFUL OR SUICIDAL EVENTS. CALL LIGHT IN REACH, BED IN LOWEST POSTION, WILL CONTINUE TO MONITOR UNTIL DAYSHIFT NURSE ARRIVES.
--- NOTE | 2019-03-24 17:30 | NUR ---
SUMMARY PT RESTING QUIETLY IN BED, WAKES EASILY, HAS SLEPT OFF AND ON FOR MOST OF THE DAY, PT STILL EXPRESSES SUICIDAL IDEATION, VSS, NO ACUTE CHANGES, WILL CONT TO MONITOR
--- NOTE | 2019-03-24 22:45 | NUR ---
BEGINNING SHIFT SUMMARY ASSUMED CARE OF PT AT 1900. PT WAS LYING IN BED SLEEPING. PT IS STILL SUICIDAL AND WANTS TO JUMP OFF A BRIDGE IF HE LEFT THE HOSPITAL. PT C/O GAS PAIN, ABDOMEN MODERATLY DISTENDED AND FIRM ON PALPIATION, THIS NURSE ASKED THE PT IF HE WOULD LIKE TO GET UP TO THE BEATHROOM BUT THE PT REFUSED SAYING HE JUST WANTED TO SLEEP, HOSPITALIST NOTIFIED AND MEDICATIONS PRESCRIBED. HEART SOUNDS REGULAR, LUNG SOUNDS CLEAR. PT CAN NOW USE R HAND TO TAKE MEDICATIONS AND HOLD OBJECTS. PT IS CURRENTLY SLEEPING, CALL LIGHT IN REACH, BED IN LOWEST POSTION, BED ALARM ON, WILL CONTINUE TO MONITOR.
--- NOTE | 2019-03-25 04:46 | NUR ---
END SHIFT SUMMARY PT SLEPT T/O THE NIGHT. PT DID NOT C/O PAIN OR SOB. CALL LIGHT IN REACH, BED IN LOWEST POSTOIN, BED ALARM ON, WILL CONTINUE TO MONITOR UNTIL DAYSHIFT NURSE ARRIVES.
--- NOTE | 2019-03-25 18:03 | NUR ---
SHIFT SUMMARY. A&OX3, PT USES URINAL AT BEDSIDE. PT DENIES N/V, SOB. PT REPORTS INTERMITTENT ABD AND THROAT PAIN. PRN CEPACOL GIVEN ALONG WITH WARM TEA WITH HONEY, PT REPORTS RELIEF. DR. BECKHAM IN TO EVALUATE PT THIS AFTERNOON, SUICIDE RISK DOWNGRADED TO LOW, PT TO START ZYPREXA 5MG PO QHS TONIGHT. PT WITH FLAT AFFECT AND DEPRESSED MOOD DURING SHIFT. NO NEW CHANGES OR CONCERNS.
--- NOTE | 2019-03-26 05:41 | NUR ---
SHIFT SUMMARY- NO ACUTE CHANGES OVERNIGHT. PT. ASLEEP T/O THE SHIFT, NO APPARENT DISTRESS NOTED. PT. C/O SORE THROAT 1X. MEDICATED PER EMAR. DENIED ANY OTHER NEEDS DURING THE NIGHT. CALL LIGHT WITHIN REACH AND SIDE RAILS UP X2. WILL CONT TO MONITOR.
--- NOTE | 2019-03-26 12:16 | NUR ---
1130 PT REPORTED THAT HE WOULD LIKE TO D/C TODAY. CALLED DR. MONTAÑO AND LEFT MESSAGE. 1145 PT REPORTED THAT HE REALIZED IT WAS JAVY GUILLERMO AND THAT HE WOULD PROBABLY "JUMP OFF A BRIDGE" IF HE LEFT TODAY. [address] MONTAÑO OF WHAT PT HAD REPORTED.
--- NOTE | 2019-03-26 17:08 | NUR ---
SHIFT SUMMARY. A&OX3, SBA TO BATHROOM WIT FWW AND GB, USES URINAL AT BEDSIDE. PT DENIES N/V, SOB. GOOD MEAL INTAKE. PT REPORTS INTERMITTENT GAS LIKE PAIN TO ABD, DENIES NEED FOR SIMETHACONE. PT REPORTS PAIN TO L HAND, DENIES NEED FOR PAIN MEDICATION, L HAND SWELLING REDUCED FROM YESTERDAY, NO REDNESS, PT REPORTS INCREASED ROM OF L FINGERS. NO NEW CHANGES OR CONCERNS.
--- NOTE | 2019-03-27 05:06 | NUR ---
SHIFT SUMMARY- NO ACUTE CHANGES OVERNIGHT. PT. C/O GAS PAINS. MEDICATED PER EMAR, WITH GOOD RELIEF. PT. SLEPT COMFORTABLY IN BED T/O THE NIGHT, NO APPARENT DISTRESS NOTED. CALL LIGHT WITHIN REACH AND SIDE RAILS UP X2. WILL CONT TO MONITOR.
--- NOTE | 2019-03-27 16:21 | NUR ---
SHIFT SUMMARY: PT HAS BEEN A/O X 4 WITH NO C/O PAIN OR DISCOMFORT AND DENIES SELF HARM. HE REMAINS VISIBLE ON THE CAMERA PER THE REMOTE COFFEE SAMPLER. SWELLING REMAINS TO THE LEFT HAND. PT USES THE URINAL AT THE BEDSIDE. HE WAS ASSISTED WITH A SHOWER THIS MORNING. HE WAS FOUND TO HAVE A WARM, RED, RAISED RASH TO BILAT FLANKS. THE DOCTOR WAS NOTIFIED AND SAW THE PT AT THE BEDSIDE AND CREAM WAS APPLIED ORDERED. PT REQUESTED THAT HIS PERIPHERAL IV BE REMOVED AND THE DOCTOR SAID IT WAS OK TO TAKE OUT AND LEAVE OUT SINCE HE IS NO LONGER RECEIVING ANY IV MEDS AT THIS TIME. PT HAS A GOOD APPETITE. PT REQUESTED A NICOTINE PATCH AND ONE WAS PLACED ORDERED. PT IS ABLE TO MAKE HIS NEEDS KNOWN AND CALLS APPROPRIATELY FOR HELP WHEN NEEDED.
--- NOTE | 2019-03-28 06:06 | NUR ---
WIRE HANGER SUMMARY patient slept well overnight. no complaints of discomfort. voiding well in urinal. patient very upbeat and friendly. states looking forward to discharge and seeing his brother in [place]. left hand very swollen. no bruising, sensitive to gentle touch. patient unsure when it started swelling.
[2019-03-28] MEDS ORDERED: ACET325 PO (10:37)
[2019-03-28] MEDS ORDERED: FOLI1 PO (10:39)
[2019-03-28] MEDS ORDERED: CEPH500 PO (10:39)
[2019-03-28] MEDS ORDERED: LEVE500 PO (10:40)
[2019-03-28] MEDS ORDERED: OLAN5 PO (10:40)
--- NOTE | 2019-03-28 11:38 | NUR ---
DC ORDERS WERE GIVEN BY PROVIDER THIS MORNING. THE PROCEDURE NURSE COMPLETED THE DC AND REVIEWED ALL MEDS AND INSTRUCTIONS WITH THE PT. RX FAXED TO PT PHARMACY OF CHOICE. PT VERBALIZED AN UNDERSTANDING OF HIS INSTRUCTIONS. ALL PERSONAL BELONGINGS SENT WITH PT. PT HAD NO IV ACCESS. PT STABLE UPON DC.
== END 2019-03-28 11:39 | disposition home or self-care (01) | DRG 896 ==
LOC: ER 15:23 → ICUW 16:33 → MEDS 16:33 → ICUE 16:33 → MEDS 03-22 17:00 → ENPENDDIS 03-28 11:26 → MEDS 03-28 11:39
PROVIDERS: Emergency Medicine; Internal Medicine; Internal Medicine Critical Care Medicine; ADMIT Internal Medicine
PROC: 0BH17EZ Insertion of Endotracheal Airway into Trachea, Via Natural or Artificial Opening (ICD-10-PCS; principal; 2019-03-20)
PROC: 5A1945Z Respiratory Ventilation, 24-96 Consecutive Hours (ICD-10-PCS; 2019-03-20)
DX: F10.239 Alcohol dependence with withdrawal, unspecified (principal); J96.01 Acute respiratory failure with hypoxia; R45.851 Suicidal ideations; F33.3 Major depressive disorder, recurrent, severe with psychotic symptoms; L03.114 Cellulitis of left upper limb; J44.9 Chronic obstructive pulmonary disease, unspecified; I10 Essential (primary) hypertension; Z87.820 Personal history of traumatic brain injury; D47.3 Essential (hemorrhagic) thrombocythemia; Z59.0 Homelessness; F15.10 Other stimulant abuse, uncomplicated; R56.9 Unspecified convulsions
CPT/HCPCS: 31500; 31720; 36415; 36600; 51702; 70450; 71045; 71046; 73100; 73120; 80047; 80048; 80053; 81001; 82803; 83605; 83735; 84100; 84145; 85014; 85025; 85027; 87040; 87070; 87186; 87205; 93005; 93010; 94002; 94003; 94640; 94760; 96365-59; 96375-59; 97110; 97162; 99284; 99291-25; 99292; A9270; A9270-GY; G0480; J1165; J1650; J2060; J2250; J2543; J2560; J2704; J3010; J7050; J7120

== ENCOUNTER 2019-03-29 14:18 | Emergency (ER) | payer MEDICARE ==
[~2019-03-29] VITALS: Ht 170.2 cm; Wt 65.8 kg
[~2019-03-29 14:18] MED LIST changes: +CEPH500 PO; +OLAN5 PO
== END 2019-03-29 15:28 | disposition home or self-care (01) ==
LOC: ER 14:18
DX: F32.9 Major depressive disorder, single episode, unspecified (principal); F10.10 Alcohol abuse, uncomplicated; F19.10 Other psychoactive substance abuse, uncomplicated; F20.9 Schizophrenia, unspecified; I10 Essential (primary) hypertension; J44.9 Chronic obstructive pulmonary disease, unspecified; F17.200 Nicotine dependence, unspecified, uncomplicated; Z91.018 Allergy to other foods; Z79.899 Other long term (current) drug therapy
CPT/HCPCS: 99284

== ENCOUNTER 2019-03-31 15:02 | Emergency (ER) | payer MEDICARE ==
[~2019-03-31] VITALS: Ht 170.2 cm; Wt 68.0 kg
== END 2019-03-31 15:18 | disposition home or self-care (01) ==
LOC: ER 15:02
DX: J44.9 Chronic obstructive pulmonary disease, unspecified (principal); F20.9 Schizophrenia, unspecified; F10.20 Alcohol dependence, uncomplicated; F32.9 Major depressive disorder, single episode, unspecified; I10 Essential (primary) hypertension; F17.200 Nicotine dependence, unspecified, uncomplicated; Z79.899 Other long term (current) drug therapy; Z88.8 Allergy status to other drugs, medicaments and biological substances
CPT/HCPCS: 99283

== ENCOUNTER 2019-04-03 09:39 | Emergency (ER) | payer MEDICARE ==
[~2019-04-03] VITALS: Ht 160 cm; Wt 65.8 kg
== END 2019-04-03 10:30 | disposition home or self-care (01) ==
LOC: ER 09:39
DX: R07.89 Other chest pain (principal); Z91.09 Other allergy status, other than to drugs and biological substances; Z79.899 Other long term (current) drug therapy
CPT/HCPCS: 99283

== ENCOUNTER 2019-04-12 20:33 | Observation (INO) | payer MEDICARE ==
[~2019-04-12] VITALS: Ht 165.1 cm; Wt 49.9 kg
[2019-04-13 02:03] LABS: Magnesium, Blood 2.2 mg/dL (1.6-2.4)
[2019-04-13 02:22] LABS: BASOPHILS ABSOLUTE AUTO 0.02 K/mm3 (0.00-0.23); BASOPHILS PERCENT AUTO 0 % (0-2); EOSINOPHILS ABSOLUTE AUTO 0.09 K/mm3 (0.00-0.68); EOSINOPHILS PERCENT AUTO 1 % (0-6); Hematocrit 41.3 % (37.0-53.0); Hemoglobin 13.3 g/dL (13.5-17.5); IMMATURE GRAN ABSOLUTE AUTO 0.02 K/mm3 (0.00-0.10); IMMATURE GRAN PERCENT AUTO 0 % (0-1); LYMPHOCYTES ABSOLUTE AUTO 1.85 K/mm3 (0.84-5.20); LYMPHOCYTES PERCENT AUTO 28 % (21-46); MONOCYTES ABSOLUTE AUTO 0.73 K/mm3 (0.16-1.47); MONOCYTES PERCENT AUTO 11 % (4-13); Mean Corpuscular HGB 29.8 pg (26.0-34.0); Mean Corpuscular HGB Conc 32.2 g/dL (31.5-36.5); Mean Corpuscular Volume 92 fL (80-100); NEUTROPHILS ABSOLUTE AUTO 3.94 K/mm3 (1.96-9.15); NEUTROPHILS PERCENT AUTO 59 % (41-73); Platelet Count 305 K/mm3 (150-400); RDW Coefficient Variation 13.5 % (11.7-14.2); Red Blood Cell Count 4.47 M/mm3 (4.30-5.90); White Blood Cell Count 6.65 K/mm3 (4.00-11.30)
== END 2019-04-13 06:34 | disposition home or self-care (01) ==
LOC: ER 20:33 → EOR 20:34
PROVIDERS: ADMIT Emergency Medicine
DX: F10.129 Alcohol abuse with intoxication, unspecified (principal); R45.851 Suicidal ideations; F17.210 Nicotine dependence, cigarettes, uncomplicated; F95.2 Tourette's disorder; F20.9 Schizophrenia, unspecified; F80.81 Childhood onset fluency disorder; Z86.69 Personal history of other diseases of the nervous system and sense organs; Z91.018 Allergy to other foods; Z79.899 Other long term (current) drug therapy; Y90.7 Blood alcohol level of 200-239 mg/100 ml
CPT/HCPCS: 36415; 83735; 85025; 99285; G0378; G0480

== ENCOUNTER 2019-04-15 19:54 | Emergency (ER) | payer MEDICARE ==
[~2019-04-15] VITALS: Ht 165.1 cm; Wt 68.0 kg
[2019-04-15 20:32] LABS: BASOPHILS ABSOLUTE AUTO 0.04 K/mm3 (0.00-0.23); BASOPHILS PERCENT AUTO 1 % (0-2); EOSINOPHILS ABSOLUTE AUTO 0.12 K/mm3 (0.00-0.68); EOSINOPHILS PERCENT AUTO 2 % (0-6); Hematocrit 42.6 % (37.0-53.0); Hemoglobin 13.6 g/dL (13.5-17.5); IMMATURE GRAN ABSOLUTE AUTO 0.02 K/mm3 (0.00-0.10); IMMATURE GRAN PERCENT AUTO 0 % (0-1); LYMPHOCYTES ABSOLUTE AUTO 2.55 K/mm3 (0.84-5.20); LYMPHOCYTES PERCENT AUTO 42 % (21-46); MONOCYTES ABSOLUTE AUTO 0.38 K/mm3 (0.16-1.47); MONOCYTES PERCENT AUTO 6 % (4-13); Mean Corpuscular HGB 29.6 pg (26.0-34.0); Mean Corpuscular HGB Conc 31.9 g/dL (31.5-36.5); Mean Corpuscular Volume 93 fL (80-100); Mean Platelet Volume 9.4 fL (9.1-12.4); NEUTROPHILS PERCENT AUTO 49 % (41-73); Platelet Count 295 K/mm3 (150-400); RDW Coefficient Variation 13.5 % (11.7-14.2); RDW Standard Deviation 46.6 fL (35.1-46.3); White Blood Cell Count 6.11 K/mm3 (4.00-11.30)
[2019-04-15 20:51] LABS: Troponin I <0.015 ng/mL (0.000-0.040)
[2019-04-15 21:15] LABS: Alanine Aminotransfer (ALT/SGP 26 U/L (12-78); Alk Phos 100 U/L (50-136); Anion Gap 10 mmol/L (6-16); Aspartate Aminotrans (AST/SGOT 19 U/L (12-37); Bilirubin, Total <0.1 mg/dL (0.1-1.0); Blood Urea Nitrogen 16 mg/dL (8-24); Bun/Creatinine Ratio 23.6 (12.0-20.0); CO2, Blood 24 mmol/L (21-32); Calcium, Blood 8.6 mg/dL (8.5-10.1); Chloride, Blood 109 mmol/L (98-108); Creatinine, Blood 0.68 mg/dL (0.60-1.20); Globulin, Blood 4.1 g/dL (2.2-4.0); Glomerular Filtration Rate >60 (60-); Glucose, Blood 95 mg/dL (70-99); Potassium, Blood 4.2 mmol/L (3.5-5.5); Sodium, Blood 143 mmol/L (136-145); Total Protein, Blood 8.1 g/dL (6.4-8.2)
== END 2019-04-15 23:00 | disposition home or self-care (01) ==
LOC: ER 19:54
PROVIDERS: Physician Assistant
DX: R07.9 Chest pain, unspecified (principal); F10.10 Alcohol abuse, uncomplicated; F20.9 Schizophrenia, unspecified; Z79.899 Other long term (current) drug therapy; Z88.8 Allergy status to other drugs, medicaments and biological substances; F17.210 Nicotine dependence, cigarettes, uncomplicated
CPT/HCPCS: 36415; 71046; 80053; 84484; 85025; 93005; 93010; 99284-25

== ENCOUNTER 2019-04-21 19:42 | Observation (INO) | payer MEDICARE ==
[~2019-04-21] VITALS: Ht 172.7 cm; Wt 74.8 kg
== END 2019-04-22 02:43 | disposition home or self-care (01) ==
LOC: ER 19:42 → EOR 19:43
PROVIDERS: ADMIT Emergency Medicine
DX: F10.229 Alcohol dependence with intoxication, unspecified (principal); F17.210 Nicotine dependence, cigarettes, uncomplicated; F32.9 Major depressive disorder, single episode, unspecified; F20.9 Schizophrenia, unspecified; J44.9 Chronic obstructive pulmonary disease, unspecified; I10 Essential (primary) hypertension; Z86.69 Personal history of other diseases of the nervous system and sense organs; Z91.018 Allergy to other foods; Z79.899 Other long term (current) drug therapy; Y90.9 Presence of alcohol in blood, level not specified
CPT/HCPCS: 99285; G0378

== ENCOUNTER 2019-05-30 18:50 | Emergency (ER) | payer MEDICARE ==
[~2019-05-30] VITALS: Ht 170.2 cm; Wt 68.0 kg
[2019-05-30 19:42] LABS: Hematocrit 39.2 % (37.0-53.0); Hemoglobin 13.1 g/dL (13.5-17.5); Mean Corpuscular HGB 29.9 pg (26.0-34.0); Mean Corpuscular HGB Conc 33.4 g/dL (31.5-36.5); Mean Corpuscular Volume 90 fL (80-100); Mean Platelet Volume 9.2 fL (9.1-12.4); Platelet Count 363 K/mm3 (150-400); RDW Coefficient Variation 14.2 % (11.7-14.2); RDW Standard Deviation 47.3 fL (35.1-46.3); Red Blood Cell Count 4.38 M/mm3 (4.30-5.90); White Blood Cell Count 7.07 K/mm3 (4.00-11.30)
[2019-05-30 20:06] LABS: Anion Gap 10 mmol/L (6-16); Blood Urea Nitrogen 22 mg/dL (8-24); Bun/Creatinine Ratio 21.6 (12.0-20.0); CO2, Blood 25 mmol/L (21-32); Calcium, Blood 8.5 mg/dL (8.5-10.1); Chloride, Blood 107 mmol/L (98-108); Creatinine, Blood 1.02 mg/dL (0.60-1.20); Glomerular Filtration Rate >60 (60-); Glucose, Blood 101 mg/dL (70-99); Potassium, Blood 3.3 mmol/L (3.5-5.5); Sodium, Blood 142 mmol/L (136-145)
[2019-05-30 20:07] LABS: Ethanol (Alcohol), Blood, Med 361 mg/dL
== END 2019-05-30 21:54 | disposition home or self-care (01) ==
LOC: ER 18:50
PROVIDERS: Emergency Medicine
DX: F10.229 Alcohol dependence with intoxication, unspecified (principal); J44.9 Chronic obstructive pulmonary disease, unspecified; I10 Essential (primary) hypertension; F32.9 Major depressive disorder, single episode, unspecified; F17.200 Nicotine dependence, unspecified, uncomplicated
CPT/HCPCS: 80048; 85027; 99285; G0480

== ENCOUNTER 2019-06-07 18:46 | Emergency (ER) | payer MEDICARE ==
[~2019-06-07] VITALS: Ht 170.2 cm; Wt 72.6 kg
== END 2019-06-07 21:30 | disposition home or self-care (01) ==
LOC: ER 18:46
DX: F10.229 Alcohol dependence with intoxication, unspecified (principal); J44.9 Chronic obstructive pulmonary disease, unspecified; I10 Essential (primary) hypertension; F32.9 Major depressive disorder, single episode, unspecified; F17.200 Nicotine dependence, unspecified, uncomplicated
CPT/HCPCS: 36415; 99285; G0480

== ENCOUNTER 2019-06-12 18:52 | Emergency (ER) | payer MEDICARE ==
[~2019-06-12] VITALS: Ht 167.6 cm; Wt 65.8 kg
[2019-06-12] MEDS ORDERED: Ultram50 MG PO (19:17)
== END 2019-06-12 19:30 | disposition home or self-care (01) ==
LOC: ER 18:52
DX: S20.211A Contusion of right front wall of thorax, initial encounter (principal); J44.9 Chronic obstructive pulmonary disease, unspecified; I10 Essential (primary) hypertension; F32.9 Major depressive disorder, single episode, unspecified; F10.20 Alcohol dependence, uncomplicated; F20.9 Schizophrenia, unspecified; F17.200 Nicotine dependence, unspecified, uncomplicated; X58.XXXA Exposure to other specified factors, initial encounter
CPT/HCPCS: 71046; 99283-25

== ENCOUNTER 2019-06-25 00:49 | Observation (INO) | payer MEDICARE ==
[~2019-06-25] VITALS: Ht 185.4 cm; Wt 95.2 kg
== END 2019-06-25 05:39 | disposition home or self-care (01) ==
LOC: ER 00:49 → EOR 02:40
PROVIDERS: ADMIT Emergency Medicine
DX: F10.129 Alcohol abuse with intoxication, unspecified (principal); S01.21XA Laceration without foreign body of nose, initial encounter; W18.30XA Fall on same level, unspecified, initial encounter; J44.9 Chronic obstructive pulmonary disease, unspecified; G40.909 Epilepsy, unspecified, not intractable, without status epilepticus; I10 Essential (primary) hypertension; F32.9 Major depressive disorder, single episode, unspecified; F17.200 Nicotine dependence, unspecified, uncomplicated; Z79.899 Other long term (current) drug therapy; Z91.018 Allergy to other foods; Z59.0 Homelessness; Y90.9 Presence of alcohol in blood, level not specified
CPT/HCPCS: 70450; 82947; 99285-25

== ENCOUNTER 2019-06-26 13:39 | Emergency (ER) | payer MEDICARE ==
[~2019-06-26] VITALS: Ht 170.2 cm; Wt 74.8 kg
== END 2019-06-26 15:54 | disposition home or self-care (01) ==
LOC: ER 13:39
DX: F10.129 Alcohol abuse with intoxication, unspecified (principal); Z59.0 Homelessness; F20.9 Schizophrenia, unspecified; J44.9 Chronic obstructive pulmonary disease, unspecified; I10 Essential (primary) hypertension; F32.9 Major depressive disorder, single episode, unspecified; Z86.19 Personal history of other infectious and parasitic diseases; Z88.8 Allergy status to other drugs, medicaments and biological substances; Z79.899 Other long term (current) drug therapy; F17.210 Nicotine dependence, cigarettes, uncomplicated
CPT/HCPCS: 99284

== ENCOUNTER 2019-06-26 18:58 | Emergency (ER) | payer MEDICARE ==
[~2019-06-26] VITALS: Ht 165.1 cm; Wt 72.6 kg
== END 2019-06-26 21:34 | disposition home or self-care (01) ==
LOC: ER 18:58
DX: F10.129 Alcohol abuse with intoxication, unspecified (principal); F20.9 Schizophrenia, unspecified; J44.9 Chronic obstructive pulmonary disease, unspecified; I10 Essential (primary) hypertension; F32.9 Major depressive disorder, single episode, unspecified; F17.210 Nicotine dependence, cigarettes, uncomplicated; Z79.899 Other long term (current) drug therapy
CPT/HCPCS: 99284

== ENCOUNTER 2019-06-28 20:00 | Observation (INO) | payer MEDICARE ==
[~2019-06-28] VITALS: Ht 167.6 cm; Wt 70.3 kg
[2019-06-28 21:18] LABS: BASOPHILS ABSOLUTE AUTO 0.06 K/mm3 (0.00-0.23); BASOPHILS PERCENT AUTO 1 % (0-2); EOSINOPHILS ABSOLUTE AUTO 0.04 K/mm3 (0.00-0.68); EOSINOPHILS PERCENT AUTO 1 % (0-6); Hematocrit 38.1 % (37.0-53.0); Hemoglobin 12.5 g/dL (13.5-17.5); IMMATURE GRAN ABSOLUTE AUTO 0.05 K/mm3 (0.00-0.10); IMMATURE GRAN PERCENT AUTO 1 % (0-1); LYMPHOCYTES ABSOLUTE AUTO 1.39 K/mm3 (0.84-5.20); LYMPHOCYTES PERCENT AUTO 23 % (21-46); MONOCYTES ABSOLUTE AUTO 0.31 K/mm3 (0.16-1.47); MONOCYTES PERCENT AUTO 5 % (4-13); Mean Corpuscular HGB 30.2 pg (26.0-34.0); Mean Corpuscular HGB Conc 32.8 g/dL (31.5-36.5); Mean Corpuscular Volume 92 fL (80-100); Mean Platelet Volume 8.5 fL (9.1-12.4); NEUTROPHILS ABSOLUTE AUTO 4.34 K/mm3 (1.96-9.15); NEUTROPHILS PERCENT AUTO 70 % (41-73); Platelet Count 439 K/mm3 (150-400); RDW Coefficient Variation 14.2 % (11.7-14.2); Red Blood Cell Count 4.14 M/mm3 (4.30-5.90); White Blood Cell Count 6.19 K/mm3 (4.00-11.30)
[2019-06-28 21:33] LABS: Anion Gap 8 mmol/L (6-16); Blood Urea Nitrogen 11 mg/dL (8-24); Bun/Creatinine Ratio 16.2 (12.0-20.0); CO2, Blood 28 mmol/L (21-32); Calcium, Blood 8.1 mg/dL (8.5-10.1); Chloride, Blood 104 mmol/L (98-108); Creatinine, Blood 0.68 mg/dL (0.60-1.20); Ethanol (Alcohol), Blood, Med 286 mg/dL; Glomerular Filtration Rate >60 (60-); Glucose, Blood 134 mg/dL (70-99); Sodium, Blood 140 mmol/L (136-145)
[2019-06-29] MEDS ORDERED: ONDA4ODT SL (22:11)
== END 2019-06-29 05:51 | disposition home or self-care (01) ==
LOC: ER 20:00 → EOR 20:01
PROVIDERS: ADMIT Emergency Medicine
DX: F10.129 Alcohol abuse with intoxication, unspecified (principal); G40.909 Epilepsy, unspecified, not intractable, without status epilepticus; F20.9 Schizophrenia, unspecified; I10 Essential (primary) hypertension; J44.9 Chronic obstructive pulmonary disease, unspecified; E87.6 Hypokalemia; F32.9 Major depressive disorder, single episode, unspecified; F17.210 Nicotine dependence, cigarettes, uncomplicated; Z91.018 Allergy to other foods; Z79.899 Other long term (current) drug therapy; Y90.8 Blood alcohol level of 240 mg/100 ml or more
CPT/HCPCS: 36415; 80048; 85025; G0480

== ENCOUNTER 2019-06-29 17:55 | Emergency (ER) | payer MEDICARE ==
[~2019-06-29] VITALS: Ht 175.3 cm; Wt 81.7 kg
[2019-06-29 20:06] LABS: Ethanol (Alcohol), Blood, Med 308 mg/dL
[2019-06-29] MEDS ORDERED: ONDA4ODT SL (22:11)
== END 2019-06-29 22:35 | disposition home or self-care (01) ==
LOC: ER 17:55
PROVIDERS: Emergency Medicine
DX: R10.84 Generalized abdominal pain (principal); F10.129 Alcohol abuse with intoxication, unspecified; I10 Essential (primary) hypertension; J44.9 Chronic obstructive pulmonary disease, unspecified; F20.9 Schizophrenia, unspecified; F32.9 Major depressive disorder, single episode, unspecified; F17.210 Nicotine dependence, cigarettes, uncomplicated; Z91.018 Allergy to other foods; Z79.899 Other long term (current) drug therapy; Y90.8 Blood alcohol level of 240 mg/100 ml or more
CPT/HCPCS: 36415; 74176; 83690; 84132; 99284-25; G0480

== ENCOUNTER 2019-07-02 00:42 | Emergency (ER) | payer MEDICARE ==
[~2019-07-02] VITALS: Ht 175.3 cm; Wt 68.0 kg
[~2019-07-02 00:42] MED LIST changes: +ONDA4ODT SL
== END 2019-07-02 00:52 | disposition home or self-care (01) ==
LOC: ER 00:42
DX: F10.10 Alcohol abuse, uncomplicated (principal); F32.9 Major depressive disorder, single episode, unspecified; F20.9 Schizophrenia, unspecified; F17.210 Nicotine dependence, cigarettes, uncomplicated
CPT/HCPCS: 99284

== ENCOUNTER 2019-07-03 16:43 | Emergency (ER) | payer MEDICARE ==
[~2019-07-03] VITALS: Ht 170.2 cm; Wt 68.0 kg
== END 2019-07-03 17:47 | disposition home or self-care (01) ==
LOC: ER 16:43
DX: S91.302A Unspecified open wound, left foot, initial encounter (principal); F10.10 Alcohol abuse, uncomplicated; F19.10 Other psychoactive substance abuse, uncomplicated; L97.329 Non-pressure chronic ulcer of left ankle with unspecified severity; F17.210 Nicotine dependence, cigarettes, uncomplicated; Z91.018 Allergy to other foods; X58.XXXA Exposure to other specified factors, initial encounter
CPT/HCPCS: 99284

== ENCOUNTER 2019-07-07 19:11 | Observation (INO) | payer MEDICARE ==
[~2019-07-07] VITALS: Ht 165.1 cm; Wt 68.0 kg
[2019-07-07 20:06] LABS: BASOPHILS ABSOLUTE AUTO 0.03 K/mm3 (0.00-0.23); BASOPHILS PERCENT AUTO 0 % (0-2); EOSINOPHILS ABSOLUTE AUTO 0.07 K/mm3 (0.00-0.68); EOSINOPHILS PERCENT AUTO 1 % (0-6); Hematocrit 37.5 % (37.0-53.0); Hemoglobin 12.1 g/dL (13.5-17.5); IMMATURE GRAN ABSOLUTE AUTO 0.03 K/mm3 (0.00-0.10); IMMATURE GRAN PERCENT AUTO 0 % (0-1); LYMPHOCYTES ABSOLUTE AUTO 2.46 K/mm3 (0.84-5.20); LYMPHOCYTES PERCENT AUTO 29 % (21-46); MONOCYTES ABSOLUTE AUTO 0.69 K/mm3 (0.16-1.47); MONOCYTES PERCENT AUTO 8 % (4-13); Mean Corpuscular HGB 29.9 pg (26.0-34.0); Mean Corpuscular HGB Conc 32.3 g/dL (31.5-36.5); Mean Corpuscular Volume 93 fL (80-100); Mean Platelet Volume 8.5 fL (9.1-12.4); NEUTROPHILS ABSOLUTE AUTO 5.08 K/mm3 (1.96-9.15); NEUTROPHILS PERCENT AUTO 61 % (41-73); Platelet Count 442 K/mm3 (150-400); RDW Coefficient Variation 14.2 % (11.7-14.2); RDW Standard Deviation 47.9 fL (35.1-46.3); Red Blood Cell Count 4.05 M/mm3 (4.30-5.90); White Blood Cell Count 8.36 K/mm3 (4.00-11.30)
[2019-07-07 20:24] LABS: Alanine Aminotransfer (ALT/SGP 32 U/L (12-78); Albumin, Blood 3.6 g/dL (3.4-5.0); Albumin/Globulin Ratio 0.9 (0.8-1.8); Alk Phos 90 U/L (50-136); Anion Gap 8 mmol/L (6-16); Aspartate Aminotrans (AST/SGOT 34 U/L (12-37); Bilirubin, Total 0.1 mg/dL (0.1-1.0); Blood Urea Nitrogen 11 mg/dL (8-24); Bun/Creatinine Ratio 19.4 (12.0-20.0); CO2, Blood 26 mmol/L (21-32); Calcium, Blood 8.5 mg/dL (8.5-10.1); Chloride, Blood 108 mmol/L (98-108); Creatinine, Blood 0.57 mg/dL (0.60-1.20); Ethanol (Alcohol), Blood, Med 270 mg/dL; Globulin, Blood 3.9 g/dL (2.2-4.0); Glomerular Filtration Rate >60 (60-); Glucose, Blood 106 mg/dL (70-99); Potassium, Blood 2.9 mmol/L (3.5-5.5); Sodium, Blood 142 mmol/L (136-145); Total Protein, Blood 7.5 g/dL (6.4-8.2)
== END 2019-07-08 00:09 | disposition home or self-care (01) ==
LOC: ER 19:11 → EOR 19:12
PROVIDERS: ADMIT Emergency Medicine
DX: F10.129 Alcohol abuse with intoxication, unspecified (principal); F17.210 Nicotine dependence, cigarettes, uncomplicated; Z91.018 Allergy to other foods; J44.9 Chronic obstructive pulmonary disease, unspecified; F32.9 Major depressive disorder, single episode, unspecified; I10 Essential (primary) hypertension
CPT/HCPCS: 36415; 80053; 85025; 99285; G0378; G0480; J1200; J1630; J2060

== ENCOUNTER 2019-07-18 17:25 | Emergency (ER) | payer MEDICARE ==
[~2019-07-18] VITALS: Ht 167.6 cm; Wt 68.0 kg
[2019-07-18 20:14] LABS: U Amphetamine Screen DETECTED; U Barbituate Screen Not Detected; U Benzodiazapine Screen Not Detected; U Buprenorphine Screen Not Detected; U Cannabinoids Screen DETECTED; U Cocaine Screen Not Detected; U Methadone Screen Not Detected; U Methamphetamine Screen DETECTED; U Opiates Screen Not Detected; U Oxycodone Screen Not Detected; U Phencyclidine Screen Not Detected; U Propoxyphene Screen Not Detected
== END 2019-07-18 20:45 | disposition home or self-care (01) ==
LOC: ER 17:25
PROVIDERS: Nurse Practitioner
DX: F12.129 Cannabis abuse with intoxication, unspecified (principal); F15.129 Other stimulant abuse with intoxication, unspecified; F10.20 Alcohol dependence, uncomplicated; F20.9 Schizophrenia, unspecified; F17.210 Nicotine dependence, cigarettes, uncomplicated
CPT/HCPCS: 99284

== ENCOUNTER 2019-07-20 01:11 | Emergency (ER) | payer MEDICARE ==
[~2019-07-20] VITALS: Ht 167.6 cm; Wt 68.0 kg
== END 2019-07-20 02:10 | disposition home or self-care (01) ==
LOC: ER 01:11
DX: M79.604 Pain in right leg (principal); F17.210 Nicotine dependence, cigarettes, uncomplicated; Z59.0 Homelessness; Z91.018 Allergy to other foods
CPT/HCPCS: 73590; 99284-25

== ENCOUNTER 2019-07-27 16:53 | Emergency (ER) | payer MEDICARE ==
[~2019-07-27] VITALS: Ht 167.6 cm; Wt 70.3 kg
[2019-07-27] MEDS ORDERED: NAPR550 PO (17:39)
== END 2019-07-27 17:53 | disposition home or self-care (01) ==
LOC: ER 16:53
DX: M79.604 Pain in right leg (principal); J44.9 Chronic obstructive pulmonary disease, unspecified; I10 Essential (primary) hypertension; F32.9 Major depressive disorder, single episode, unspecified; F20.9 Schizophrenia, unspecified; F17.200 Nicotine dependence, unspecified, uncomplicated
CPT/HCPCS: 73552; 73590; 96372; 99283-25; J1885

== ENCOUNTER 2019-07-31 17:54 | Emergency (ER) | payer MEDICARE ==
[~2019-07-31] VITALS: Ht 167.6 cm; Wt 63.5 kg
[~2019-07-31 17:54] MED LIST changes: +NAPR550 PO
[2019-07-31] MEDS ORDERED: PANT40 PO (18:03)
== END 2019-07-31 18:12 | disposition home or self-care (01) ==
LOC: ER 17:54
DX: R10.13 Epigastric pain (principal); F10.10 Alcohol abuse, uncomplicated; I10 Essential (primary) hypertension; F20.9 Schizophrenia, unspecified; J44.9 Chronic obstructive pulmonary disease, unspecified; F32.9 Major depressive disorder, single episode, unspecified; F17.210 Nicotine dependence, cigarettes, uncomplicated; Z91.048 Other nonmedicinal substance allergy status; Z79.899 Other long term (current) drug therapy
CPT/HCPCS: 99284

== ENCOUNTER 2019-08-01 13:44 | Emergency (ER) | payer MEDICARE ==
[~2019-08-01] VITALS: Ht 172.7 cm; Wt 79.4 kg
[2019-08-01 15:49] LABS: Anion Gap 8 mmol/L (6-16); CO2, Blood 29 mmol/L (21-32); Chloride, Blood 101 mmol/L (98-108); Potassium, Blood 3.3 mmol/L (3.5-5.5); Sodium, Blood 138 mmol/L (136-145)
[2019-08-01 15:50] LABS: Blood Urea Nitrogen 8 mg/dL (8-24); Bun/Creatinine Ratio 8.7 (12.0-20.0); Calcium, Blood 7.8 mg/dL (8.5-10.1); Creatinine, Blood 0.92 mg/dL (0.60-1.20); Glomerular Filtration Rate >60 (60-); Glucose, Blood 123 mg/dL (70-99)
[2019-08-01 15:51] LABS: Ethanol (Alcohol), Blood, Med 317 mg/dL
[2019-08-01 15:55] LABS: U Amphetamine Screen Not Detected; U Barbituate Screen Not Detected; U Benzodiazapine Screen Not Detected; U Buprenorphine Screen Not Detected; U Cannabinoids Screen DETECTED; U Cocaine Screen Not Detected; U Methadone Screen Not Detected; U Methamphetamine Screen Not Detected; U Opiates Screen Not Detected; U Oxycodone Screen Not Detected; U Phencyclidine Screen Not Detected; U Propoxyphene Screen Not Detected
== END 2019-08-01 23:54 | disposition home or self-care (01) ==
LOC: ER 13:44
PROVIDERS: Emergency Medicine
DX: F10.129 Alcohol abuse with intoxication, unspecified (principal); Y90.8 Blood alcohol level of 240 mg/100 ml or more; M25.551 Pain in right hip; F20.9 Schizophrenia, unspecified; F17.210 Nicotine dependence, cigarettes, uncomplicated; Z86.19 Personal history of other infectious and parasitic diseases; Z79.899 Other long term (current) drug therapy
CPT/HCPCS: 36415; 80048; 96372; 99285-25; A9270; G0480

== ENCOUNTER 2019-08-07 08:39 | Emergency (ER) | payer MEDICARE ==
[~2019-08-07] VITALS: Ht 165.1 cm; Wt 68.0 kg
== END 2019-08-07 09:35 | disposition home or self-care (01) ==
LOC: ER 08:39
DX: M79.661 Pain in right lower leg (principal); I10 Essential (primary) hypertension; F17.210 Nicotine dependence, cigarettes, uncomplicated; Z59.0 Homelessness; Z91.018 Allergy to other foods
CPT/HCPCS: 99283; A9270

== ENCOUNTER 2019-08-18 16:01 | Emergency (ER) | payer MEDICARE | END 2019-08-18 16:45 | disposition home or self-care (01) | DX: F10.129 Alcohol abuse with intoxication, unspecified (principal); F20.9 Schizophrenia, unspecified; I10 Essential (primary) hypertension; F17.210 Nicotine dependence, cigarettes, uncomplicated; Z59.0 Homelessness; Z91.018 Allergy to other foods ==

== ENCOUNTER 2019-08-18 18:16 | Emergency (ER) | payer MEDICARE | END 2019-08-18 18:23 | disposition home or self-care (01) | DX: F10.129 Alcohol abuse with intoxication, unspecified (principal); F17.210 Nicotine dependence, cigarettes, uncomplicated ==

== ENCOUNTER 2019-08-19 17:44 | Emergency (ER) | payer MEDICARE | END 2019-08-19 19:00 | disposition home or self-care (01) | DX: M16.11 Unilateral primary osteoarthritis, right hip (principal); F10.129 Alcohol abuse with intoxication, unspecified; F17.210 Nicotine dependence, cigarettes, uncomplicated; Z91.018 Allergy to other foods ==

== ENCOUNTER 2019-08-23 08:11 | Emergency (ER) | payer MEDICARE ==
[~2019-08-23] VITALS: Ht 170.2 cm; Wt 74.8 kg
== END 2019-08-23 11:49 | disposition home or self-care (01) ==
LOC: ER 08:11
DX: F10.188 Alcohol abuse with other alcohol-induced disorder (principal); R56.9 Unspecified convulsions; I10 Essential (primary) hypertension; F17.210 Nicotine dependence, cigarettes, uncomplicated; Z91.018 Allergy to other foods
CPT/HCPCS: 36415; 96374; 96375; 99284-25; J2060; J2560

== ENCOUNTER 2019-08-25 07:50 | Emergency (ER) | payer MEDICARE ==
[~2019-08-25] VITALS: Ht 177.8 cm; Wt 74.8 kg
[2019-08-26] MEDS ORDERED: DILANTIN (03:05)
== END 2019-08-25 09:40 | disposition home or self-care (01) ==
LOC: ER 07:50
DX: S00.83XA Contusion of other part of head, initial encounter (principal); S50.312A Abrasion of left elbow, initial encounter; I10 Essential (primary) hypertension; F17.210 Nicotine dependence, cigarettes, uncomplicated; Z91.018 Allergy to other foods; Y04.2XXA Assault by strike against or bumped into by another person, initial encounter
CPT/HCPCS: 70140; 71045; 73070; 99284-25; A9270

== ENCOUNTER 2019-08-26 02:20 | Emergency (ER) | payer MEDICARE ==
[~2019-08-26] VITALS: Ht 167.6 cm; Wt 68.0 kg
[2019-08-26] MEDS ORDERED: DILANTIN (03:05)
== END 2019-08-26 05:05 | disposition home or self-care (01) ==
LOC: ER 02:20
DX: S70.01XA Contusion of right hip, initial encounter (principal); F17.210 Nicotine dependence, cigarettes, uncomplicated; Y04.2XXA Assault by strike against or bumped into by another person, initial encounter
CPT/HCPCS: 73502; 99284-25; A9270

== ENCOUNTER 2019-08-28 20:59 | Observation (INO) | payer MEDICARE ==
[~2019-08-28] VITALS: Ht 172.7 cm; Wt 68.0 kg
[~2019-08-28 20:59] MED LIST changes: +DILANTIN
== END 2019-08-29 03:05 | disposition home or self-care (01) ==
LOC: ER 20:59 → EOR 21:00
PROVIDERS: ADMIT Emergency Medicine
DX: F10.129 Alcohol abuse with intoxication, unspecified (principal); F17.210 Nicotine dependence, cigarettes, uncomplicated; I10 Essential (primary) hypertension; J44.9 Chronic obstructive pulmonary disease, unspecified; F32.9 Major depressive disorder, single episode, unspecified; Z79.899 Other long term (current) drug therapy
CPT/HCPCS: 99285; G0378

== ENCOUNTER 2019-09-04 17:48 | Emergency (ER) | payer MEDICARE ==
[~2019-09-04] VITALS: Ht 165.1 cm; Wt 81.7 kg
== END 2019-09-04 18:00 | disposition home or self-care (01) ==
LOC: ER 17:48
DX: F10.129 Alcohol abuse with intoxication, unspecified (principal); F17.210 Nicotine dependence, cigarettes, uncomplicated; Z88.8 Allergy status to other drugs, medicaments and biological substances
CPT/HCPCS: 99283

== ENCOUNTER 2019-09-04 21:42 | Emergency (ER) | payer MEDICARE ==
[~2019-09-04] VITALS: Ht 175.3 cm; Wt 68.0 kg
== END 2019-09-04 22:25 | disposition home or self-care (01) ==
LOC: ER 21:42
DX: F10.129 Alcohol abuse with intoxication, unspecified (principal); F17.210 Nicotine dependence, cigarettes, uncomplicated; Z91.018 Allergy to other foods; Z79.899 Other long term (current) drug therapy
CPT/HCPCS: 99284

== ENCOUNTER 2019-09-12 18:03 | Observation (INO) | payer MEDICARE ==
[~2019-09-12] VITALS: Ht 160 cm; Wt 61.7 kg
[2019-09-12 21:24] LABS: BASOPHILS ABSOLUTE AUTO 0.02 K/mm3 (0.00-0.23); BASOPHILS PERCENT AUTO 0 % (0-2); EOSINOPHILS PERCENT AUTO 0 % (0-6); Hematocrit 34.5 % (37.0-53.0); Hemoglobin 10.9 g/dL (13.5-17.5); IMMATURE GRAN ABSOLUTE AUTO 0.03 K/mm3 (0.00-0.10); IMMATURE GRAN PERCENT AUTO 1 % (0-1); LYMPHOCYTES ABSOLUTE AUTO 1.12 K/mm3 (0.84-5.20); LYMPHOCYTES PERCENT AUTO 17 % (21-46); MONOCYTES ABSOLUTE AUTO 0.32 K/mm3 (0.16-1.47); MONOCYTES PERCENT AUTO 5 % (4-13); Mean Corpuscular HGB 29.1 pg (26.0-34.0); Mean Corpuscular HGB Conc 31.6 g/dL (31.5-36.5); Mean Corpuscular Volume 92 fL (80-100); Mean Platelet Volume 8.4 fL (9.1-12.4); NEUTROPHILS ABSOLUTE AUTO 4.93 K/mm3 (1.96-9.15); NEUTROPHILS PERCENT AUTO 77 % (41-73); Platelet Count 403 K/mm3 (150-400); RDW Standard Deviation 57.1 fL (35.1-46.3); Red Blood Cell Count 3.75 M/mm3 (4.30-5.90); White Blood Cell Count 6.42 K/mm3 (4.00-11.30)
[2019-09-12 21:45] LABS: Alanine Aminotransfer (ALT/SGP 20 U/L (12-78); Albumin/Globulin Ratio 0.7 (0.8-1.8); Alk Phos 73 U/L (50-136); Anion Gap 4 mmol/L (6-16); Aspartate Aminotrans (AST/SGOT 18 U/L (12-37); Bilirubin, Total 0.1 mg/dL (0.1-1.0); Blood Urea Nitrogen 11 mg/dL (8-24); Bun/Creatinine Ratio 15.9 (12.0-20.0); CO2, Blood 31 mmol/L (21-32); Calcium, Blood 8.1 mg/dL (8.5-10.1); Chloride, Blood 109 mmol/L (98-108); Creatinine, Blood 0.69 mg/dL (0.60-1.20); Ethanol (Alcohol), Blood, Med 280 mg/dL; Globulin, Blood 4.1 g/dL (2.2-4.0); Glomerular Filtration Rate >60 (60-); Glucose, Blood 112 mg/dL (70-99); Potassium, Blood 3.5 mmol/L (3.5-5.5); Sodium, Blood 144 mmol/L (136-145); Total Protein, Blood 7.1 g/dL (6.4-8.2)
[2019-09-12 21:56] LABS: Source, Urine Clean Catch
[2019-09-12 22:02] LABS: Bilirubin, Urine Neg (Neg); Blood, Urine Neg (Neg); Glucose Qualitative, Urine Neg (Neg); Ketones, Urine Neg (Neg); Leukocyte Esterase, Urine Neg (Neg); Nitrite, Urine Neg (Neg); Protein, Urine Neg (Neg); Specific Gravity, Urine 1.005 (1.003-1.022); Urobilinogen, Urine NORM (Normal)
[2019-09-12 22:05] LABS: Appearance, Urine Clear (Clear); Color, Urine Yellow (P-Yellow)
[2019-09-12 22:15] LABS: U Amphetamine Screen Not Detected; U Barbituate Screen Not Detected; U Benzodiazapine Screen Not Detected; U Buprenorphine Screen Not Detected; U Cannabinoids Screen DETECTED; U Cocaine Screen Not Detected; U Methadone Screen Not Detected; U Methamphetamine Screen Not Detected; U Opiates Screen DETECTED; U Oxycodone Screen Not Detected; U Phencyclidine Screen Not Detected; U Propoxyphene Screen Not Detected
[2019-09-12 23:19] LABS: Magnesium, Blood 2.2 mg/dL (1.6-2.4); Phosphorus, Blood 4.5 mg/dL (2.5-4.9)
[2019-09-13 05:06] LABS: BASOPHILS ABSOLUTE AUTO 0.03 K/mm3 (0.00-0.23); BASOPHILS PERCENT AUTO 1 % (0-2); EOSINOPHILS ABSOLUTE AUTO 0.06 K/mm3 (0.00-0.68); EOSINOPHILS PERCENT AUTO 1 % (0-6); Hematocrit 39.1 % (37.0-53.0); Hemoglobin 12.3 g/dL (13.5-17.5); IMMATURE GRAN ABSOLUTE AUTO 0.03 K/mm3 (0.00-0.10); IMMATURE GRAN PERCENT AUTO 1 % (0-1); LYMPHOCYTES ABSOLUTE AUTO 1.88 K/mm3 (0.84-5.20); LYMPHOCYTES PERCENT AUTO 31 % (21-46); MONOCYTES ABSOLUTE AUTO 0.37 K/mm3 (0.16-1.47); MONOCYTES PERCENT AUTO 6 % (4-13); Mean Corpuscular HGB 28.9 pg (26.0-34.0); Mean Corpuscular HGB Conc 31.5 g/dL (31.5-36.5); Mean Corpuscular Volume 92 fL (80-100); Mean Platelet Volume 8.2 fL (9.1-12.4); NEUTROPHILS PERCENT AUTO 62 % (41-73); Platelet Count 383 K/mm3 (150-400); RDW Coefficient Variation 17.3 % (11.7-14.2); RDW Standard Deviation 58.2 fL (35.1-46.3); Red Blood Cell Count 4.25 M/mm3 (4.30-5.90); White Blood Cell Count 6.17 K/mm3 (4.00-11.30)
[2019-09-13 05:26] LABS: Anion Gap 4 mmol/L (6-16); Blood Urea Nitrogen 10 mg/dL (8-24); Bun/Creatinine Ratio 15.1 (12.0-20.0); CO2, Blood 30 mmol/L (21-32); Calcium, Blood 7.7 mg/dL (8.5-10.1); Chloride, Blood 108 mmol/L (98-108); Creatinine, Blood 0.66 mg/dL (0.60-1.20); Glomerular Filtration Rate >60 (60-); Glucose, Blood 91 mg/dL (70-99); Magnesium, Blood 2.7 mg/dL (1.6-2.4); Potassium, Blood 3.7 mmol/L (3.5-5.5); Sodium, Blood 142 mmol/L (136-145)
--- NOTE | 2019-09-13 06:49 | NUR ---
PT WAS ADMITTED TO ROOM ICU 5 AT 0035 FROM ED. REPORT RECEIVED. PT SLIDE TRANSFERED TO BED FROM [facility]. PT HAS COMPLETED BANANA BAG AND IS SALINE LOCKED AT THIS TIME. CALL MADE TO DR PALUMBO FOR ORDERS FOR DIET AND UPDATE ON PT. WILL REVIEW CHART AND WILL REPORT OFF TO ONCOMING.
--- NOTE | 2019-09-13 08:54 | NUR ---
CARE ASSUMED PT DROWSY BUT APPROPRIATE AND COOPERATIVE WHEN AWAKE. TOLERATED BREAKFAST, THEN WENT BACK TO SLEEP, WOKEN FOR ASSESSMENT. DURING ASSSESSMENT PT C/O GROIN PAIN, UPON VISUALIZATION IT WAS FOUND THAT PT'S FORESKIN WAS RETRACTED AND THE HEAD OF THE PENIS IS SWOLLEN AND TENDER. PT VOIDING WITHOUT DIFFICULTY, STATES PAIN HAS BEEN PRESENT X2 DAYS. ATTEMPTED TO PULL FORESKIN DOWN, UNABLE D/T SWELLING AND PAIN. DR. HILL NOTIFIED. PT WENT BACK TO SLEEP. VSS.
--- NOTE | 2019-09-13 09:43 | NUR ---
UPDATE DR. HILL IN TO ASSESS, NEW ORDERS FOR R GROIN US AND PAIN MEDICATION, PT REPORTS PAIN IN BOTH PENIS AND R GROIN AREA, NO OBVIOUS HERNIA NOTED.
[2019-09-13] MEDS ORDERED: Dilantin 100 m100 MG (11:57)
--- NOTE | 2019-09-13 12:12 | NUR ---
UPDATE CIWA SCORE REMAINS MINIMAL, PT TOLERATING MEALS WITHOUT DIFFICULTY, VSS. CONTINUES TO C/O SEVERE R GROIN PAIN WITH MOVEMENT, MINIMAL RELIEF WITH FENTANYL OR ICE PACK, PT SLEEPING WHEN LYING STILL. SWELLING TO PENIS APPEARS TO BE INCREASING, DR. HILL NOTIFIED, ALSO AWARE OF US RESULTS. PLANS TO SPEAK WITH RADIOLOGY TO DISCUSS PLAN OF CARE.
--- NOTE | 2019-09-13 15:03 | NUR ---
UPDATE 1300: SPOKE AGAIN WITH DR. HILL, NEW ORDERS FOR ORTHO CONSULT. DISCUSSED UROLOGY, DR. BLANK SPEAK WITH UROLOGIST IN [place]. 1430: LIDOCAINE PATCH APPLIED TO R HIP, PENIS APPEARS UNCHANGED FROM LAST ASSESSMENT, REMAINS RED, SWOLLEN, AND PAINFUL, NO SIGNS TISSUE NECROSIS NOTED, PT CONTINUES TO VOID WITHOUT DIFFICULTY. 1500: DR. HILL IN TO SEE PATIENT, ORTHO CONSULT CALLED. [facility] IN [place] IN CONTACT WITH THIS RN TO CONFIRM ACCEPTANCE OF TRANSFER. PT RESTING IN BED WITH EYES CLOSED, VSS.
[2019-09-13] MEDS ORDERED: NAPR550 PO (15:24)
[2019-09-13] MEDS ORDERED: ONDA4ODT MM (15:24)
--- NOTE | 2019-09-13 15:38 | NUR ---
UPDATE TRANSFER ACCEPTED BY [facility], ORTHO CONSULT CANCELLED. AWAITING ROOM ASSIGNMENT.
--- NOTE | 2019-09-13 19:11 | NUR ---
TRANSFER PT REMAINED CALM AND COOPERATIVE T/O SHIFT, CIWAS MINIMAL, SCHEDULED LIBRIUM ADMINISTERED PER ORDERS. ICE PACK TO PENIS REFRESHED, PT ATE DINNER WITHOUT DIFFICULTY, SLEPT MOST OF THE DAY, NO EPISODES OF INCONTINENCE. REPORT CALLED TO DENI MAURICE AT [facility] AT 1800, EMS CALLED FOR TRANSPORT. PT SENT TO [facility] AT 1850 WITH BELONGINGS AND TRANSFER PACKET VIA AMBULANCE, COMPLIANT AND AGREEABLE TO TRANSFER.
== END 2019-09-13 18:57 | disposition short-term general hospital (02) ==
LOC: ER 18:03 → ICUW 18:04 → ICUE 18:04
PROVIDERS: Nurse Practitioner Acute Care; Student in an Organized Health Care Education/Training Program; ADMIT Internal Medicine
DX: F10.129 Alcohol abuse with intoxication, unspecified (principal); M16.11 Unilateral primary osteoarthritis, right hip; N47.2 Paraphimosis; F11.90 Opioid use, unspecified, uncomplicated; F12.90 Cannabis use, unspecified, uncomplicated; Y90.8 Blood alcohol level of 240 mg/100 ml or more; G92 Toxic encephalopathy; G40.909 Epilepsy, unspecified, not intractable, without status epilepticus; Z79.899 Other long term (current) drug therapy; J44.9 Chronic obstructive pulmonary disease, unspecified; I10 Essential (primary) hypertension; Z91.018 Allergy to other foods; R10.9 Unspecified abdominal pain; F32.9 Major depressive disorder, single episode, unspecified; F17.210 Nicotine dependence, cigarettes, uncomplicated
CPT/HCPCS: 36415; 70450; 74176; 76857; 80048; 80053; 81003; 82140; 83690; 83735; 84100; 85025; 96374; 96375; 96376; 99285-25; C9113; G0378; G0480; J2060; J3010; J3411; J3475; J7042; U0002

== ENCOUNTER 2019-09-29 21:43 | Emergency (ER) | payer MEDICARE ==
[~2019-09-29] VITALS: Ht 167.6 cm; Wt 79.4 kg
[~2019-09-29 21:43] MED LIST changes: +Dilantin 100 m100 MG; +ONDA4ODT MM
[2019-09-29 22:52] LABS: BASOPHILS ABSOLUTE AUTO 0.07 K/mm3 (0.00-0.23); BASOPHILS PERCENT AUTO 1 % (0-2); EOSINOPHILS ABSOLUTE AUTO 0.21 K/mm3 (0.00-0.68); EOSINOPHILS PERCENT AUTO 3 % (0-6); Hematocrit 37.7 % (37.0-53.0); IMMATURE GRAN ABSOLUTE AUTO 0.03 K/mm3 (0.00-0.10); IMMATURE GRAN PERCENT AUTO 0 % (0-1); LYMPHOCYTES ABSOLUTE AUTO 1.83 K/mm3 (0.84-5.20); LYMPHOCYTES PERCENT AUTO 25 % (21-46); MONOCYTES ABSOLUTE AUTO 0.52 K/mm3 (0.16-1.47); MONOCYTES PERCENT AUTO 7 % (4-13); Mean Corpuscular HGB 29.3 pg (26.0-34.0); Mean Corpuscular HGB Conc 31.8 g/dL (31.5-36.5); Mean Corpuscular Volume 92 fL (80-100); Mean Platelet Volume 8.8 fL (9.1-12.4); NEUTROPHILS ABSOLUTE AUTO 4.65 K/mm3 (1.96-9.15); NEUTROPHILS PERCENT AUTO 64 % (41-73); Platelet Count 324 K/mm3 (150-400); RDW Coefficient Variation 16.5 % (11.7-14.2); RDW Standard Deviation 56.4 fL (35.1-46.3); Red Blood Cell Count 4.09 M/mm3 (4.30-5.90); White Blood Cell Count 7.31 K/mm3 (4.00-11.30)
[2019-09-29 23:10] LABS: Alanine Aminotransfer (ALT/SGP 20 U/L (12-78); Albumin, Blood 3.4 g/dL (3.4-5.0); Albumin/Globulin Ratio 0.8 (0.8-1.8); Alk Phos 93 U/L (50-136); Anion Gap 6 mmol/L (6-16); Aspartate Aminotrans (AST/SGOT 24 U/L (12-37); Bilirubin, Total 0.2 mg/dL (0.1-1.0); Blood Urea Nitrogen 7 mg/dL (8-24); Bun/Creatinine Ratio 9.7 (12.0-20.0); CO2, Blood 28 mmol/L (21-32); Chloride, Blood 109 mmol/L (98-108); Creatinine, Blood 0.72 mg/dL (0.60-1.20); Glomerular Filtration Rate >60 (60-); Glucose, Blood 123 mg/dL (70-99); Potassium, Blood 3.5 mmol/L (3.5-5.5); Sodium, Blood 143 mmol/L (136-145); Total Protein, Blood 7.4 g/dL (6.4-8.2)
[2019-09-29 23:38] LABS: Ethanol (Alcohol), Blood, Med 307 mg/dL
== END 2019-09-30 00:24 | disposition home or self-care (01) ==
LOC: ER 21:43
PROVIDERS: Emergency Medicine
DX: S00.83XA Contusion of other part of head, initial encounter (principal); F10.129 Alcohol abuse with intoxication, unspecified; Y90.8 Blood alcohol level of 240 mg/100 ml or more; F03.90 Unspecified dementia, unspecified severity, without behavioral disturbance, psychotic disturbance, mood disturbance, and anxiety; F17.210 Nicotine dependence, cigarettes, uncomplicated; Z88.8 Allergy status to other drugs, medicaments and biological substances; W19.XXXA Unspecified fall, initial encounter
CPT/HCPCS: 36415; 70450; 80053; 83690; 85025; 99284-25; A9270-GY; G0480

== ENCOUNTER 2019-10-06 16:23 | Emergency (ER) | payer MEDICARE ==
[~2019-10-06] VITALS: Ht 172.7 cm; Wt 72.6 kg
== END 2019-10-06 18:20 | disposition home or self-care (01) ==
LOC: ER 16:23
DX: S82.61XA Displaced fracture of lateral malleolus of right fibula, initial encounter for closed fracture (principal); F17.200 Nicotine dependence, unspecified, uncomplicated; Z59.0 Homelessness; Z88.8 Allergy status to other drugs, medicaments and biological substances; X58.XXXA Exposure to other specified factors, initial encounter
CPT/HCPCS: 29515; 73610; 99283-25; A9270-GY

== ENCOUNTER 2019-10-07 01:48 | Emergency (ER) | payer MEDICARE ==
[~2019-10-07] VITALS: Ht 165.1 cm; Wt 68.0 kg
[2019-10-07 10:57] LABS: Alanine Aminotransfer (ALT/SGP 25 U/L (12-78); Albumin, Blood 3.2 g/dL (3.4-5.0); Albumin/Globulin Ratio 0.8 (0.8-1.8); Alk Phos 84 U/L (50-136); Anion Gap 5 mmol/L (6-16); Aspartate Aminotrans (AST/SGOT 27 U/L (12-37); Bilirubin, Total 0.2 mg/dL (0.1-1.0); Blood Urea Nitrogen 6 mg/dL (8-24); Bun/Creatinine Ratio 9.2 (12.0-20.0); CO2, Blood 30 mmol/L (21-32); CPK Creatine Kinase 380 U/L (39-308); Calcium, Blood 8.1 mg/dL (8.5-10.1); Chloride, Blood 110 mmol/L (98-108); Creatine Kinase MB 5.3 ng/mL (0.0-3.6); Creatine Kinase MB Index 1.4 (0.0-4.0); Creatinine, Blood 0.65 mg/dL (0.60-1.20); Globulin, Blood 3.9 g/dL (2.2-4.0); Glomerular Filtration Rate >60 (60-); Glucose, Blood 92 mg/dL (70-99); Potassium, Blood 3.6 mmol/L (3.5-5.5); Sodium, Blood 145 mmol/L (136-145); Total Protein, Blood 7.1 g/dL (6.4-8.2)
== END 2019-10-07 10:55 | disposition home or self-care (01) ==
LOC: ER 01:48
PROVIDERS: Emergency Medicine
DX: R45.1 Restlessness and agitation (principal); F10.129 Alcohol abuse with intoxication, unspecified; M79.671 Pain in right foot; R11.0 Nausea; S82.61XD Displaced fracture of lateral malleolus of right fibula, subsequent encounter for closed fracture with routine healing; F17.200 Nicotine dependence, unspecified, uncomplicated; Z88.8 Allergy status to other drugs, medicaments and biological substances; X58.XXXA Exposure to other specified factors, initial encounter
CPT/HCPCS: 36415; 80053; 82550; 82553; 96372; 99285-25; J1885

== ENCOUNTER 2019-10-16 21:01 | Emergency (ER) | payer MEDICARE ==
[~2019-10-16] VITALS: Ht 165.1 cm; Wt 61.2 kg
== END 2019-10-16 22:59 | disposition home or self-care (01) ==
LOC: ER 21:01
DX: F10.129 Alcohol abuse with intoxication, unspecified (principal); F17.210 Nicotine dependence, cigarettes, uncomplicated; Z88.8 Allergy status to other drugs, medicaments and biological substances
CPT/HCPCS: 99284

== ENCOUNTER 2019-10-21 19:52 | Emergency (ER) | payer MEDICARE ==
[~2019-10-21] VITALS: Ht 172.7 cm; Wt 86.2 kg
== END 2019-10-21 21:36 | disposition home or self-care (01) ==
LOC: ER 19:52
DX: F10.129 Alcohol abuse with intoxication, unspecified (principal); R45.1 Restlessness and agitation; Z91.018 Allergy to other foods; F17.210 Nicotine dependence, cigarettes, uncomplicated
CPT/HCPCS: 70450; 72125; 96372; 99285-25

== ENCOUNTER 2019-10-22 04:40 | Emergency (ER) | payer MEDICARE ==
[~2019-10-22] VITALS: Ht 170.2 cm; Wt 68.0 kg
== END 2019-10-22 04:48 | disposition home or self-care (01) ==
LOC: ER 04:40
DX: Z00.8 Encounter for other general examination (principal); M79.604 Pain in right leg; F17.210 Nicotine dependence, cigarettes, uncomplicated; Z91.018 Allergy to other foods
CPT/HCPCS: 99283

== ENCOUNTER 2019-10-30 19:37 | Emergency (ER) | payer MEDICARE ==
[~2019-10-30] VITALS: Ht 162.6 cm; Wt 63.5 kg
== END 2019-10-30 20:20 | disposition home or self-care (01) ==
LOC: ER 19:37
DX: F10.10 Alcohol abuse, uncomplicated (principal); F17.200 Nicotine dependence, unspecified, uncomplicated
CPT/HCPCS: 99284

== ENCOUNTER 2019-11-18 01:20 | Emergency (ER) | payer MEDICARE ==
[~2019-11-18] VITALS: Ht 170.2 cm; Wt 70.3 kg
[2019-11-18 01:42] LABS: BASOPHILS ABSOLUTE AUTO 0.05 K/mm3 (0.00-0.23); BASOPHILS PERCENT AUTO 1 % (0-2); EOSINOPHILS ABSOLUTE AUTO 0.17 K/mm3 (0.00-0.68); EOSINOPHILS PERCENT AUTO 2 % (0-6); Hematocrit 33.5 % (37.0-53.0); Hemoglobin 10.6 g/dL (13.5-17.5); IMMATURE GRAN ABSOLUTE AUTO 0.05 K/mm3 (0.00-0.10); IMMATURE GRAN PERCENT AUTO 1 % (0-1); LYMPHOCYTES ABSOLUTE AUTO 1.32 K/mm3 (0.84-5.20); LYMPHOCYTES PERCENT AUTO 17 % (21-46); MONOCYTES ABSOLUTE AUTO 1.32 K/mm3 (0.16-1.47); MONOCYTES PERCENT AUTO 17 % (4-13); Mean Corpuscular HGB 29.9 pg (26.0-34.0); Mean Corpuscular HGB Conc 31.6 g/dL (31.5-36.5); Mean Corpuscular Volume 95 fL (80-100); Mean Platelet Volume 9.2 fL (9.1-12.4); NEUTROPHILS ABSOLUTE AUTO 4.98 K/mm3 (1.96-9.15); NEUTROPHILS PERCENT AUTO 63 % (41-73); Platelet Count 335 K/mm3 (150-400); RDW Coefficient Variation 14.8 % (11.7-14.2); Red Blood Cell Count 3.54 M/mm3 (4.30-5.90); White Blood Cell Count 7.89 K/mm3 (4.00-11.30)
[2019-11-18 02:01] LABS: Alanine Aminotransfer (ALT/SGP 37 U/L (12-78); Albumin, Blood 3.2 g/dL (3.4-5.0); Albumin/Globulin Ratio 0.7 (0.8-1.8); Alk Phos 85 U/L (50-136); Anion Gap 6 mmol/L (6-16); Aspartate Aminotrans (AST/SGOT 45 U/L (12-37); Bilirubin, Total 0.2 mg/dL (0.1-1.0); Blood Urea Nitrogen 8 mg/dL (8-24); Bun/Creatinine Ratio 10.2 (12.0-20.0); CO2, Blood 27 mmol/L (21-32); Calcium, Blood 8.5 mg/dL (8.5-10.1); Chloride, Blood 110 mmol/L (98-108); Creatinine, Blood 0.79 mg/dL (0.60-1.20); Ethanol (Alcohol), Blood, Med 282 mg/dL; Globulin, Blood 4.6 g/dL (2.2-4.0); Glomerular Filtration Rate >60 (60-); Glucose, Blood 87 mg/dL (70-99); Potassium, Blood 3.8 mmol/L (3.5-5.5); Sodium, Blood 143 mmol/L (136-145); Total Protein, Blood 7.8 g/dL (6.4-8.2)
== END 2019-11-18 03:03 | disposition home or self-care (01) ==
LOC: ER 01:20
PROVIDERS: Emergency Medicine
DX: F10.129 Alcohol abuse with intoxication, unspecified (principal); R07.81 Pleurodynia; I10 Essential (primary) hypertension; F17.210 Nicotine dependence, cigarettes, uncomplicated; Z91.018 Allergy to other foods; Y90.8 Blood alcohol level of 240 mg/100 ml or more
CPT/HCPCS: 70450; 71250; 72125; 80053; 85025; 99284-25; G0480

== ENCOUNTER 2019-11-24 09:07 | Emergency (ER) | payer MEDICARE ==
[~2019-11-24] VITALS: Ht 165.1 cm; Wt 65.8 kg
== END 2019-11-24 10:00 | disposition home or self-care (01) ==
LOC: ER 09:07
DX: L60.2 Onychogryphosis (principal); J44.9 Chronic obstructive pulmonary disease, unspecified; I10 Essential (primary) hypertension; F32.9 Major depressive disorder, single episode, unspecified; F17.210 Nicotine dependence, cigarettes, uncomplicated; Z91.018 Allergy to other foods

== ENCOUNTER 2019-11-27 02:50 | Emergency (ER) | payer MEDICARE ==
[~2019-11-27] VITALS: Ht 175.3 cm; Wt 81.7 kg
== END 2019-11-27 03:31 | disposition home or self-care (01) ==
LOC: ER 02:50
DX: M79.604 Pain in right leg (principal); G89.29 Other chronic pain; Z88.8 Allergy status to other drugs, medicaments and biological substances; I10 Essential (primary) hypertension; J44.9 Chronic obstructive pulmonary disease, unspecified; F32.9 Major depressive disorder, single episode, unspecified; F03.90 Unspecified dementia, unspecified severity, without behavioral disturbance, psychotic disturbance, mood disturbance, and anxiety; G40.909 Epilepsy, unspecified, not intractable, without status epilepticus; Z86.19 Personal history of other infectious and parasitic diseases; F17.210 Nicotine dependence, cigarettes, uncomplicated
CPT/HCPCS: 99284

== ENCOUNTER 2019-12-03 17:47 | Emergency (ER) | payer MEDICARE ==
[~2019-12-03] VITALS: Ht 160 cm; Wt 65.8 kg
== END 2019-12-03 23:48 | disposition home or self-care (01) ==
LOC: ER 17:47
DX: F10.129 Alcohol abuse with intoxication, unspecified (principal); F15.129 Other stimulant abuse with intoxication, unspecified; Z91.018 Allergy to other foods; I10 Essential (primary) hypertension; F32.9 Major depressive disorder, single episode, unspecified; J44.9 Chronic obstructive pulmonary disease, unspecified; F20.9 Schizophrenia, unspecified; F17.200 Nicotine dependence, unspecified, uncomplicated
CPT/HCPCS: 99284

== ENCOUNTER 2020-01-16 08:21 | Emergency (ER) | payer MEDICARE ==
[~2020-01-16] VITALS: Ht 167.6 cm; Wt 77.1 kg
== END 2020-01-16 11:35 | disposition home or self-care (01) ==
LOC: ER 08:21
DX: M16.11 Unilateral primary osteoarthritis, right hip (principal); J44.9 Chronic obstructive pulmonary disease, unspecified; I10 Essential (primary) hypertension; F17.210 Nicotine dependence, cigarettes, uncomplicated; Z91.018 Allergy to other foods
CPT/HCPCS: 99283

== ENCOUNTER 2020-02-03 04:43 | Inpatient (IN) | payer MEDICARE ==
[~2020-02-03] VITALS: Ht 165.1 cm; Wt 63.5 kg
[2020-02-03 05:05] LABS: Calcium, Ionized (POC) 1.03 mmol/L (1.10-1.46); Chloride (POC) 100 mmol/L (98-108); Glucose (ISTAT POC) 77 mg/dL (70-99); Hemoglobin (POC) 14.6 g/dL (13.5-17.5); Potassium (POC) 2.9 mmol/L (3.5-5.5); Sodium (POC) 137 mmol/L (135-148); Total CO2 (POC) 18 mmol/L (21-32)
[2020-02-03 05:07] LABS: PCO2 Arterial 49.3 mmHg (35-45); PO2 Arterial 140 mmHg (80-100); pH Blood Arterial 7.23 (7.35-7.45)
[2020-02-03 05:08] LABS: BASOPHILS ABSOLUTE AUTO 0.03 K/mm3 (0.00-0.23); BASOPHILS PERCENT AUTO 0 % (0-2); EOSINOPHILS ABSOLUTE AUTO 0.01 K/mm3 (0.00-0.68); EOSINOPHILS PERCENT AUTO 0 % (0-6); Hematocrit 39.9 % (37.0-53.0); Hemoglobin 12.6 g/dL (13.5-17.5); IMMATURE GRAN ABSOLUTE AUTO 0.03 K/mm3 (0.00-0.10); IMMATURE GRAN PERCENT AUTO 0 % (0-1); LYMPHOCYTES PERCENT AUTO 9 % (21-46); MONOCYTES ABSOLUTE AUTO 0.67 K/mm3 (0.16-1.47); MONOCYTES PERCENT AUTO 8 % (4-13); Mean Corpuscular HGB 27.8 pg (26.0-34.0); Mean Corpuscular HGB Conc 31.6 g/dL (31.5-36.5); Mean Corpuscular Volume 88 fL (80-100); Mean Platelet Volume 8.6 fL (9.1-12.4); NEUTROPHILS ABSOLUTE AUTO 7.11 K/mm3 (1.96-9.15); NEUTROPHILS PERCENT AUTO 82 % (41-73); Platelet Count 418 K/mm3 (150-400); RDW Coefficient Variation 17.7 % (11.7-14.2); RDW Standard Deviation 55.8 fL (35.1-46.3); Red Blood Cell Count 4.53 M/mm3 (4.30-5.90); White Blood Cell Count 8.65 K/mm3 (4.00-11.30)
[2020-02-03 05:20] LABS: Source, Urine Catheter
[2020-02-03 05:21] LABS: Alanine Aminotransfer (ALT/SGP 28 U/L (12-78); Alk Phos 137 U/L (50-136); Anion Gap 20 mmol/L (6-16); Aspartate Aminotrans (AST/SGOT 45 U/L (12-37); Bilirubin, Total 0.9 mg/dL (0.1-1.0); Blood Urea Nitrogen 10 mg/dL (8-24); Bun/Creatinine Ratio 10.5 (12.0-20.0); CO2, Blood 19 mmol/L (21-32); Calcium, Blood 9.2 mg/dL (8.5-10.1); Chloride, Blood 100 mmol/L (98-108); Creatinine, Blood 0.95 mg/dL (0.60-1.20); Ethanol (Alcohol), Blood, Med <3 mg/dL; Glomerular Filtration Rate >60 (60-); Glucose, Blood 75 mg/dL (70-99); Magnesium, Blood 2.8 mg/dL (1.6-2.4); Potassium, Blood 2.9 mmol/L (3.5-5.5); Sodium, Blood 139 mmol/L (136-145); Troponin I <0.015 ng/mL (0.000-0.040)
[2020-02-03 05:24] LABS: Appearance, Urine Clear (Clear); Bilirubin, Urine Neg (Neg); Blood, Urine 3+ (Neg); Color, Urine Yellow (P-Yellow); Glucose Qualitative, Urine Neg (Neg); Ketones, Urine 1+ (Neg); Leukocyte Esterase, Urine Neg (Neg); Nitrite, Urine Neg (Neg); Protein, Urine 3+ (Neg); Specific Gravity, Urine 1.015 (1.003-1.022); Urobilinogen, Urine NORM (Normal); pH, Urine 6.5 (5.0-8.0)
[2020-02-03 05:29] LABS: Bacteria Few /hpf; Red Blood Cells, Urine 0-2 /hpf (0-2); Squamous Epithelial Cells Not Seen /hpf (Few); White Blood Cells, Urine 0-2 /hpf (0-5)
[2020-02-03 05:30] LABS: Amorphous Light (0-Heavy); Hyaline Casts 0-2 /lpf (0-2)
[2020-02-03 05:35] LABS: U Amphetamine Screen DETECTED; U Barbituate Screen Not Detected; U Benzodiazapine Screen Not Detected; U Buprenorphine Screen Not Detected; U Cannabinoids Screen DETECTED; U Cocaine Screen Not Detected; U Methadone Screen Not Detected; U Methamphetamine Screen DETECTED; U Opiates Screen Not Detected; U Oxycodone Screen Not Detected; U Phencyclidine Screen Not Detected; U Propoxyphene Screen Not Detected
[2020-02-03 06:35] LABS: International Normalized Ratio 0.98; Prothrombin Time Results 10.5 Sec (9.7-11.5)
--- NOTE | 2020-02-03 08:00 | NUR ---
ASSUMPTION OF CARE RECEIVED PATIENT FROM ED VIA STRETCHER, 4 PERSON ASSIST TO BED. PATIENT INTUBATED, PROPOFOL WAS INFUSING AT 30MCG/KG/HR, PATIENT WAKEFUL TO PHYSICAL STIMULI. AGITATED WHEN AWAKE. WILL MONITOR AND TREAT PRESCRIBED.
--- NOTE | 2020-02-03 11:09 | NUR ---
PHYSICIAN COMMUNICATION REVIEWED PATIENTS LABS AND ORDERS WITH DR. ZAMORA. ADVANCED OG DIRECTED, CXR PERFORMED REPORTED, RECEIVED NEW MEDICATION ORDERS. WILL TREAT PRESCRIBED.
[2020-02-03 11:14] LABS: Base Excess Venous -6.3 mmol/L; Bicarbonate Venous 20.1 mmol/L (24.0-30.0); PCO2 Venous 28.3 mmHg (38-42); PO2 Venous 153 mmHg (38-42); pH Blood Venous 7.42 (7.34-7.37)
--- NOTE | 2020-02-03 12:00 | NUR ---
RE-ASSESSMENT NO ACUTE CHANGES FROM INITIAL ASSESSMENT. INTUBATED AND SEDATED. FIO2 DECREASED TO 30% PER RESULTS OF VBG. PROPOFOL AT 40MCG/KG/HR.
--- NOTE | 2020-02-03 16:00 | NUR ---
RE-ASSESSMENT NO ACUTE CHANGES FROM PREVIOUS ASSESSMENT. VENT SETTINGS UNCHANGED. PROPOFOL REMAINS AT 40MCG/KR/HR. DISCUSSED PATIENT'S CARE WITH DR. ZAMORA. NEW ORDERS RECEIVED, WILL TREAT PRESCRIBED.
[2020-02-03 16:48] LABS: Magnesium, Blood 2.1 mg/dL (1.6-2.4); Potassium, Blood 3.8 mmol/L (3.5-5.5)
--- NOTE | 2020-02-03 18:03 | NUR ---
SHIFT SUMMARY PATIENT REMAINS INTUBATED, VENT SETTINGS UNCHANGED. OG TO LIS WITH DARK BROWN DRAINAGE. HOLDER TO GRAVITY WITH CLEAR YELLOW URINE. VITAL SIGNS STABLE, IV FLUIDS AND MEDICATIONS INFUSING ORDERED.
--- NOTE | 2020-02-03 19:15 | NUR ---
ASSUMED PT CARE BEDSIDE REPORT WITH MERLE CHEEMA AND YAMILETH CHEEMA AT 1900. ASSUMED PT CARE. PT IS SEDATED AND VENTED. RESPONSIVE TO NOXIOUS STIMULI. VENT SETTTINGS AC16/450/8/30, SATS >92%. LUNG SOUNDS CLEAR, DIMINISHED TO BASES. SMALL AMOUNT OF YELLOW/WARREN SECRETIONS TO SUCTION TUBE. OG TUBE WITH BROWNISH DRAINAGE TO LIS. ABD SOFT, FLAT, BOWEL TONES ACTIVE. TEMP PROBE HOLDER DRAINING CLEAR YELLOW URINE. PT AFEBRILE. PT HR PER MONITOR NSR RATE 70S. BP HYPERTENSIVE. SKIN INTACT. SOFT WRIST RESTRAINTS SECURE. BED LOW. SEE FULL SHIFT ASSESSMENT.
--- NOTE | 2020-02-03 19:56 | NUR ---
PROVIDER ORDERS SPOKE WITH DR ZAMORA RE NO ORDERS FOR PEEP TITRATION, PER PROVIDER OK TO TITRATE DOWN OT 5. ASKED PROVIDER FOR SOMETHING FOR PTS HTN, ORDERS RECEIVED FOR MEDS.
--- NOTE | 2020-02-04 02:30 | NUR ---
ASSUMED CARE RECEIVED REPORT FROM DENI HOPKINS. PT IS INTUBATED ON VENT AC 16/450/5/25%. CURRENT GTTPS: PROPOFOL IS ON AT 40 MCG/KG/MIN, AND NS TKO. PT HAS PATENT HOLDER DRAINING YELLOW URINE, OG TUBE HOOKED UP TO LIS, AND IS SECURED IN BILATERAL WRIST RESTRAINTS. BED LOW AND LOCKED.
[2020-02-04 03:34] LABS: BASOPHILS ABSOLUTE AUTO 0.02 K/mm3 (0.00-0.23); BASOPHILS PERCENT AUTO 0 % (0-2); EOSINOPHILS ABSOLUTE AUTO 0.03 K/mm3 (0.00-0.68); EOSINOPHILS PERCENT AUTO 0 % (0-6); Hematocrit 34.9 % (37.0-53.0); IMMATURE GRAN ABSOLUTE AUTO 0.01 K/mm3 (0.00-0.10); IMMATURE GRAN PERCENT AUTO 0 % (0-1); LYMPHOCYTES ABSOLUTE AUTO 1.01 K/mm3 (0.84-5.20); LYMPHOCYTES PERCENT AUTO 15 % (21-46); MONOCYTES ABSOLUTE AUTO 0.76 K/mm3 (0.16-1.47); MONOCYTES PERCENT AUTO 11 % (4-13); Mean Corpuscular HGB 27.9 pg (26.0-34.0); Mean Corpuscular HGB Conc 31.5 g/dL (31.5-36.5); Mean Corpuscular Volume 89 fL (80-100); Mean Platelet Volume 8.5 fL (9.1-12.4); NEUTROPHILS PERCENT AUTO 74 % (41-73); Platelet Count 270 K/mm3 (150-400); RDW Coefficient Variation 17.7 % (11.7-14.2); RDW Standard Deviation 56.9 fL (35.1-46.3); Red Blood Cell Count 3.94 M/mm3 (4.30-5.90); White Blood Cell Count 6.93 K/mm3 (4.00-11.30)
[2020-02-04 03:51] LABS: Alanine Aminotransfer (ALT/SGP 24 U/L (12-78); Albumin, Blood 3.1 g/dL (3.4-5.0); Albumin/Globulin Ratio 0.9 (0.8-1.8); Alk Phos 115 U/L (50-136); Anion Gap 12 mmol/L (6-16); Aspartate Aminotrans (AST/SGOT 45 U/L (12-37); Blood Urea Nitrogen 6 mg/dL (8-24); Bun/Creatinine Ratio 9.1 (12.0-20.0); CO2, Blood 23 mmol/L (21-32); Calcium, Blood 8.5 mg/dL (8.5-10.1); Chloride, Blood 106 mmol/L (98-108); Creatinine, Blood 0.66 mg/dL (0.60-1.20); Globulin, Blood 3.4 g/dL (2.2-4.0); Glomerular Filtration Rate >60 (60-); Glucose, Blood 64 mg/dL (70-99); Potassium, Blood 3.2 mmol/L (3.5-5.5); Sodium, Blood 141 mmol/L (136-145); Total Protein, Blood 6.5 g/dL (6.4-8.2)
--- NOTE | 2020-02-04 04:21 | NUR ---
SBT/SEDATION VACATION PROPOFOL WAS TURNED DOWN TO 20 AT 0330, AND THEN TURNED DOWN TO 10 AT 0350, WHERE PT WAS THEN PLACED ON SPONTANEOUS MODE PS 5/5, 25%. HE FOLLOWED A FEW COMMANDS, SQUEEZED MY FINGERS, SHOOK HIS HEAD "NO" TO A FEW QUESTIONS. HE DENIED PAIN. HE OPENED HIS EYES A LITTLE BIT, BUT HAS BEEN KEEPING THEM CLOSED. HE REMAINS ON PRESSURE SUPPORT, AND 10 OF PROPOFOL. PT APPEARS COMFORTABLE. WILL CONTINUE TO MONITOR.
--- NOTE | 2020-02-04 07:22 | NUR ---
BEDSIDE REPORT TAKEN. PT ON PS 5. PROPOFOL OFF. PRECEDEX WAS AT 0.6MCG AND TURNED DOWN TO 0.4MCG AT 0710 FOR BRIEF APNEIC PERIODS. PT MAY BE EXTUBATED TODAY. PT OPENS EYES TO VOICE.
--- NOTE | 2020-02-04 10:37 | NUR ---
PT HAS COPIOUS THICK TENACIOUS WARREN SPUTUM FROM ETT. PT WILL REMAIN INTUBATED TODAY. ABX ORDERED, K+ TO BE REPLACED.
--- NOTE | 2020-02-04 13:50 | NUR ---
PT BECAME SEVERELY AGITATED, THRASHING HEAD FROM SIDE TO SIDE. PRECEDEX INCREASED TO 0.5MCG FOLLOWED BY RESTARTING PROPOFOL AT 20MCG. RT PLACED PT BACK ON PREVIOUS SETTINGS AC16/450/25%/5. PIVOT 1.5 TUBE FEEDING STARTED AT 25ML/HR.
--- NOTE | 2020-02-04 18:04 | NUR ---
PT HAS BEEN BACK ON AC SETTING SINCE 1400. PROPOFOL REMAINS AT 20MCG, PRECEDEX AT 0.5MCG. PT RESTS WELL IN BETWEEN TURNS, BUT BECOMES VERY AGITATED W TURNS; COUGHING AND PULLING ON RESTRAINTS. FENT GIVEN X1. SECRETIONS HAVE DECREASED T/O SHIFT. DR ZAMORA HOPES TO EXTUBATE PT TOMORROW AM IF AM WEAN SUCCESSFUL.
--- NOTE | 2020-02-04 21:58 | NUR ---
INCREASED TUBE FEED PIVOT TUBE FEED INCREASED TO 35ML/HR (GOAL) WITH 30ML WATER FLUSHES Q4HR.
--- NOTE | 2020-02-04 22:05 | NUR ---
ASSUMED CARE AT 1900 PT LAYING IN BED INTUBATED WITH VENT SETTINGS AC 16, TV 450, PEEP 5, FIO2 25%. PRECEDEX INFUSING AT 0.5MCG/KG/HR. PROPOFOL INFUSING AT 20MCG/KG/MIN. BOTH INFUSING THROUGH SILVER POWER GLIDE. PIVOT INFUSING AT 25ML/HR (GOAL IS 35ML/HR) WITH 30ML WATER FLUSHES Q4HR. HOLDER IN PLACE AND DRAINING TO GRAVITY. HR 72. BP 109/67. SEE SHIFT ASSESSMENT FOR FULL ASSESSMENT.
--- NOTE | 2020-02-05 01:53 | NUR ---
CALLED DR ZAMORA NOTIFIED DR ZAMORA AT 0150 DUE TO PT ONLY HAVING ABOUT 100ML OF URINE OUT SO FAR THIS SHIFT. NEW ORDERS PROVIDED.
--- NOTE | 2020-02-05 03:00 | NUR ---
AGITATION PT INCREASE IN AGITATION AND MANEUVERED HIMSELF INTO A "C" POSITION AND GRABED AHOLD OF HIS ET TUBE AND PULLED IT OUT 2CM. PROPOFOL INCREASED TO 45MCG/KG/MIN AND PRN FENTANYL GIVEN. RT CALLED AND RESPONDED. NEW SECURE DEVISE PLACED.
[2020-02-05 04:18] LABS: BASOPHILS ABSOLUTE AUTO 0.01 K/mm3 (0.00-0.23); BASOPHILS PERCENT AUTO 0 % (0-2); EOSINOPHILS ABSOLUTE AUTO 0.09 K/mm3 (0.00-0.68); EOSINOPHILS PERCENT AUTO 1 % (0-6); Hematocrit 33.3 % (37.0-53.0); Hemoglobin 10.5 g/dL (13.5-17.5); IMMATURE GRAN ABSOLUTE AUTO 0.02 K/mm3 (0.00-0.10); IMMATURE GRAN PERCENT AUTO 0 % (0-1); LYMPHOCYTES ABSOLUTE AUTO 0.91 K/mm3 (0.84-5.20); LYMPHOCYTES PERCENT AUTO 14 % (21-46); MONOCYTES ABSOLUTE AUTO 0.55 K/mm3 (0.16-1.47); MONOCYTES PERCENT AUTO 9 % (4-13); Mean Corpuscular HGB 28.1 pg (26.0-34.0); Mean Corpuscular HGB Conc 31.5 g/dL (31.5-36.5); Mean Corpuscular Volume 89 fL (80-100); Mean Platelet Volume 8.9 fL (9.1-12.4); NEUTROPHILS ABSOLUTE AUTO 4.83 K/mm3 (1.96-9.15); NEUTROPHILS PERCENT AUTO 75 % (41-73); Platelet Count 232 K/mm3 (150-400); RDW Coefficient Variation 17.8 % (11.7-14.2); RDW Standard Deviation 57.6 fL (35.1-46.3); Red Blood Cell Count 3.74 M/mm3 (4.30-5.90); White Blood Cell Count 6.41 K/mm3 (4.00-11.30)
[2020-02-05 04:33] LABS: Anion Gap 6 mmol/L (6-16); Blood Urea Nitrogen 8 mg/dL (8-24); CO2, Blood 27 mmol/L (21-32); Calcium, Blood 8.2 mg/dL (8.5-10.1); Chloride, Blood 108 mmol/L (98-108); Creatinine, Blood 0.72 mg/dL (0.60-1.20); Glomerular Filtration Rate >60 (60-); Glucose, Blood 112 mg/dL (70-99); Phosphorus, Blood 2.4 mg/dL (2.5-4.9); Potassium, Blood 3.7 mmol/L (3.5-5.5); Sodium, Blood 141 mmol/L (136-145)
--- NOTE | 2020-02-05 06:35 | NUR ---
END OF SHIFT SUMMARY PT CONT TO BE INTUBATED WITH VENT SETTINGS AC 16, TV 450, PEEP 5, FIO2 25%. PT HAS EPISODES OF AGITATION WHERE HE WAS PULLING ON RESTRAINTS, SEE PREVIOUS NOTE ABOUT PULLING ON ET TUBE. FENTANYL GIVEN X6 ADJUNCT WITH SEDATION. MAX TEMP 98.4. HR 40-50'S. SBP 120-170. PIVOT INFUSING AT 35ML/HR (GOAL) WITH 30ML WATER FLUSHES THROUGH OG TUBE. HOLDER IN PLACE AND DRAINING TO GRAVITY. PROPOFOL INFUSING AT 45MCG/KG/MIN. PRECEDEX INFUSING AT 0.4MCG/KG/HR. POTASSIUM PHOS INFUSING. WILL REPORT TO AM RN WHEN AVAILABLE.
--- NOTE | 2020-02-05 07:43 | NUR ---
Assumed care of pt at 0700. Bedside report received from Arin CHEEMA. Pt responsive to painful stimulus. Sedated with 45 mcg/kg/min propofol, 0.4 mcg/kg/hr precedex. Ventilator settings AC 16/450/5/25%. SpO2 90% or greater. Lungs clear, dim in bases. HR 50s per monitor. BP stable. OG tube in place with feeds and flushes per orders. Francis catheter in place, patent and draining- temp probe present.
--- NOTE | 2020-02-05 09:14 | NUR ---
Ventilator changed to spontaneous mode, PS 8/5 and 25% FiO2. RR 22-24. Tidal volumes 350-400 mL. SpO2 90% or greater. Pt remains on 45 mcg/kg/min propofol and 0.4 mcg/kg/hr precedex.
--- NOTE | 2020-02-05 10:15 | NUR ---
LEFT WRIST IV ACCESS This RN attempted to flush IV in left wrist prior to administering meds. On flushing, this RN noted blood flowing backwards from IV into syringe. jewelry enameler, Esme notified. On assessment of site, it appears likely that this site is in an artery instead of a vein. IV site promptly removed and manual pressure held. Some swelling noted to area. Dr Rodriguez aware. Color, sensation, pulses, capillary refill equal BUE.
--- NOTE | 2020-02-05 12:09 | NUR ---
Propofol turned off. Pt alert, following some commands. Precedex remained on. Pt then extubated at 1035. Restraints removed at this time, but reapplied within 20 minutes due to self-endangering behavior in bed. Pt turning 180 degrees in bed, resulting with feet at head of bed and pt tangled in cords and lines, putting tension on IV lines. Pt not following commands provided by staff. Speaking in 2-3 word sentences, often incomprehensible. Will continue to assess continued need for restraints.
--- NOTE | 2020-02-05 13:57 | NUR ---
Precedex off. Pt agitated, calling out at times, but safe in bed with restraints in place. Will continue to reassess mentation and continued need for restraints.
--- NOTE | 2020-02-05 15:55 | NUR ---
Patient restarted on precedex due to increasing agitation. Pt continuously pulling at soft restraints on wrists, often removing restraints, therefore locked restraints placed. Pt throwing legs over side rails on bed, therefore bilat ankle restraints placed. Soft restraints to BLE, will assess if this resolves issue or if locked restraints are required. Dr Rodriguez aware of agitation, states plan to continue with precedex, stating haldol may be ordered if precedex is ineffective.
--- NOTE | 2020-02-05 17:25 | NUR ---
SUMMARY Patient currently on precedex at 0.7 mcg/kg/hr. A&O x 1. Reluctant to follow commands. Remains easily agitated. Pt on room air. SpO2 90% or greater. SR per monitor. BP stable. Excellent urine output through whitten catheter. PO fluids not trialed due to difficulty following commands, unable to perfrom bedside swallow eval. Will continue to closely monitor until care handoff and bedside report with oncoming RN.
--- NOTE | 2020-02-05 20:00 | NUR ---
INITAL SHIFT ASSESSMENT PT IS ALERT IN ROOM. HE IS YELLING OUT AND SINGING. HIS SPEECH IS FAILRY CLEAR. HOWEVER HE IS NOT ABLE TO FOLLOWING ANY COMMANDS OR CONVERSATIONS. HE IS FIXATED ON BEING LET OUT OF WRIST RESTRAINTS. THIS RN ATTEMPTED TO EDUCATE HIM AND HE JUST STARTED YELLING. WHEN ATTEMPTING TO LISTEN TO HIS LUNGS/HEART/ABD HE YELLED THAT ME TOUCHING HIM HURTS. LOOKED AT HIS SKIN IT IS CDI WITH NO APPARENT CAUSES FOR PAIN. WHEN DISCUSSING WHY THERE IS PAIN PT JUST KEPT YELLING THAT HE WANTS OUT OF RESTRAINTS. HE IS JERKING AT RESTRAINTS AND PULLS AT ANY LINE HE CAN GET A HOLD OF. PT ALSO HAS CHENG SOFT ANKLE RESTRAINTS IN PLACE AND PT KICKS WITH HIS LEGS WHILE THIS RN IS IN ROOM ASSESSING PEDAL PULSES. HIS VITALS ARE STABLE AT THIS TIME. PT DOES HAVE THE ABILITY TO CLEAR HIS SPUTUM AND SPITS ANYWHERE HE PLEASES. CAPSTICK WAS APPLIED TO HIS LIPS. OFFERED HIM A WET SWAB FOR HIS MOUTH AND HE DID NOT WANT THIS. HE JUST YELLS HE WANTS WATER. ATTEMPTED AGAIN TO EDUCATE HIM ABOUT THE NEED TO CLEAR HIS SWALLOW AND HE ISN'T FOLLOWING CONVERSATIONS. PT HAS A POWERGLIDE TO LEFT UPPER ARM. CDI DRESSING CHANGED TODAY. PRECEDEX GTT RUNNING FOR ASSISTANCE WITH SEDATION. SEE ICU FLOW SHEET FOR TITRATIONS NEEDED T/O SHIFT. PT DOES HAVE A LOW GRADE TEMP. ONE BLANKET WAS REMOVED AND WILL CON'T TO ATTEMPT TO REMOVE BLANKETS. OVERALL PT IS STABLE. WILL CON'T TO MONITOR AND KEEP PT SAFE T/O REMAINDER OF SHIFT.
[2020-02-06 03:47] LABS: BASOPHILS ABSOLUTE AUTO 0.02 K/mm3 (0.00-0.23); BASOPHILS PERCENT AUTO 0 % (0-2); EOSINOPHILS ABSOLUTE AUTO 0.12 K/mm3 (0.00-0.68); EOSINOPHILS PERCENT AUTO 2 % (0-6); Hemoglobin 11.2 g/dL (13.5-17.5); IMMATURE GRAN ABSOLUTE AUTO 0.01 K/mm3 (0.00-0.10); IMMATURE GRAN PERCENT AUTO 0 % (0-1); LYMPHOCYTES ABSOLUTE AUTO 1.03 K/mm3 (0.84-5.20); LYMPHOCYTES PERCENT AUTO 16 % (21-46); MONOCYTES ABSOLUTE AUTO 0.67 K/mm3 (0.16-1.47); MONOCYTES PERCENT AUTO 11 % (4-13); Mean Corpuscular HGB 28.6 pg (26.0-34.0); Mean Corpuscular HGB Conc 32.9 g/dL (31.5-36.5); Mean Corpuscular Volume 87 fL (80-100); Mean Platelet Volume 9.1 fL (9.1-12.4); NEUTROPHILS ABSOLUTE AUTO 4.42 K/mm3 (1.96-9.15); NEUTROPHILS PERCENT AUTO 71 % (41-73); Platelet Count 242 K/mm3 (150-400); RDW Coefficient Variation 17.8 % (11.7-14.2); RDW Standard Deviation 56.2 fL (35.1-46.3); Red Blood Cell Count 3.91 M/mm3 (4.30-5.90); White Blood Cell Count 6.27 K/mm3 (4.00-11.30)
[2020-02-06 04:11] LABS: Anion Gap 5 mmol/L (6-16); Blood Urea Nitrogen 5 mg/dL (8-24); Bun/Creatinine Ratio 7.1 (12.0-20.0); CO2, Blood 30 mmol/L (21-32); Chloride, Blood 105 mmol/L (98-108); Glomerular Filtration Rate >60 (60-); Glucose, Blood 111 mg/dL (70-99); Magnesium, Blood 1.8 mg/dL (1.6-2.4); Phosphorus, Blood 3.4 mg/dL (2.5-4.9); Potassium, Blood 3.6 mmol/L (3.5-5.5); Sodium, Blood 140 mmol/L (136-145)
--- NOTE | 2020-02-06 05:35 | NUR ---
SHIFT SUMMARY PT CON'T TO BE STABLE. HE ALSO CON'T TO YELL ABOUT WANTING TO BE OUT OF RESTRAINTS. HE CON'T TO NOT FOLLOW COMMANDS AND IS NOT COOPERATIVE WITH HIS CARE. HE DID HOWEVER LET TWO RN'S START AND IV TO HIS RIGHT ARM. HE YELLED, BUT WAS COOPERATIVE ENOUGH TO HOLD STILL. VITALS ARE STABLE. PT HAS AN ELEVATED BP. DISCUSSED WITH HAND BINDER STRIPPER GIVING LABETALOL IV HOWEVER IT WAS DECIDED THAT HIS HR WAS TOO LOW TO GIVE. PT CON'T TO BE ON RA WITH NO RESPIRATORY ISSUES. THIS RN HAS GIVEN PT WET SWABS T/O SHIFT WELL CHAPSTICK. HE CON'T TO HAVE TOUGH CUFFS TO HIS WRISTS AND WHEN HE IS AGGITATED HE WILL BANG THEM ON THE SIDE RAILS REPEATEDLY. HE IS ALSO IN BILATERAL SOFT ANKLE RESTRAINTS AND WILL KICK HIS LEGS WHEN AGGITATED AND BANGING ON RAILS WITH WRISTS. HOLDER CON'T TO IN PLACE AND DRAINING CLEAR YELLOW URINE. TKO FLUIDS TO LEFT UPPER ARM POWER GLIDE. PRECEDEX GTT AT 1.2 MCG. THIS SEEMS TO BE ALLOWING THE PT TO BE CALM ENOUGH TO DRIFT OFF TO SLEEP. THE BP CUFF INFLATES EVERY 30 MIN WHICH WAKES HIM AND MAKES HIM AGGITATED. WILL CON'T TO MONITOR AND KEEP PT SAFE TILL REPORT TO ONCOMING RN.
--- NOTE | 2020-02-06 07:53 | NUR ---
Assumed care of pt at 0700. Bedside report received from Verna CHEEMA. Pt sleeping in bed. Awakens with gentle verbal stimulus. A&O x 2. Does not answer all questions. Reluctant to follow commands. Speech garbled and difficult to understand. Initially on 1.2 mcg/kg/hr precedex, but titrated off at this time. SpO2 90% or greater RA. Sinus bradycardia with HR in 50s. BP stable. Abd tender on palpation. Pt will not answer questions to pain assessment. Will continue to closely assess. Francis catheter secured to bed, patent and draining clear yellow urine.
--- NOTE | 2020-02-06 10:52 | NUR ---
Precedex has been off since 0700. Pt has been out of restraints since 0830. Labile mood but overall redirectable and cooperative with care. Passed bedside swallow eval without difficulty. Oral care performed prior to eval. Pt out of bed to chair and then into shower. Tolerated activity well.
--- NOTE | 2020-02-06 17:04 | NUR ---
SUMMARY Pt has pleasant and cooperative with care for entire shift. Pt has been sitting up in chair since this AM. Pt has tab alarm in place but has not attempted to stand up without staff assistance. Pt performing all own ADLs with verbal cues. Francis catheter removed. Pt has not had BM. Miralax given. Pt medical floor status with telemetry. Will continue to monitor until care handoff with oncoming RN.
--- NOTE | 2020-02-06 17:53 | NUR ---
Pt to be transferred to medical floor. Telephone report given to Simon CHEEMA. Chart, medications, and belongings to be transferred with patient.
--- NOTE | 2020-02-06 18:23 | NUR ---
SBAR REPORT FROM ICU NURSE, ARRIVED IN WC, ASSISTED TO TRANSFER TO BED, SALINE LOCKED, RM AIR, EASILY AGITATED, STATES HE IS IN PAIN BUT CAN NOT SPECIFY WHERE OR LEVEL, ASSISTED TO BATHROOM, URINATED AND WASHED HANDS, ASSISTED BACK TO BED, VERY UNSTABLE ON FEET, NEEDED ASSISTANCE TO USE TV CONTROL, CURRENTLY SITTING IN BED, BED LOW, CALL LIGHT IN REACH
--- NOTE | 2020-02-06 19:11 | NUR ---
ALERT BUT ORINTATED TO SELF AND LOCATION, SAID HE WAS IN PAIN BUT COULD NOT LOCATE WHERE THE PAIN WAS ORIGINATING FROM, VERY EMOTIONAL BUT EASILY REDIRECTED, SALINE LOCKED, RM AIR, BED IN LOW POSITION,CALL LIGHT IN REACH, BSR SHARED WITH PT AND NOC NURSE, DENIED PAIN WHEN ASKED BY NOC NURSE, DIET IS SOFT/BITE SIZE, 2 PERSON ASSIST RECOMMENDED
--- NOTE | 2020-02-06 21:46 | NUR ---
2017 2004 172/110, TYLENOL 650MG PO GIVEN NOW. 2124 155/110; DR DUARTE NOTIFIED WITH MD INPUTTING ORDERS TO SYSTEM.
--- NOTE | 2020-02-07 04:39 | NUR ---
SHIFT SUMMARY: 49 Y/O MALE RESTED COMFORTABLY ALL SHIFT; DENIES NAUSEA, C/O GENERALIZED ACHE RATED 7/10 WITH TYLENOL 650MG PO GIVEN WITH RELIEF FELT; ALERT AND ORIENTED X 2, ABLE TO FOLLOW SIMPLE VERBAL COMMANDS; PT REQUIRED OCCASIONAL REDIRECTION WITH ALL ACTIVITIES AT TIMES BY NURSING STAFF; PT HAD HYPERTENSIVE EPISODE BEGINNING OF SHIFT WITH CLONIDINE 0.1MG PO GIVEN WITH GOOD RELIEF NOTED; BED ALARM APPLIED FOR SAFETY, BED LOW POSITION WITH CALL LIGHT AT SIDE.
[2020-02-07 08:45] LABS: Magnesium, Blood 2.1 mg/dL (1.6-2.4); Phosphorus, Blood 3.9 mg/dL (2.5-4.9)
--- NOTE | 2020-02-07 15:35 | NUR ---
CALLED DR. TEAGUE AT 1500 TO NOTIFY THAT PATIENT REQUESTS TO LEAVE AMA. PT AGREEABLE TO GO FOR XRAYS OF HIPS/PELVIS. RETURNED AT 1530 FROM XRAY, REQUESTS TO LEAVE AMA, AWARE. PATIENT LEAVING WITH ALL PERSONAL BELONGINGS IN HIS POSSESSION @ 1538. VERBALIZED UNDERSTANDING OF THE RISKS OF LEAVING AMA, INCLUDING . DECLINED FURTHER TREATMENT.
--- NOTE | 2020-02-07 16:48 | NUR ---
1200: PATIENT C/O PAIN / TO RIGHT HIP/GROIN. HAD EMESIS. CRYING. DR TEAGUE NOTIFIED. TO SEE PATIENT SOON.
[2020-02-07] MEDS ORDERED: OLAN5 PO (21:24)
[2020-02-07] MEDS ORDERED: CHLO25 PO (21:24)
[2020-02-07] MEDS ORDERED: LEVETIRACETAM1000 M1 PO (21:24)
[2020-02-07] MEDS ORDERED: THIAMINE HCL PO (21:25)
[2020-02-07] MEDS ORDERED: FOLI1 PO (21:25)
== END 2020-02-07 16:00 | disposition left against medical advice (07) | DRG 894 ==
LOC: ER 04:43 → ICUE 07:30 → ICUW 07:30 → ICUE 07:54 → MEDS 02-06 18:08
PROVIDERS: Emergency Medicine; Internal Medicine Pulmonary Disease; ADMIT Internal Medicine
PROC: 0BH18EZ Insertion of Endotracheal Airway into Trachea, Via Natural or Artificial Opening Endoscopic (ICD-10-PCS; principal; 2020-02-03)
PROC: 5A1945Z Respiratory Ventilation, 24-96 Consecutive Hours (ICD-10-PCS; 2020-02-03)
DX: F10.239 Alcohol dependence with withdrawal, unspecified (principal); J69.0 Pneumonitis due to inhalation of food and vomit; J96.00 Acute respiratory failure, unspecified whether with hypoxia or hypercapnia; E87.4 Mixed disorder of acid-base balance; E87.2 Acidosis; G40.409 Other generalized epilepsy and epileptic syndromes, not intractable, without status epilepticus; Z59.0 Homelessness; F20.9 Schizophrenia, unspecified; F17.210 Nicotine dependence, cigarettes, uncomplicated; E87.6 Hypokalemia; F15.10 Other stimulant abuse, uncomplicated; Z78.1 Physical restraint status; J44.9 Chronic obstructive pulmonary disease, unspecified; M25.552 Pain in left hip; Y90.0 Blood alcohol level of less than 20 mg/100 ml
CPT/HCPCS: 31500; 31720; 36415; 36600; 51702; 70450; 71045; 72125; 73523; 80047; 80048; 80053; 81001; 82140; 82803; 82947; 83605; 83735; 84100; 84132; 84484; 85014; 85025; 85610; 87040; 87070; 87205; 93005; 93010; 94002; 94003; 96365-59; 96375-59; 97112; 97116; 97162; 97166; 97530; 99285-25; C1751; G0008; G0480; J0330; J0456; J0696; J1650; J1885; J1953; J2060; J2250; J2405; J2704; J3010; J3411; J3480; J7030; J7050; J7060; Q2038

== ENCOUNTER 2020-02-07 20:58 | Inpatient (IN) | payer MEDICARE ==
[~2020-02-07] VITALS: Ht 180.3 cm; Wt 58.6 kg
[2020-02-07] MEDS ORDERED: LEVETIRACETAM1000 M1 PO (21:24)
[2020-02-07] MEDS ORDERED: OLAN5 PO (21:24)
[2020-02-07] MEDS ORDERED: CHLO25 PO (21:24)
[2020-02-07] MEDS ORDERED: THIAMINE HCL PO (21:25)
[2020-02-07] MEDS ORDERED: FOLI1 PO (21:25)
[2020-02-08 00:19] LABS: BASOPHILS ABSOLUTE AUTO 0.03 K/mm3 (0.00-0.23); BASOPHILS PERCENT AUTO 0 % (0-2); EOSINOPHILS ABSOLUTE AUTO 0.13 K/mm3 (0.00-0.68); EOSINOPHILS PERCENT AUTO 2 % (0-6); Hematocrit 37.3 % (37.0-53.0); Hemoglobin 11.6 g/dL (13.5-17.5); IMMATURE GRAN ABSOLUTE AUTO 0.03 K/mm3 (0.00-0.10); IMMATURE GRAN PERCENT AUTO 0 % (0-1); LYMPHOCYTES PERCENT AUTO 13 % (21-46); MONOCYTES ABSOLUTE AUTO 1.04 K/mm3 (0.16-1.47); MONOCYTES PERCENT AUTO 13 % (4-13); Mean Corpuscular HGB 27.8 pg (26.0-34.0); Mean Corpuscular HGB Conc 31.1 g/dL (31.5-36.5); Mean Corpuscular Volume 89 fL (80-100); Mean Platelet Volume 9.3 fL (9.1-12.4); NEUTROPHILS ABSOLUTE AUTO 5.63 K/mm3 (1.96-9.15); NEUTROPHILS PERCENT AUTO 72 % (41-73); Platelet Count 311 K/mm3 (150-400); RDW Coefficient Variation 18.1 % (11.7-14.2); RDW Standard Deviation 59.5 fL (35.1-46.3); Red Blood Cell Count 4.17 M/mm3 (4.30-5.90); White Blood Cell Count 7.86 K/mm3 (4.00-11.30)
[2020-02-08 00:50] LABS: Body Fluid Crystals NEG (NEGATIVE)
[2020-02-08 00:57] LABS: BODY FLUID RBC 0.033 M/mm3 (0-0); RBC Count, Synovial Fluid 33000 /mm3 (0-0); WBC Count, Synovial Fluid 1529 /mm3 (0-180)
[2020-02-08 01:23] LABS: Appearance, Synovial Fluid Hazy (Clear); Color, Synovial Fluid Red (None-P Yel); Lymphs, Synovial Fluid 78 % (0-15); Monocytes/Macrophages, Synovia 8 % (0-65); Neutrophils, Synovial Fluid 14 % (0-24)
[2020-02-08 01:23] LABS: Alanine Aminotransfer (ALT/SGP 32 U/L (12-78); Albumin, Blood 3.5 g/dL (3.4-5.0); Albumin/Globulin Ratio 0.8 (0.8-1.8); Alk Phos 97 U/L (50-136); Anion Gap 6 mmol/L (6-16); Aspartate Aminotrans (AST/SGOT 50 U/L (12-37); Bilirubin, Total 0.3 mg/dL (0.1-1.0); Blood Urea Nitrogen 19 mg/dL (8-24); Bun/Creatinine Ratio 20.4 (12.0-20.0); CO2, Blood 30 mmol/L (21-32); Calcium, Blood 9.8 mg/dL (8.5-10.1); Chloride, Blood 102 mmol/L (98-108); Creatinine, Blood 0.93 mg/dL (0.60-1.20); Globulin, Blood 4.2 g/dL (2.2-4.0); Glomerular Filtration Rate >60 (60-); Glucose, Blood 90 mg/dL (70-99); Potassium, Blood 3.6 mmol/L (3.5-5.5); Sodium, Blood 138 mmol/L (136-145); Total Protein, Blood 7.7 g/dL (6.4-8.2)
[2020-02-08 01:26] LABS: International Normalized Ratio 0.96; Prothrombin Time Results 10.3 Sec (9.7-11.5)
--- NOTE | 2020-02-08 03:15 | NUR ---
PT TO ICU 10 VIA SYED WITH ED RN AND TECH, PT DROWSY, ORIENTED TO SELF, LOCATION, AND FOLLOWING DIRECTIONS, CIWA 3 UPON ARRIVAL. O2 SATURATIONS> 90% ON RA, MONITOR SHOWS SINUS RHYTHM WITH HR 70'S, BP STABLE. PT REPORTS PAIN TO LOWER ABDOMEN AND R HIP AT REST AND WITH PALPATION. BANDAID NOTED TO R HIP, SEE ED PHYSICIAN NOTES. PT NOTABLY DISHEVELED, WEARING HOSPITAL SOCKS AND PAPER SCRUB PANTS FROM PREVIOUS VISIT, SOCKS AND SCRUB PANTS CHANGED UPON ADMISSION. PT DENIES ANY DRUG OR ALCOHOL USE SINCE LEAVING HOSPITAL ON PREVIOUS DAY. PT BEGAN TO HAVE INCREASING ITCHINESS T/O BODY, WITH MILD ANXIOUSNESS AND RESTLESSNESS IN BED, 2MG ATIVAN ADMINISTERED. VANCO CURRENTLY INFUSING, CALL LIGHT WITHIN REACH, PT APPEARS TO BE SLEEPING AT THIS TIME.
--- NOTE | 2020-02-08 06:04 | NUR ---
SHIFT SUMMARY NO ACUTE CHANGES SINCE PREVIOUS NOTE. PT SLEPT WELL FOR REMAINDER OF SHIFT, VSS. PT VOIDS IN URINAL WITH ASSISTANCE, PASSING FLATUS, REQUESTING FOOD, NPO STATUS EXPLAINED TO PT. PT REPOSITIONS SELF IN BED, CALL LIGHT WITHIN REACH.
[2020-02-08 08:44] LABS: BASOPHILS ABSOLUTE AUTO 0.04 K/mm3 (0.00-0.23); BASOPHILS PERCENT AUTO 1 % (0-2); EOSINOPHILS ABSOLUTE AUTO 0.18 K/mm3 (0.00-0.68); EOSINOPHILS PERCENT AUTO 4 % (0-6); Hematocrit 35.8 % (37.0-53.0); Hemoglobin 11.4 g/dL (13.5-17.5); IMMATURE GRAN ABSOLUTE AUTO 0.02 K/mm3 (0.00-0.10); IMMATURE GRAN PERCENT AUTO 1 % (0-1); LYMPHOCYTES ABSOLUTE AUTO 0.86 K/mm3 (0.84-5.20); LYMPHOCYTES PERCENT AUTO 21 % (21-46); MONOCYTES ABSOLUTE AUTO 0.59 K/mm3 (0.16-1.47); MONOCYTES PERCENT AUTO 14 % (4-13); Mean Corpuscular HGB 28.4 pg (26.0-34.0); Mean Corpuscular HGB Conc 31.8 g/dL (31.5-36.5); Mean Corpuscular Volume 89 fL (80-100); Mean Platelet Volume 8.9 fL (9.1-12.4); NEUTROPHILS ABSOLUTE AUTO 2.49 K/mm3 (1.96-9.15); NEUTROPHILS PERCENT AUTO 60 % (41-73); Platelet Count 278 K/mm3 (150-400); RDW Standard Deviation 58.5 fL (35.1-46.3); Red Blood Cell Count 4.01 M/mm3 (4.30-5.90); White Blood Cell Count 4.18 K/mm3 (4.00-11.30)
[2020-02-08 09:00] LABS: Alanine Aminotransfer (ALT/SGP 24 U/L (12-78); Albumin/Globulin Ratio 0.9 (0.8-1.8); Alk Phos 82 U/L (50-136); Anion Gap 6 mmol/L (6-16); Aspartate Aminotrans (AST/SGOT 32 U/L (12-37); Bilirubin, Total 0.3 mg/dL (0.1-1.0); Blood Urea Nitrogen 12 mg/dL (8-24); Bun/Creatinine Ratio 17.2 (12.0-20.0); CO2, Blood 30 mmol/L (21-32); Calcium, Blood 8.5 mg/dL (8.5-10.1); Chloride, Blood 105 mmol/L (98-108); Globulin, Blood 3.5 g/dL (2.2-4.0); Glomerular Filtration Rate >60 (60-); Glucose, Blood 119 mg/dL (70-99); Potassium, Blood 3.2 mmol/L (3.5-5.5); Sodium, Blood 141 mmol/L (136-145); Total Protein, Blood 6.5 g/dL (6.4-8.2)
--- NOTE | 2020-02-08 10:20 | NUR ---
PT RESTING IN BED. A/O TO PERSON AND PLACE. PT HAS BEEN SLEEPING ON AND OFF ALL MORNING. AFEBRILE. HAS BANDAID TO R HIP, NO REDNESS OR SWELLING. BANANA BAG COMPLETE. LS CLEAR. SINUS RHYTHM ON THE MONITOR. PT WAS CHANGED TO MEDICAL STATUS THIS AM BY DR. TEAGUE. PT BEING TRANSFERED TO MEDICAL FLOOR ROOM 340. NO SIGN OF DISTRESS. REPORT GIVEN TO DAVIS CHEEMA WHO WILL ASSUME CARE.
--- NOTE | 2020-02-08 13:42 | NUR ---
echocardiogram complete
--- NOTE | 2020-02-08 15:42 | NUR ---
SHIFT SUMMARY PT WAS TRANSFERRED FROM ICU THIS MORNING AND HAS BEEN RESTING IN BED WITH EYES CLOSED. HE DOES RESPOND TO HIS NAME BUT HAS NO COMPLAINTS. IV MEDS HAVE BEEN GIVEN ORDERED WITH NO ISSUE. HE AWAKES TO USE THE URINAL AT THE BEDSIDE. THE BED ALARM IS ON FOR PT SAFETY.
--- NOTE | 2020-02-09 04:18 | NUR ---
SHIFT SUMMARY ASSUMED CARE OF PT AT 1900. PT IS A/OX3. PT IS TIRED. HEART SOUNDS REGULAR, LUNG SOUNDS CLEAR. PT C/O PAIN IN HIS R LEG AND T/O THIS BODY, MEDICATED PER EMAR. PT CIWAH RANGED FROM 7-9 THIS SHIFT. PT USED URINAL AT BEDSIDE. NO ACUTE EVENTS DURING THE NIGHT. PT SLEPT T/O THE NIGHT. CALL LIGHT IN REACH, BED IN LOWEST POSTION, WILL CONTINUE TO MONITOR.
--- NOTE | 2020-02-09 17:21 | NUR ---
SHIFT SUMMARY PT IS ALERT AND DISORIENTED TO DATE. CIWA SCORES HAVE BEEN 7-10 TODAY, SEE EMAR FOR PRN MEDICATION FOR CIWA. PT C/O RIGHT HIP/LEG PAIN TODAY, IMPLEMENTED NEW PAIN CONTROL ORDERS, PT WAS ABLE TO REST THIS AFTERNOON. VITALS HAVE BEEN STABLE. PT WAS REQUESTING TO GO OUT AND SMOKE TODAY, ORDER FOR NICOTINE PATCH OBTAINED.
--- NOTE | 2020-02-09 18:29 | NUR ---
PT WAS EATING DINNER WHEN RECEIVING TEAM MEMBER ENTERED ROOM AND FOUND PT ATTEMPTING TO STAB BUTTER KNIFE INTO HIS NECK. RECEIVING TEAM MEMBER REMOVED SILVERWARE. AFTER QUESTIONING, PT SAID HE WAS ATTEMPTING TO END HIS LIFE. PT BECAME VERY TEARFUL AND WAS EXPRESSING HOW SAD HE WAS THAT HIS FAMILY IS GONE. SUICIDE SCORE FOUND PT TO BE HIGH RISK. BEADER TENDER NOTIFIED, RECEIVING TEAM MEMBER PLACED AT BEDSIDE. DR TEAGUE NOTIFIED OF FINDINGS AND NEW ORDERS RECEIVED.
[2020-02-10 06:05] LABS: Hemoglobin 10.7 g/dL (13.5-17.5); Mean Corpuscular HGB 28.1 pg (26.0-34.0); Mean Corpuscular HGB Conc 31.5 g/dL (31.5-36.5); Mean Corpuscular Volume 89 fL (80-100); Mean Platelet Volume 9.2 fL (9.1-12.4); Platelet Count 320 K/mm3 (150-400); RDW Coefficient Variation 17.8 % (11.7-14.2); RDW Standard Deviation 58.4 fL (35.1-46.3); Red Blood Cell Count 3.81 M/mm3 (4.30-5.90); White Blood Cell Count 9.61 K/mm3 (4.00-11.30)
--- NOTE | 2020-02-10 06:05 | NUR ---
SHIFT SUMMARY: BP ELEVATED AT 156/105, 160/108 AND 145/99 UPON RECHECK AFTER PRN ANALGESICS. CIWA SCORE OF 9 AND 7. LIBRIUM GIVEN X1. REQUIRES 2 MAX ASSIST TO STAND, VERY UNSTABLE AND REPORTS FEELING DIZZY WHILE STANDING TO VOID. MED X 2 FOR RIGHT HIP PAIN W/GOOD EFFECT. REMAINS IN MOD SI PRECAUTIONS TONIGHT. TEARFUL WHEN ANSWERING SUICIDE RISK REASSESSMENT QUESTIONS. PT REPORTS HAVING CUT HIS WRISTS AND RECENTLY DRANK GASOLINE IN ATTEMPTS TO SELF HARM AND STATES HE WOULD "PROBABLY USE DRUGS" WHEN ASKED ABOUT PLANS FOR SUICIDE. NO ATTEMPTS TO SELF HARM TONIGHT. DOES NOT CALL APPROPRIATELY FOR ASSISTANCE AND HAS SOUNDED BED ALARM IN ATTEMPT TO SELF T/F TO VOID. REMOTE VIDEO MONITORING IN PLACE. WILL CONT TO MONITOR CLOSELY.
[2020-02-10 06:40] LABS: Anion Gap 4 mmol/L (6-16); Blood Urea Nitrogen 17 mg/dL (8-24); CO2, Blood 30 mmol/L (21-32); Calcium, Blood 9.1 mg/dL (8.5-10.1); Chloride, Blood 107 mmol/L (98-108); Creatinine, Blood 0.65 mg/dL (0.60-1.20); Glomerular Filtration Rate >60 (60-); Glucose, Blood 130 mg/dL (70-99); Magnesium, Blood 2.1 mg/dL (1.6-2.4); Potassium, Blood 4.3 mmol/L (3.5-5.5); Sodium, Blood 141 mmol/L (136-145)
--- NOTE | 2020-02-10 10:59 | NUR ---
Suicide Safety Plan interview occurred 0945 Room 344. Pt on camera for monitoring. Pt laying in bed under covers. He was unable to navigate how to turn the volume down on the TV. He reports he is [facility] and serene in "here" for a year. His relaying of history is non-linear, and unable to give dates or timelines of how he got to [place]. [facility], it appears his older brother from an overdose, and pt left [place] because of that. [place]", and pt not sure if his father is alive or not, he reports no communications with him. His father is [employer] and pt. thinks he is in [place], [place]. He has older sister also. Pt. is homeless and lives under bridge in [facility]. He is on SSD for "seizures and depression". He unsure if he has had medications for depression, but thinks he has Dilantin for sizures. Pt. speech is slurred and thinking appears to be impaired. He reports no memory of holding a utensil to his neck, as documented in the notes. He is unsure if he has had previous self harm attempts, and reports he does not want to . He repeated several time he "wants to go home", which clarified meant to [place]. He was unsure why he has made no attempts to return to [place]--but he would hitchike. Report given to Charge Nurses of patients disorientation, but patients' willingness to engage in talking with this sports book writer. Nurse reports patient had high ammonia levels at admit. Plan not fully completed as patient reports no plan for suicide or intent. Form partially completed and given to patient and in chart. Vanna Chen M.Ed., [facility], Behavior Health Director
--- NOTE | 2020-02-10 18:04 | NUR ---
PT COOPERATIVE T/O THE SHIFT, UP TO BATHROOM WITH WALKER AND STANDBY ASSIST, CAN BE IMPULSIVE, BED AND CHAIR ALARM ARMED. CIWA THIS EVENING WAS A 5, HAS NOT NEEDED LIBRIUM TODAY, WILL C/O BEING "DIZZY" AT TIMES WHILE SITTING IN CHAIR OR BED. MOD SI, NO ATTEMPTS TODAY, ON CAMERA, NO ACUTE CHANGES NOTED THIS SHIFT, WILL CONTINUE TO MONITOR AND REPORT TO ONCOMING RN
--- NOTE | 2020-02-11 03:49 | NUR ---
SHIFT SUMMARY A/O, ABLE TO MAKE NEEDS KNOWN. COOPERATIVE WITH CARE. CALLS AND ANSWERS QUESTIONS APPROPRIATELY. SLIGHTLY SLURRED SPEECH AND DIFFICULT TO UNDERSTAND AT TIMES. STATED PAIN TO RLQ/HIP RATED 9/10 GIVEN SCHEDULED AND PRN MEDICATIONS PER EMAR. UP WITH 1P ASSIST TO BATHROOM; GAIT STEADY. REMAINS ON MODERATE SI; NO ATTEMPTS MADE, REMAINS ON CAMERA. APPEARED TO REST OFF AND ON DURING SHIFT. VSS. NO ACUTE CHANGES NOTED OVERNIGHT. BED REAMINED IN LOWEST POSITION. BELONGINGS WITHIN REACH. WCTM. REPORT TO ONCOMING RN.
[2020-02-11 07:05] LABS: Alanine Aminotransfer (ALT/SGP 28 U/L (12-78); Albumin, Blood 2.8 g/dL (3.4-5.0); Albumin/Globulin Ratio 0.8 (0.8-1.8); Alk Phos 70 U/L (50-136); Anion Gap 3 mmol/L (6-16); Aspartate Aminotrans (AST/SGOT 23 U/L (12-37); Bilirubin, Total 0.2 mg/dL (0.1-1.0); Blood Urea Nitrogen 13 mg/dL (8-24); Bun/Creatinine Ratio 17.2 (12.0-20.0); CO2, Blood 28 mmol/L (21-32); Calcium, Blood 8.2 mg/dL (8.5-10.1); Chloride, Blood 112 mmol/L (98-108); Creatinine, Blood 0.76 mg/dL (0.60-1.20); Globulin, Blood 3.4 g/dL (2.2-4.0); Glomerular Filtration Rate >60 (60-); Glucose, Blood 106 mg/dL (70-99); Potassium, Blood 4.1 mmol/L (3.5-5.5); Sodium, Blood 143 mmol/L (136-145); Total Protein, Blood 6.2 g/dL (6.4-8.2)
--- NOTE | 2020-02-11 10:31 | NUR ---
AMA PT WANTING TO LEAVE AMA, NOT ON 2MD HOLD AT THIS TIME. T/C TO DR ROBERTSON TO INFORM, NO NEW ORDERS.
--- NOTE | 2020-02-11 11:23 | NUR ---
WARNER PT DRESSED AND WALKED OUT WITH HIS BELONGINGS, WARNER RISK FORM DISCUSSED WITH PT AND SIGNATURE OBTAINED
== END 2020-02-11 11:23 | disposition left against medical advice (07) | DRG 564 ==
LOC: ER 20:58 → MEDS 20:59 → ICUW 20:59 → ER 20:59 → ICUW 02-08 01:01 → MEDS 02-08 10:25
PROVIDERS: Emergency Medicine; Internal Medicine; ADMIT Internal Medicine
DX: M25.451 Effusion, right hip (principal); J69.0 Pneumonitis due to inhalation of food and vomit; F10.239 Alcohol dependence with withdrawal, unspecified; F20.9 Schizophrenia, unspecified; J44.9 Chronic obstructive pulmonary disease, unspecified; F17.210 Nicotine dependence, cigarettes, uncomplicated; J32.9 Chronic sinusitis, unspecified; F10.20 Alcohol dependence, uncomplicated; G40.409 Other generalized epilepsy and epileptic syndromes, not intractable, without status epilepticus; F15.10 Other stimulant abuse, uncomplicated; E83.42 Hypomagnesemia; T14.91XA Suicide attempt, initial encounter; X78.1XXA Intentional self-harm by knife, initial encounter; Y92.230 Patient room in hospital as the place of occurrence of the external cause
CPT/HCPCS: 20611; 36415; 74176; 80048; 80053; 82140; 82947; 83605; 83735; 85025; 85027; 85610; 87040; 87070; 87205; 89051; 89060; 93005; 93010; 93306; 96365; 96375; 97110; 97116; 97162; 99285-25; A9270; A9270-GY; J0696; J1650; J1885; J2060; J2930; J3010; J3370; J3411; J3475; J7042; J7050

== ENCOUNTER 2020-02-14 19:01 | Emergency (ER) | payer MEDICARE ==
[~2020-02-14] VITALS: Ht 167.6 cm; Wt 68.0 kg
[~2020-02-14 19:01] MED LIST changes: +LEVETIRACETAM1000 M1 PO; +THIAMINE HCL PO
== END 2020-02-14 19:19 | disposition home or self-care (01) ==
LOC: ER 19:01
DX: M25.551 Pain in right hip (principal); J44.9 Chronic obstructive pulmonary disease, unspecified; G40.909 Epilepsy, unspecified, not intractable, without status epilepticus; F20.9 Schizophrenia, unspecified; I10 Essential (primary) hypertension; F32.9 Major depressive disorder, single episode, unspecified; F17.210 Nicotine dependence, cigarettes, uncomplicated; Z91.018 Allergy to other foods
CPT/HCPCS: 99282